=== PATIENT | female | born 1955 | race Caucasian/White ===

== ENCOUNTER 2018-07-22 14:28 | Outpatient (CLI) | payer MEDICARE ==
--- NOTE | 2018-07-22 16:09 | MRI ---
BRAIN MRI WITHOUT CONTRAST 07/22/18 COMPARISON: None. HISTORY: CVA, multiple strokes, mental and speech impairment. TECHNIQUE: Multiplanar and multisequence MR imaging of the brain is obtained with and without contrast. FINDINGS: There is a punctate focus of probable restricted diffusion within the periventricular white matter on the right adjacent to the atrium of the right lateral ventricle. Three additional foci of restricte d diffusion noted on the right consistent with acute infarction, the largest measuring 1 cm, involvi ng periventricular white matter adjacent to anterior aspect of right lateral ventricle, deep white m atter and posterior right frontal region, and subcortical white matter and right parietal region, all consistent with areas of acute infarction. There is no acute infarction identified within the brains tem or the posterior fossa/cerebellum. No acute infarction of the left cerebral hemisphere. The axial gradient echo imaging demonstrates no evidence for intracranial hemorrhage. There are numerous foci of increased T2 and FLAIR signal within the periventricular deep and subcorti tiffanie white matter evidence of small vessel disease. There is no midline shift or mass effect. Diffuse cerebral volume loss. Imaged paranasal sinuses/mastoid air cells demonstrate no acute findings. IMPRESSION: Multiple foci of acute infarction noted within the right cerebral hemisphere. There is extensive sma ll vessel disease with associated cerebral volume loss. No intracranial hemorrhage, midline shift or mass effect. Code Iris Schmitt made aware at 4pm on 07/22/2017. CTA head and neck recommended. POS: [facility]
--- NOTE | 2018-07-22 17:19 | ULT ---
CAROTID ARTERIAL DOPPLER ULTRASOUND: 07/22/18 COMPARISON: None. HISTORY: Vascular dementia. Multiple acute infarctions on the right seen on brain MRI also performed 07/22/18. TECHNIQUE: Multiplanar yañez scale sonographic imaging of arterial structures of the neck obtained with color joão w and spectral analysis . FINDINGS: Provided imaging demonstrates patency of right common carotid artery. However, there is an abnormal w aveform within the right common carotid artery which is of low amplitude and demonstrates a tardus pa rvus waveform. Similar abnormal waveforms are noted throughout the right CCA and right ICA with marke dly decreased velocities throughout the carotid system on the right. Right external carotid artery appears patent. Right vertebral artery is nonvisualized and may be occl uded. Left vertebral artery appears patent. Left CCA, ICA and ECA appear patent. Left vertebral artery is patent and demonstrates antegrade blood flow. There are elevated velocities noted within the left internal carotid artery measuring up to 203 cm/s correlating with a moderate de gree of stenosis (50-69%). ICA/CCA ratio on the left is 2.0. IMPRESSION: Abnormal high resistance tardus parvus waveforms with decreased amplitude involving the carotid syste m on the right. Further assessment via CT angiogram of the neck is advised. In addition, right verteb ral artery is not visualized and may be occluded. Elevated velocity within the interna carotid artery on the left suggests hemodynamically significant stenosis. POS: [facility]
== END 2018-07-22 14:29 | disposition home or self-care (01) ==
LOC: BICULT 14:28
PROVIDERS: ATTEND Family Medicine
DX: I63.9 Cerebral infarction, unspecified (principal); F01.50 Vascular dementia, unspecified severity, without behavioral disturbance, psychotic disturbance, mood disturbance, and anxiety; I67.9 Cerebrovascular disease, unspecified
CPT/HCPCS: 70551; 82570; 84156; 93880

== ENCOUNTER 2018-09-17 02:48 | Inpatient (IN) | payer MEDICARE ==
[2018-09-17] MEDS ORDERED: methylPREDNISolone Sod Succ/PF 125 MG/2 ML VIAL ONE (03:29)
[2018-09-17] MEDS ORDERED: Magnesium 2 GM/50 ML BAG (IN WATER) ONE (03:38)
--- NOTE | 2018-09-17 03:38 | PDOC.FPRHP ---
- History of Present Illness Chief Complaint: malaise History of Present Illness: 63yo F with extensive pmh including CHF, DM, CAD with stents presents as transfer from [facility] with complaint of 1 day hx of cough, sob, nausea and vomiting. Pt was hypotensive and febrile there with Chest CT showing evidence of RUL infiltrate. Pt was started on levophed and transfered to [place]. At time of exam pt was on bipap and unable to give much detail of hx. ED Course: Central Line placed, levophed, solumedrol, Mg, heparin - Allergies/Adverse Reactions Allergies Allergy/AdvReac Type Severity Reaction Status Date / Time iodine Allergy Unknown Verified 06/30/13 08:49 - Home Medications Medication Instructions Recorded Confirmed Type Clopidogrel Bisulfate [Plavix] 75 mg PO DAILY 06/30/13 06/30/13 History Isosorbide Dinitrate 20 mg PO BID 06/30/13 06/30/13 History Lovastatin [Altoprev] 20 mg PO HS 06/30/13 06/30/13 History Metoprolol Tartrate 100 mg PO DAILY 06/30/13 06/30/13 History Potassium Chloride [K-Dur] 20 meq PO BID 06/30/13 06/30/13 History Ranitidine HCl 150 mg PO BID 06/30/13 09/17/18 History Temazepam 30 mg PO HS 06/30/13 09/17/18 History Torsemide [Demadex] 50 mg PO DAILY 06/30/13 09/17/18 History glipiZIDE 10 mg PO BID 06/30/13 06/30/13 History metFORMIN HCl 1,000 mg PO BID- 06/30/13 06/30/13 History Ipratropium/Albuterol Sulfate 3 ml NEB PRN PRN #0 neb 07/07/13 09/17/18 Rx [DuoNeb] Levofloxacin [Levaquin] 750 mg PO 0600 #5 tab 07/07/13 Rx predniSONE 20 mg PO BID #10 tab 07/07/13 Rx Acetaminophen With Codeine 1 tablet PO Q6HR PRN 09/17/18 09/17/18 History [Tylenol with Codeine #3] Aspirin [Aspir-Low] 81 mg PO DAILY 09/17/18 09/17/18 History Atorvastatin Calcium 80 mg PO DAILY 09/17/18 09/17/18 History Fenofibrate Nanocrystallized 145 mg PO DAILY 09/17/18 09/17/18 History [Fenofibrate] Gabapentin 600 mg PO BID 09/17/18 09/17/18 History Insulin Degludec [Tresiba 80 unit SQ QAM 09/17/18 09/17/18 History Flextouch U-200] Levothyroxine Sodium [Synthroid] 50 mcg PO DAILY 09/17/18 09/17/18 History Metoprolol Succinate [Toprol Xl] 50 mg PO DAILY 09/17/18 09/17/18 History Nitroglycerin [Nitrostat] 0.4 mg SL Q5MIN PRN 09/17/18 09/17/18 History Prasugrel [Effient] 10 mg PO DAILY 09/17/18 09/17/18 History Tiotropium [Spiriva Handihaler] 18 mcg INH DAILY 09/17/18 09/17/18 History - History PMHx: HFrEF, COPD, DM, HTN, HLD, hypothyroid, NETTE, CVA, CKD 4, GERD PSHx: appendectomy, hysterectomy, cardiac stents, renal stent FHx: unable to obtain from pt Social: Hx of smoking use - Review of Systems ROS unobtainable: other (bipap- some ROS gained from ED chart review) Respiratory: reports: cough, shortness of breath Gastrointestinal: reports: nausea, vomiting Neurological: reports: other (denies pain anywhere) - Vital signs BP: [90/66] HR: [105] RR: [24] Tmax: [103.1] Pox: [94]% on [bipap] Wt: [107kg ] - Physical Exam Constitutional: other (moderate to severe respiratory distress) HEENT: normocephalic and atraumatic, EOMI, grossly normal vision, grossly normal hearing Neck: supple, trachea midline Chest: no-tender to palpation Heart: RRR, normal S1/S2, other (grade 4/6 holosystolic murmur, extremeties cool to touch) Lungs: good air movement, other (inspiratory and expiratory crackles in RUL) Abdomen: soft, bowel sounds present Musculoskeletal: normal structure, normal tone Neurological: no focal deficit, normal sensation Skin: no rash/lesions, good turgor Heme/Lymphatic: no purpura, no petechia FMR H&P: Results - Labs Result Diagrams: 09/17/18 05:04 FMR H&P: A/P - Problem List (1) Septic shock Current Visit: Yes Status: Acute Code(s): A41.9 - SEPSIS, UNSPECIFIED ORGANISM; R65.21 - SEVERE SEPSIS WITH SEPTIC SHOCK (2) Acute respiratory failure with hypoxia Current Visit: Yes Status: Acute Code(s): J96.01 - ACUTE RESPIRATORY FAILURE WITH HYPOXIA (3) NSTEMI (non-ST elevated myocardial infarction) Current Visit: Yes Status: Acute Code(s): I21.4 - NON-ST ELEVATION (NSTEMI) MYOCARDIAL INFARCTION (4) CHF (congestive heart failure) Current Visit: Yes Status: Acute Code(s): I50.9 - HEART FAILURE, UNSPECIFIED (5) COPD (chronic obstructive pulmonary disease) Current Visit: Yes Status: Acute (6) Diabetes mellitus Current Visit: Yes Status: Acute Code(s): E11.9 - TYPE 2 DIABETES MELLITUS WITHOUT COMPLICATIONS (7) CKD (chronic kidney disease) Current Visit: Yes Status: Acute Code(s): N18.9 - CHRONIC KIDNEY DISEASE, UNSPECIFIED (8) History of CVA (cerebrovascular accident) Current Visit: Yes Status: Acute Code(s): Z86.73 - PRSNL HX OF TIA (TIA), AND CEREB INFRC W/O RESID DEFICITS - Plan Shock A- Likely septic vs. cardiogenic. pt febrile and hypotensive on original presentation. Extremeties are cool now but pt is on levophed. CT showed "hint of infiltrate" in R upper lobe. Pt has central line in place with levophed and is now on bipap P- continue pressors - continue Vanc/Zosyn - Pt has received 30ml/kg bolus, LR at 125ml/hr NSTEMI A- trop 0.08--> 0.4, pt currently denies pain anywhere but NSTEMI seems highly possible given pts hypotension. P- trend trops - heparin gtt - cardiology consult in AM hypoxic respiratory distress A- etiology likely mixed, pneumonia and/or COPD exacerbation. Pt doing well on bipap at this time P- Continue bipap - continue solumedrol - continue duonebs COPD with possible exacerbation A- Pt has hx of copd. Exam does not support exacerbation but could be confounded by pneumonia and bipap sounds P- plan per above - continue home tiotroprium HFrEF A- on chart review pt has systolic dysfunction though pt has EF 50-55% in [facility] dating in 2012 P- will get echo Hx of CVA -continue home prasugrel CKD4 -stable, monitor kidney function DM -hold home meds as pt is NPO CODE: INTUBATION ONLY dispo: inpt, CCU FMR H&P: Upper Level - Pertinent history 63 yo WM PMH CAD s/p stenting, PVD s/p stents to left leg, NETTE, HTN, HFrEF, CKD4 , DM2, and COPD. Presents as transfer from [facility] with a CC of 1 day cough, SOB, and generalized malaise. Also reports nausea and vomiting. BP remained low in [place] in spite of NS 2L. Was started on levophed drip at 6 mcg/min and sent to [facility] for further care. She was requiring levophed 15 mcg/ min and a right IJ CVC was placed by the ER resident. I started the patient on BiPAP as her respiratory rate was in the 40s and she was showing signs of impending respiratory failure. [facility]: Labs, CXR, EKG, CT brain, Vanc, zosyn, duoneb, levophed, APAP, NS 30 mL/kg, [facility]: right IJ CVC, BiPAP, Th lovenox. - Pertinent findings Vitals: BP 82/59 on 15 mcg levophed, pulse 111, Respiration 42 GEN: Moderate respiratory distress, A&Ox4. speaks in short sentences. CV: Tachy, regular Pulm: poor air movement throughout. Neuro: Move all limbs equally. CN 2-12 grossly intact. Labs: Trop 0.08-> 0.477, BNP 694, lactic acid 2.5-> 1.0, Cr 2.8 (baseline) UA unremarkable, Procal pending. CXR: NO acute processes CT brain: Chronic microvascular changes CT Chest: RUL and lingular infiltrate. EKG: Sinus tach, mild ST depressions anterior and lateral leads (<2 mm) - Plan Date/Time: 09/17/18 [id number] I, Сергей Arboleda MD, have evaluated this patient and agree with findings/plan as outlined by internal controls manager resident. Pertinent changes/additions are listed here. 1. Shock: Septic vs cardiogenic Continue pressors, vanc, and zosyn. Start heparin gtt. 2. NSTEMI: This could be the cause of her shock or caused by demand ischemia. Trop went form 0.08 to 0.4. Will start heparin gtt per protocol. trend trop. Cardiology consultation in the morning. 3. Hypoxic Repiratory distress: continue BiPAP and wean as tolerated. Patient states she would like to be intubated if indicated. Breathing better with BiPAP. 4. HFrEF: only echo on files shows normal EF but clinic records report systolic dysfunction. will order TTE. 5. Hx CVA: continue prasugrel. 6. CKD4: stable 7. Possible COPD exacerbation: ARNAUD oconnell, continue solumedrol, currently on broad specturm Abx 8. Chronic conditions per Multimedia Author note 9. Diet: NPO while on BiPAP 10. PPx: heparin gtt, fall 11. CODE: INTUBATION ONLY. I personally discussed this with the patient at length who stated in the event of cardiac arrest or fatal arrhythmia, she would not desire CPR, defibrillation, or IV medications. She states she would agree to endotracheal intubation in the event of respiratory failure or AMS requiring Airway protection. Dispo: inpatient, ICU, >[address] Maloney.
[2018-09-17 03:44] LABS: INR-International Normal Ratio 1.1; PTT 27.7 SEC (22.9-36.1); Prothrombin Time 13.9 SEC (12.0-14.7)
[2018-09-17] MEDS ORDERED: Heparin 25,000 units/D5W 500 ML IVPB SCH (04:15)
[2018-09-17] MEDS ORDERED: Heparin 10,000 UNITS/ 10 ML VIAL SLOW IVP SCH (04:15)
[2018-09-17 04:28] LABS: CKMB 6.9 ng/mL (0-6.6)
[2018-09-17 05:11] LABS: Hemoglobin 10.9 g/dL (12.0-16.0); Platelet Count 224 thou/uL (130-400)
[2018-09-17] MEDS ORDERED: Heparin 25,000 units/D5W 500 ML ONE (05:13)
[2018-09-17 05:31] LABS: Actual Bicarbonate (HCO3a) 13.7 mEq/L (22-28); Analyzer IN Cardio ER; Base Excess (BEa) -12.4 mEq/L (-2.0 to +3.0); Calcium, Ionized 1.14 mmol/L (1.12-1.30); Potassium - ABG Lab 3.34 mmol/L (3.70-5.30)
[2018-09-17 05:39] LABS: O2 Tension (PaO2) 53.1 mmHg (> 80.0); Puncture Site RRA; pH, Arterial 7.25 (7.35-7.45)
[2018-09-17] MEDS ORDERED: Norepinephrine 8 MG/0.9% NS 250 ML ONE (07:16)
[2018-09-17] MEDS ORDERED: Norepinephrine 8 MG/250 ML BAG IVPB PRN (07:19)
[2018-09-17] MEDS ORDERED: Acetaminophen 325 MG TAB PO PRN (07:30)
[2018-09-17] MEDS ORDERED: Dextrose 50% Abboject 50 ML SYRINGE SLOW IVP PRN (07:30)
[2018-09-17] MEDS ORDERED: Dextrose 5% in Water 1,000 ML IV PRN (07:30)
[2018-09-17] MEDS ORDERED: Calcium Carbonate 500 MG ChewTAB PO PRN (07:30)
[2018-09-17] MEDS ORDERED: Bacteriostatic Water 30 ML VIAL FS PRN (07:58)
[2018-09-17] MEDS ORDERED: Piperacillin/Tazobactam 4.5 GM in Sodium Chloride 0.9% 100 ML IVPB SCH (08:00)
[2018-09-17 08:14] LABS: Actual Bicarbonate (HCO3a) 13.3 mEq/L (22-28); Base Excess (BEa) -11.7 mEq/L (-2.0 to +3.0); CO2 Tension 27.5 mmHg (35.0-45.0); Calcium, Ionized 1.15 mmol/L (1.12-1.30); Carboxyhemoglobin (COHb) 0.3 gm% (0.0-3.0); Hemoglobin (Hb) 11.1 g/dL (12.0-16.0); O2 Tension (PaO2) 244.3 mmHg (> 80.0); Potassium - ABG Lab 3.45 mmol/L (3.70-5.30)
[2018-09-17 08:17] LABS: ALV-art Gradient 77.825 (0-20); Puncture Site LRA
--- NOTE | 2018-09-17 08:52 | RAD ---
SINGLE VIEW OF THE CHEST: COMPARISON: None. HISTORY: Chest pain and shortness of breath. FINDINGS: One view of the chest shows a normal-size cardiomediastinal silhouette with atherosclerotic calcifica tions in the aorta. Increased interstitial lung markings are present. There is no evidence of conso lidation, mass, or pleural effusion. IMPRESSION: No evidence of acute cardiopulmonary disease. POS: [facility]
[2018-09-17] MEDS ORDERED: Vancomycin HCl 1.5 GM in Sodium Chloride 0.9% 250 ML 300 ML IVPB SCH (09:00)
[2018-09-17] MEDS ORDERED: Spiriva 18 MCG CAP (Box of 5 Caps) INH SCH (09:00)
[2018-09-17] MEDS ORDERED: Prasugrel 10 MG TAB PO SCH (09:00)
[2018-09-17] MEDS: Lactated Ringer's 1,000 ML IV SCH ×2 (09:15→16:58)
[2018-09-17] MEDS ORDERED: methylPREDNISolone Sod Succ/PF 125 MG/2 ML VIAL IVP SCH (09:30)
[2018-09-17 10:57] LABS: Troponin I 0.886 ng/mL (< 0.028)
[2018-09-17] MEDS ORDERED: Rocuronium Bromide 10 MG/ML (10ML VIAL) ONE (11:11)
[2018-09-17] MEDS: HumaLOG 300 UNITS/3 ML VIAL SC PRN ×3 (13:43→21:34)
--- NOTE | 2018-09-17 14:02 | CON ---
DATE OF CONSULTATION: REASON FOR CONSULTATION: Elevated troponin. HISTORY OF PRESENT ILLNESS: Ms. Darnell is a 63-year-old woman, who is followed by Dr. Jamie Loving. She recently presented with cough, congestion, and shortness of breath. She was found to be hypotensive when she showed up at [place]. She states the reason she went to [place] was because her thought she was having another stroke. Given hypotension, she was placed on antibiotic therapy and Levophed. CT scan confirmed right upper lobe infiltrate. Her max troponin has been 0.88. She has no current complaints of chest pain or pressure. Her BNP is 694. PAST MEDICAL HISTORY: CAD, status post stent placement; carotid disease; COPD; diabetes mellitus; hypertension; hyperlipidemia; hypothyroidism; obstructive sleep apnea; chronic kidney disease; acid reflux; appendectomy; and hysterectomy. SOCIAL HISTORY: Previous tobacco abuse. REVIEW OF SYMPTOMS: Ten-point review of systems is reviewed as above, otherwise negative. PHYSICAL EXAMINATION: GENERAL: Patient is a pleasant female, who is in no acute distress. She does appear older than her stated age. VITAL SIGNS: Blood pressure 86/65, currently on Levophed; heart rate 97; and respiratory rate is 20. NEUROLOGIC: The patient is alert and oriented x3 with no focal neurologic deficits. HEENT: Sclerae without icterus. Mouth has moist mucous membranes with normal pallor. NECK: No JVD. Carotid upstroke brisk. No bruits bilaterally. LUNGS: Clear to auscultation with unlabored respirations. BACK: No scoliosis or kyphosis. CARDIAC: Regular rate and rhythm with normal S1 and S2. No S3 or S4 noted. No significant rubs, murmurs, thrills, or gallops noted throughout the precordium. PMI is not displaced. There is no parasternal heave. ABDOMEN: Soft, nontender, nondistended. No peritoneal signs present. No hepatosplenomegaly. No abnormal striae. EXTREMITIES: 2+ femoral and 2+ dorsalis pedis pulses. No cyanosis, clubbing, or edema. SKIN: No gross abnormalities. LABORATORY DATA: As above including a hemoglobin of 10.9, platelet count of 224. Creatinine 2.8 with GFR of 17, glucose 215, HbA1c is 6.9, CO2 of 17. EKG shows normal sinus rhythm with ST-T wave changes suggesting LVH. IMPRESSION: 1. Type 2 myocardial infarction. 2. Pneumonia with likely sepsis. 3. Septic shock. 4. Coronary artery disease. 5. Status post bypass surgery. RECOMMENDATIONS: Ms. Darnell does not appear to have an acute ruptured plaque event. Her elevated troponin is secondary to hypotension and likely sepsis from pneumonia. At this point, would recommend conservative therapy. Would not recommend a more aggressive approach. Would recommend heparin for 24 hours, then discontinue. Would add Plavix, aspirin. We will hold ERICA inhibitor therapy and ARB due to renal issues. Would add beta-nahum therapy when blood pressure is more stable. Otherwise, I have no further recommendations. Job ID: [id number]
[2018-09-17] MEDS ORDERED: Prevnar 13-Val Conj/PF 0.5 ML SYRINGE IM ONE (16:00)
[2018-09-17] MEDS: Piperacillin/Tazobactam 2.25 GM in Sodium Chloride 0.9% 100 ML IVPB SCH ×2 (16:56→23:11)
[2018-09-17] MEDS: Norepinephrine 8 MG/0.9% NS 250 ML IVPB SCH ×2 (16:59→23:11)
[2018-09-17] MEDS: methylPREDNISolone Sod Succ/PF 125 MG/2 ML VIAL IVP SCH (20:49)
[2018-09-17 23:59] LABS: CKMB 10.1 ng/mL (0-6.6)
[2018-09-18] MEDS: Lactated Ringer's 1,000 ML IV SCH ×4 (00:36→23:44)
[2018-09-18] MEDS: Norepinephrine 8 MG/0.9% NS 250 ML IVPB SCH ×6 (04:29→23:43)
[2018-09-18 04:49] LABS: #Eosinphils 0.1 thou/uL (0.0-0.7); #Lymphocytes 0.8 thou/uL (1.20-3.40); #Monocytes 0.4 thou/uL (0.11-0.59); #Neutrophils 9.7 thou/uL (1.40-6.50); %Basophils 0.1 % (0.0-1.0); %Eosinophils 0.7 % (0.0-10.0); %Lymphocytes 7.1 % (21.0-51.0); %Monocytes 3.4 % (0.0-10.0); %Neutrophils 88.7 % (42.0-75.0); Mean Corpuscular HGB CONC 33.3 g/dL (32.0-36.0); Mean Corpuscular Hemoglobin 33.5 pg (27.0-31.0); Mean Platelet Volume 6.9 fL (7.4-10.4); Platelet Count 237 thou/uL (130-400); RBC Distribution Width 13.3 % (11.5-14.5); Red Blood Cell (RBC) Count 2.98 mill/uL (4.20-5.40); White Blood Cell (WBC) Count 10.9 thou/uL (4.8-10.8)
[2018-09-18 05:07] LABS: Anion Gap 17 mmol/L (10-20); BUN (Urea Nitrogen) 40 mg/dL (9.8-20.1); Calc. Creatinine Clearance 40 mL/min (70-130); Calcium 8.8 mg/dL (7.8-10.44); Carbon Dioxide 15 mmol/L (23-31); Chloride 108 mmol/L (98-107); Estimated GFR-MDRD 20; Glucose 362 mg/dL (80-115); Potassium 3.3 mmol/L (3.5-5.1); Sodium 137 mmol/L (136-145)
[2018-09-18] MEDS: Ondansetron ODT 4 MG TAB PO PRN (05:13)
[2018-09-18] MEDS: HumaLOG 300 UNITS/3 ML VIAL SC PRN ×4 (06:23→20:57)
--- NOTE | 2018-09-18 07:05 | PDOC.FM ---
- Subjective Subjective: Patient has been on and off BiPAP all night, she will request it when she starts feeling SOB. She reports her SOB has improved some since admission. She is still having SOB, cough. Nebs help some. She denies any fevers, chills, chest pain. She does endorse some nausea overnight that was improved with zofran. - Objective MAR Reviewed: Yes Vital Signs & Weight: Vital Signs (12 hours) Temp Pulse Resp Pulse Ox 09/18/18 04:00 98.3 F 09/18/18 03:30 103 H 28 H 100 09/18/18 00:00 99.1 F 09/17/18 22:20 105 H 26 H 100 09/17/18 20:00 100.0 F H 100 09/17/18 19:15 97 29 H 100 Weight Weight 107 kg Most Recent Monitor Data Heart Rate from ECG 107 NIBP 94/73 NIBP BP-Mean 80 Respiration from ECG 22 SpO2 100 I&O: 09/17/18 09/18/18 09/19/18 05:59 06:59 06:59 Intake Total Output Total Balance Result Diagrams: 09/18/18 04:42 09/18/18 04:42 Phys Exam - Physical Examination tachypneic with use of accessory mm of respiration on NC HEENT: moist MMs, sclera anicteric Respiratory: wheezing present poor air movement, use of accessory mm of respiration, tachypneic tachycardic, 4/6 systolic murmur loudest on left Gastrointestinal: soft, non-tender, no distention, positive bowel sounds Musculoskeletal: no edema, pulses present Neurological: non-focal, moves all 4 limbs Psychiatric: normal affect, A&O x 3 Dx/Plan (1) Septic shock Code(s): A41.9 - SEPSIS, UNSPECIFIED ORGANISM; R65.21 - SEVERE SEPSIS WITH SEPTIC SHOCK Status: Acute (2) NSTEMI (non-ST elevated myocardial infarction) Code(s): I21.4 - NON-ST ELEVATION (NSTEMI) MYOCARDIAL INFARCTION Status: Acute (3) CAP (community acquired pneumonia) Code(s): J18.9 - PNEUMONIA, UNSPECIFIED ORGANISM Status: Acute Qualifiers: Laterality: right Lung location: upper lobe of lung Qualified Code(s): J18.1 - Lobar pneumonia, unspecified organism (4) Acute respiratory failure with hypoxia Code(s): J96.01 - ACUTE RESPIRATORY FAILURE WITH HYPOXIA Status: Acute (5) COPD (chronic obstructive pulmonary disease) Status: Acute Qualifiers: COPD type: COPD with acute exacerbation Qualified Code(s): J44.1 - Chronic obstructive pulmonary disease with (acute) exacerbation (6) CHF (congestive heart failure) Code(s): I50.9 - HEART FAILURE, UNSPECIFIED Status: Acute Qualifiers: Heart failure type: systolic Heart failure chronicity: chronic Qualified Code(s): I50.22 - Chronic systolic (congestive) heart failure (7) CKD (chronic kidney disease) Code(s): N18.9 - CHRONIC KIDNEY DISEASE, UNSPECIFIED Status: Acute Qualifiers: Chronic kidney disease stage: stage 4 (severe) Qualified Code(s): N18.4 - Chronic kidney disease, stage 4 (severe) (8) Diabetes mellitus Code(s): E11.9 - TYPE 2 DIABETES MELLITUS WITHOUT COMPLICATIONS Status: Acute Qualifiers: Diabetes mellitus type: type 2 Diabetes mellitus shelter insulin use: with buttermaker continuous churn use Diabetes mellitus complication status: with kidney complications Diabetes mellitus complication detail: with chronic kidney disease Chronic kidney disease stage: stage 4 (severe) Qualified Code(s): E11.22 - Type 2 diabetes mellitus with diabetic chronic kidney disease; N18.4 - Chronic kidney disease, stage 4 (severe); Z79.4 - prison (current) use of insulin (9) History of CVA (cerebrovascular accident) Code(s): Z86.73 - PRSNL HX OF TIA (TIA), AND CEREB INFRC W/O RESID DEFICITS Status: Acute (10) HTN (hypertension) Code(s): I10 - ESSENTIAL (PRIMARY) HYPERTENSION Status: Acute Qualifiers: Hypertension type: essential hypertension Qualified Code(s): I10 - Essential (primary) hypertension (11) HLD (hyperlipidemia) Code(s): E78.5 - HYPERLIPIDEMIA, UNSPECIFIED Status: Acute Qualifiers: Hyperlipidemia type: unspecified Qualified Code(s): E78.5 - Hyperlipidemia , unspecified (12) CAD (coronary artery disease) Code(s): I25.10 - ATHSCL HEART DISEASE OF [place] CORONARY ARTERY W/O ANG PCTRS Status: Acute Qualifiers: Coronary Disease-Associated Artery/Lesion type: [place] artery [place] vs. transplanted heart: [place] heart Associated angina: angina presence unspecified Qualified Code(s): I25.10 - Atherosclerotic heart disease of [place] coronary artery without angina pectoris - Plan Plan: Shock Likely septic 2/2 CAP, but considering cardiogenic cause as well. pt febrile and hypotensive on original presentation. CT showed interstitial opacities in R upper lobe and lingula. Pt has central line in place with levophed and is now on bipap. s/p 30mL/kg fluid bolus. Procalcitonin 3.39, lactate initially 2.5, has downtrended to 1. Blood Cx no growth at 12 hours. - continue pressors, attempt to wean levophed as tolerated, currently at 30. - continue Vanc/Zosyn - LR at 125ml/hr - Echo NSTEMI trop 0.08->1.[address] depression in lateral leads - Dr. Dumont with cards was consulted and he recommended heparin tx for 24 hours and to start plavix and aspirin. Restart home beta nahum once pt no longer hypotensive. - heparin gtt d/c'd this AM Acute hypoxic respiratory failure Etiology likely mixed, pneumonia and/or COPD exacerbation. Pt doing well on bipap at this time, she is switching on and off of it as tolerated. - Continue bipap prn - continue solumedrol - continue duonebs - Dr. Morin with pulm has been consulted, appreciate recs COPD Exacerbation Pt has hx of COPD, wheezing heard on exam. - plan per above - continue home tiotroprium HFrEF on chart review pt has systolic dysfunction though pt has EF 50-55% in [facility] dating in 2012 - Echo CAD s/p stents - Pt on prasugrel at home, will give plavix while here in hospital - Cont aspirin - Will restart beta nahum once pt no longer hypotensive Hx of CVA - Pt on prasugrel at home, will give plavix while here in hospital - Cont aspirin CKDIV - stable, monitor kidney function - Avoid nephrotoxic agents DM2 Pt on 80 units insulin daily. Have been giving aggressive sliding scale, and pt has required 40 units while remaining NPO. Her glucose has been uncontrolled in 200s-400s. - Will start 50 units lantus this AM - Continue aggressive sliding scale - Hypoglycemia protocol Hypothyroidism TSH WNL - Cont home synthroid Lines/Tubes: R femoral CVC 09/17, Humphreys catheter 3/9 VTE ppx: was on heparin gtt with SCD's, this was d/c'd this AM, will start ppx heparin CODE: INTUBATION ONLY dispo: inpt, CCU
[2018-09-18] MEDS ORDERED: Vancomycin HCl 1.5 GM in Sodium Chloride 0.9% 250 ML 300 ML IVPB SCH (08:00)
[2018-09-18] MEDS ORDERED: VANCOMYCIN IVPB PRN (08:00)
--- NOTE | 2018-09-18 08:33 | PDOC.CTH ---
Cardiology Progress Note - Subjective Pt appears worse today. Increase in respirations noted. Eho findings suggest severe - Objective Vital Signs Temp Pulse Resp Pulse Ox 09/18/18 07:39 100 09/18/18 07:35 100 24 H 100 09/18/18 04:00 98.3 F 09/18/18 03:30 103 H 28 H 100 09/18/18 00:00 99.1 F 09/17/18 22:20 105 H 26 H 100 09/17/18 20:00 100.0 F H 100 Weight 235 lb 14.314 oz 09/17/18 09/18/18 09/19/18 05:59 06:59 06:59 Intake Total Output Total Balance - Physical Examination General/Neuro: alert & oriented x3, NAD Neck: no JVD present Lungs: other: (labored breathing with rales, crackles bilaterally) Heart: RRR Abdomen: no HSM, NT/ND Extremities: + edema B - Telemetry Telemetry Rhythm: ST - Labs Result Diagrams: 09/18/18 04:42 09/18/18 04:42 Troponin/CKMB CK-MB (CK-2) 10.1 ng/mL (0-6.6) H* 09/17/18 23:03 Troponin I 1.370 ng/mL (< 0.028) H* 09/17/18 23:03 - Assessment/Plan Right upper lobe infiltrate Severe CAD s/p stent DM Obesity NETTE ELevated troponin Previous CVA Acute on chronci RI Recommend BIPAP Very difficult situation Pt with continued hypotension requiring levophed suspicious for pneumonia Pt with severe on recent echo Continue supportive care Will need assessment of AV once pt os more hemodynamically stable Discussed D NI with pt. they are unsure and would like to discuss (pts present) I did state her prognosis appears poor
[2018-09-18] MEDS: Piperacillin/Tazobactam 2.25 GM in Sodium Chloride 0.9% 100 ML IVPB SCH ×3 (08:55→23:45)
[2018-09-18] MEDS: methylPREDNISolone Sod Succ/PF 125 MG/2 ML VIAL IVP SCH (08:57)
[2018-09-18] MEDS ORDERED: Clopidogrel Bisulfate 75 MG TAB PO SCH (09:00)
[2018-09-18] MEDS ORDERED: methylPREDNISolone Sod Succ/PF 125 MG/2 ML VIAL IVP SCH ×2 (09:00)
[2018-09-18 09:03] LABS: Vancomycin, Random 19.7 ug/mL (See Comment)
[2018-09-18] MEDS: Aspirin 81 mg Enteric Coated Tablet PO SCH (09:27)
[2018-09-18] MEDS ORDERED: Insulin Glargine 50 UNITS in Pre-Filled Syringe 1 EACH SC SCH (10:30)
--- NOTE | 2018-09-18 10:34 | PRG ---
DATE OF SERVICE: 09/18/2018 SUBJECTIVE: This morning, she is awake, responsive. She was in noninvasive ventilation last night. OBJECTIVE: VITAL SIGNS: Sats are 100% on 3 L, pulse 100, and blood pressure 99/73. GENERAL: She denies any pain or discomfort. CHEST: Decreased breath sounds. No wheezing. CARDIAC: Normal S1 and S2. No gallops. ABDOMEN: Massive. NEUROLOGIC: Awake, alert, and responsive. LABORATORY DATA: White count 10,000, hemoglobin and hematocrit of 10 and 29, platelet count 237. BUN and creatinine are 40 and 2.38. Troponin is elevated. IMPRESSION: 1. Morbid obesity, obstructive sleep apnea. 2. Severe ASL, CVA. PLAN: Continue noninvasive ventilation mainly at nighttime. Continue neb treatments. Continue steroids. PT. We will follow. Await cultures. Job ID: [id number]
[2018-09-18] MEDS: Vancomycin HCl 750 MG in Sodium Chloride 0.9% 250 ML 250 ML IVPB SCH (11:15)
[2018-09-18] MEDS ORDERED: Heparin 5,000 UNITS/ML VIAL SC SCH (12:00)
[2018-09-18] MEDS ORDERED: Thiamine HCl 200 MG/2 ML VIAL SLOW IVP SCH (18:00)
[2018-09-18] MEDS: Hydrocortisone Sod Succ/PF 100 mg/2 ml Vial IVP SCH ×2 (18:11→23:45)
[2018-09-18] MEDS: Clopidogrel Bisulfate 75 MG TAB PO SCH (18:46)
[2018-09-18] MEDS: Heparin 5,000 UNITS/ML VIAL SC SCH (20:58)
[2018-09-19] MEDS: Norepinephrine 8 MG/0.9% NS 250 ML IVPB SCH ×5 (03:09→18:42)
[2018-09-19] MEDS: Ondansetron ODT 4 MG TAB PO PRN (03:09)
[2018-09-19 05:03] LABS: Hemoglobin 10.2 g/dL (12.0-16.0); Platelet Count 241 thou/uL (130-400)
[2018-09-19 05:24] LABS: Anion Gap 17 mmol/L (10-20); BUN (Urea Nitrogen) 42 mg/dL (9.8-20.1); Calc. Creatinine Clearance 40 mL/min (70-130); Calcium 8.6 mg/dL (7.8-10.44); Carbon Dioxide 16 mmol/L (23-31); Chloride 111 mmol/L (98-107); Estimated GFR-MDRD 21; Glucose 273 mg/dL (80-115); Sodium 141 mmol/L (136-145)
--- NOTE | 2018-09-19 05:28 | PDOC.CTH ---
Cardiology Progress Note - Subjective Off pressors. Stil require intermittent bipap - Objective Vital Signs Temp Pulse Resp Pulse Ox 09/19/18 04:00 97.6 F 09/19/18 02:56 105 H 33 H 94 L 09/19/18 00:00 97.5 F L 09/18/18 22:18 114 H 36 H 92 L 09/18/18 20:00 97.6 F 99 09/18/18 18:28 105 H 31 H 100 Weight 235 lb 14.314 oz 09/17/18 09/18/18 09/19/18 05:59 06:59 06:59 Intake Total 2789 Output Total 3105 Balance -316 - Physical Examination General/Neuro: alert & oriented x3, NAD Neck: carotid US brisk, no JVD present Lungs: other: (mildly labored (unchanged)) Heart: RRR Abdomen: no HSM, NT/ND, soft Extremities: + edema B - Labs Result Diagrams: 09/19/18 04:59 09/19/18 04:59 Troponin/CKMB CK-MB (CK-2) 10.1 ng/mL (0-6.6) H* 09/17/18 23:03 Troponin I 1.370 ng/mL (< 0.028) H* 09/17/18 23:03 - Assessment/Plan Right upper lobe infiltrate Severe CAD s/p stent DM Obesity NETTE ELevated troponin Previous CVA Acute on chronci RI poor prognosis Given severe , hypotension from likely sepsis and multi comorbidities, outcome appears poor. Discussed with pt and yesterday. They had questions about TAVR. Certainly an option if she doers not improve and she wishes to be transferred to another facility for balloon valvoloplasty and or TAVR. She would need to be afebrile and (-) BC No other immediate recommendations from CV standpoint
[2018-09-19] MEDS: Hydrocortisone Sod Succ/PF 100 mg/2 ml Vial IVP SCH ×2 (05:36→11:46)
[2018-09-19] MEDS: Levothyroxine Sodium 50 MCG TAB PO SCH (05:36)
[2018-09-19] MEDS ORDERED: CCU Electrolyte Replacement 1 EACH FS ONE (06:06)
[2018-09-19] MEDS ORDERED: Potassium Chloride 20 MEQ TAB PO PRN (06:21)
[2018-09-19] MEDS ORDERED: CCU ELECTROLYTE REPLACEMENT PROTOCOL FS PRN (06:21)
[2018-09-19] MEDS ORDERED: Magnesium 2 GM/50 ML 2 GM in Premix Bag 1 BAG IVPB PRN (06:21)
[2018-09-19] MEDS ORDERED: Potassium Phosphate 12 MMOL in Sodium Chloride 0.9% 250 ML 250 ML IV PRN (06:21)
[2018-09-19] MEDS ORDERED: Potassium Phosphate 9 MMOL in Sodium Chloride 0.9% 100 ML IVPB PRN (06:21)
[2018-09-19] MEDS ORDERED: Potassium Chloride 40 MEQ in Sodium Chloride 0.9% 250 ML 250 ML IVPB PRN (06:21)
[2018-09-19] MEDS ORDERED: Potassium Phosphate 15 MMOL in Sodium Chloride 0.9% 250 ML 250 ML IV PRN (06:21)
[2018-09-19] MEDS ORDERED: Magnesium Oxide 400 MG TAB PO PRN ×2 (06:21)
[2018-09-19] MEDS: HumaLOG 300 UNITS/3 ML VIAL SC PRN ×3 (06:23→21:11)
--- NOTE | 2018-09-19 06:32 | PDOC.FM ---
- Subjective Subjective: Patient reports an episode of emesis overnight. She did not feel like the zofran really helped. She reports that her SOB has improved some. Per the nurse , they attempted to place her on BiPAP overnight for her NETTE, but she couldn't tolerate it for more than 45 minutes at a time. The patient denies fever, chills , abd pain, chest pain. She does endorse a dry cough. - Objective MAR Reviewed: Yes Vital Signs & Weight: Vital Signs (12 hours) Temp Pulse Resp Pulse Ox 09/19/18 04:00 97.6 F 09/19/18 02:56 105 H 33 H 94 L 09/19/18 00:00 97.5 F L 09/18/18 22:18 114 H 36 H 92 L 09/18/18 20:00 97.6 F 99 Weight Weight 107 kg Most Recent Monitor Data Heart Rate from ECG 109 NIBP 84/71 NIBP BP-Mean 75 Respiration from ECG 30 SpO2 98 I&O: 09/17/18 09/18/18 09/19/18 05:59 06:59 06:59 Intake Total 4898 Output Total 3265 Balance 1633 Result Diagrams: 09/19/18 04:59 09/19/18 04:59 Phys Exam - Physical Examination Constitutional: NAD HEENT: moist MMs, sclera anicteric Respiratory: no wheezing Rhonchi in all lung [place], worse at left apex, tachypneic on NC tachycardic, regular rhythm, 4/6 systolic murmur Gastrointestinal: soft, non-tender, no distention, positive bowel sounds trace pedal edema, 2+ pedal pulses Neurological: non-focal, moves all 4 limbs Psychiatric: normal affect, A&O x 3 Skin: normal turgor, cap refill <2 seconds Dx/Plan (1) Septic shock Code(s): A41.9 - SEPSIS, UNSPECIFIED ORGANISM; R65.21 - SEVERE SEPSIS WITH SEPTIC SHOCK Status: Acute (2) NSTEMI (non-ST elevated myocardial infarction) Code(s): I21.4 - NON-ST ELEVATION (NSTEMI) MYOCARDIAL INFARCTION Status: Acute (3) CAP (community acquired pneumonia) Code(s): J18.9 - PNEUMONIA, UNSPECIFIED ORGANISM Status: Acute Qualifiers: Laterality: right Lung location: upper lobe of lung Qualified Code(s): J18.1 - Lobar pneumonia, unspecified organism (4) Acute respiratory failure with hypoxia Code(s): J96.01 - ACUTE RESPIRATORY FAILURE WITH HYPOXIA Status: Acute (5) COPD (chronic obstructive pulmonary disease) Status: Acute Qualifiers: COPD type: COPD with acute exacerbation Qualified Code(s): J44.1 - Chronic obstructive pulmonary disease with (acute) exacerbation (6) CKD (chronic kidney disease) Code(s): N18.9 - CHRONIC KIDNEY DISEASE, UNSPECIFIED Status: Acute Qualifiers: Chronic kidney disease stage: stage 4 (severe) Qualified Code(s): N18.4 - Chronic kidney disease, stage 4 (severe) (7) Diabetes mellitus Code(s): E11.9 - TYPE 2 DIABETES MELLITUS WITHOUT COMPLICATIONS Status: Acute Qualifiers: Diabetes mellitus type: type 2 Diabetes mellitus termite treater insulin use: with senior living use Diabetes mellitus complication status: with kidney complications Diabetes mellitus complication detail: with chronic kidney disease Chronic kidney disease stage: stage 4 (severe) Qualified Code(s): E11.22 - Type 2 diabetes mellitus with diabetic chronic kidney disease; N18.4 - Chronic kidney disease, stage 4 (severe); Z79.4 - extermination inspector (current) use of insulin (8) History of CVA (cerebrovascular accident) Code(s): Z86.73 - PRSNL HX OF TIA (TIA), AND CEREB INFRC W/O RESID DEFICITS Status: Acute (9) HTN (hypertension) Code(s): I10 - ESSENTIAL (PRIMARY) HYPERTENSION Status: Acute Qualifiers: Hypertension type: essential hypertension Qualified Code(s): I10 - Essential (primary) hypertension (10) HLD (hyperlipidemia) Code(s): E78.5 - HYPERLIPIDEMIA, UNSPECIFIED Status: Acute Qualifiers: Hyperlipidemia type: unspecified Qualified Code(s): E78.5 - Hyperlipidemia , unspecified (11) CAD (coronary artery disease) Code(s): I25.10 - ATHSCL HEART DISEASE OF [place] CORONARY ARTERY W/O ANG PCTRS Status: Acute Qualifiers: Coronary Disease-Associated Artery/Lesion type: [place] artery [place] vs. transplanted heart: [place] heart Associated angina: angina presence unspecified Qualified Code(s): I25.10 - Atherosclerotic heart disease of [place] coronary artery without angina pectoris (12) Aortic stenosis, severe Code(s): I35.0 - NONRHEUMATIC AORTIC (VALVE) STENOSIS Status: Acute - Plan Plan: Shock Likely septic 2/2 CAP, but considering cardiogenic cause as well. pt febrile and hypotensive on original presentation. CT showed interstitial opacities in R upper lobe and lingula. Pt has central line in place with levophed and was requiring BiPAP initially. s/p 30mL/kg fluid bolus. Procalcitonin 3.39, lactate initially 2.5, has downtrended to 1. Blood Cx no growth at 12 hours. - continue levophed, attempt to wean as tolerated, currently at 35. - Will keep pt NPO while on pressors - continue Vanc/Zosyn - LR at 125ml/hr - Solu-cortef, Thiamine, and Vit C NSTEMI trop 0.08->1.[address] depression in lateral leads. s/p 24 hours heparin gtt. - Dr. Dumont with cards was consulted and he recommended to stop heparin and start plavix and aspirin. Restart home beta nahum once pt no longer hypotensive. Acute hypoxic respiratory failure Etiology likely mixed, pneumonia and/or COPD exacerbation. Pt doing well on NC at this time, she is switching on and off of BiPAP as tolerated. - Continue bipap prn - continue duonebs - Dr. Morin with pulm has been consulted, appreciate recs COPD Exacerbation Pt has hx of COPD, initial presentation consisted with exacerbation - plan per above - continue home tiotroprium Severe Aortic Stenosis Echo showed severe - Cards on board, appreciate recs HFrEF on chart review pt has systolic dysfunction, however EF 55-60% and diastolic function unable to be evaluated on this echo. CAD s/p stents - Pt on prasugrel at home, will give plavix while here in hospital - Cont aspirin - Will restart beta nahum once pt no longer hypotensive Hx of CVA - Pt on prasugrel at home, will give plavix while here in hospital - Cont aspirin CKDIV - stable, monitor kidney function - Avoid nephrotoxic agents DM2 Pt on 80 units insulin daily. Her glucose has been uncontrolled in 200s-300s. She is currently NPO, but is getting steroids which is likely contributing to elevated blood sugars. - Will increase lantus to 50 units as blood sugars still uncontrolled - Continue aggressive sliding scale - Hypoglycemia protocol Hypothyroidism TSH WNL - Cont home synthroid Hypokalemia K 3.0 - Will replace and monitor NPO day 3 Prognosis: poor Lines/Tubes: R femoral CVC 09/17, Humphreys catheter 09/17 VTE ppx: heparin ppx CODE: INTUBATION ONLY dispo: inpt, CCU Addendum - Attending - Attending Attestation Date/Time: 09/19/18 1122 I personally evaluated the patient and discussed the management with Dr. Stanley I agree with the History, Examination, Assessment and Plan documented above with any addition or exceptions noted below. Morbidly obese female with reported severe remains on levophed/fluids to maintain MAP. Patient prognosis guarded termite treater agree with V/Q scan r/o PE.
[2018-09-19] MEDS: Potassium Chloride 40 MEQ in Premix Bag 1 BAG IVPB PRN (06:48)
--- NOTE | 2018-09-19 07:39 | CON ---
DATE OF CONSULTATION: HISTORY OF PRESENT ILLNESS: This is a 63-year-old morbidly obese female, from [place], who was admitted with mental status change and sepsis syndrome. She is presently on noninvasive ventilation. Unable to give any history, in the ICU on the BiPAP. She is a little bit more responsive. She is morbidly obese. Additional information is that she has a previous history of apparently CVA. PAST MEDICAL HISTORY: Well outlined, previous respiratory failure, previous COPD, congestive heart failure, diabetes, hyperlipidemia, high cholesterol, high triglyceride, and renal failure. PAST SURGICAL HISTORY: Previous surgeries including apparently appendectomy, hernia operation, hysterectomy, and aortic valve surgery. MEDICATIONS: Her list of medicine from home includes: 1. Prednisone 20 twice a day. 2. Metformin 1000 twice a day. 3. Glipizide 10 twice a day. 4. Demadex 50. 5. Spiriva. 6. Temazepam. 7. Effient 10 a day. 8. Metoprolol 100 a day. 9. Synthroid 50 a day. 10. Isosorbide 20 twice a day. 11. Insulin. 12. Plavix 75. REVIEW OF SYSTEMS: Otherwise difficult to obtain. SOCIAL HISTORY: Alcohol and tobacco abuse history is otherwise unknown. She has seen Dr. Mcdaniel in the office before. PHYSICAL EXAMINATION: VITAL SIGNS: Saturations 100% on BiPAP, temperature 96, pulse 98, and blood pressure 99/65. CHEST: Decreased breath sounds. Minimal rhonchi. CARDIAC: Normal S1 and S2. No gallops. ABDOMEN: Soft without masses. LABORATORY DATA: PO2 is 244, pCO2 of 12, pH 7.30 on a BiPAP. Glucose of 322. X-ray shows cardiomegaly with nonspecific bibasilar atelectatic changes. CT shows no pulmonary emboli. CT brain shows no acute CVA. IMPRESSION: 1. Morbid obesity and respiratory failure. 2. Presumed sepsis syndrome. 3. Chronic obstructive pulmonary disease. 4. Azotemia. 5. Hypothyroidism. 6. Congestive heart failure. 7. Urinary tract infection. PLAN: I agree with broad-spectrum antibiotics. Deescalate once we have cultures back. Continue neb treatments, steroids, and supportive care. Reinstitute home chronic medication. This is a 45-minute critical time. Job ID: [id number]
[2018-09-19] MEDS: Piperacillin/Tazobactam 2.25 GM in Sodium Chloride 0.9% 100 ML IVPB SCH ×2 (09:00→16:26)
[2018-09-19] MEDS ORDERED: Insulin Glargine 50 UNITS in Pre-Filled Syringe 1 EACH SC SCH (09:00)
[2018-09-19] MEDS ORDERED: Insulin Glargine 60 UNITS in Pre-Filled Syringe 1 EACH SC SCH (09:00)
--- NOTE | 2018-09-19 09:08 | HP ---
ADDENDUM: Please see note from Dr. Langston, for which I agree. The patient was seen, evaluated, and discussed with the residents. HISTORY OF PRESENT ILLNESS: This is a 63-year-old patient, who is currently on BiPAP, so is not the best historian, but comes in from an out-of-town hospital with respiratory issues and worsening. It sounds like a mixture of congestive heart issues, Pickwickian syndrome, obstructive sleep apnea, and COPD, and initial ABG showed pH of 7.25, pCO2 of 32, pO2 of 53, so was put on BiPAP and sounds like she has already improved. CT done showed possible infiltrates, and so he is being treated like sepsis likely from pneumonia. Blood pressure was down and is needing Levophed, got a central line, that has improved since she has been given fluid resuscitation and the BiPAP. Past medical history, past surgical history, medications, social history, review of systems are all per the resident's history and physical, which I agree. PHYSICAL EXAMINATION: VITAL SIGNS: Blood pressure 90s/60s, on Levophed. GENERAL: Seems fairly comfortable on the BiPAP. Seems to have a pretty good CO. Very obese with large neck and is lying flat to help with blood pressure, but it may be affecting her breathing somewhat. Will follow commands. HEENT: Conjunctivae are not pale. Sclerae are anicteric. CHEST: Decreased breath sounds throughout, but moving air. I do not appreciate any crackles. HEART: Regular rate and rhythm. She does have a 3 if not 4/6 systolic murmur fully heard throughout. ABDOMEN: Does seem a little bit distended, a little bit tender, possible umbilical hernia. EXTREMITIES: Showed no edema. DIAGNOSTIC DATA: Again, the CT showed a possible infiltrate. White count is normal at 8.5, hemoglobin is 10.9. PT/PTT is normal. ABG as above. Creatinine 2.8, that sounds like baseline based on the out-of-town ER notes. Sugar a little but high at 215. A1c of 6.9 in July. Lactic acid levels 1. Troponin slightly elevated at 0.2, CK-MB elevated at 6.9 and then it looks like troponin went up to 0.4. Hyperlipidemia on previous labs in the computer. ASSESSMENT AND PLAN: 1. Respiratory distress likely from Pickwickian syndrome and possible infection. Plan is to continue BiPAP. We will get Pulmonary involved. 2. Infection and sepsis. Continue blood culture, IV fluids, pressors. 3. Diabetes, sliding scale. 4. Hyperlipidemia. 5. Major murmur. We make sure we get an echocardiogram to evaluate that. I do not see any others signs of bacterial endocarditis, but it is a possibility and so make sure we get an echo and could also be major valvular issues, which I suspect aortic sclerosis or possible stenosis. Job ID: [id number]
[2018-09-19] MEDS: Aspirin 81 mg Enteric Coated Tablet PO SCH (09:40)
[2018-09-19] MEDS: Heparin 5,000 UNITS/ML VIAL SC SCH ×3 (09:40→21:11)
[2018-09-19] MEDS: Clopidogrel Bisulfate 75 MG TAB PO SCH (09:40)
[2018-09-19] MEDS: Lactated Ringer's 1,000 ML IV SCH ×3 (10:25→22:43)
[2018-09-19 10:38] LABS: Vancomycin, Random 20.2 ug/mL (See Comment)
--- NOTE | 2018-09-19 11:17 | PRG ---
DATE OF SERVICE: 09/18/2018 ADDENDUM: Please see note from Dr. Stanley for which I agree. The patient was seen, evaluated, and discussed with the residents by the bedside. The patient is still in the ICU and not doing well. The echo showed severe aortic stenosis. Respiratory martinez, she is on again, off again BiPAP. Currently off it, but respiratory rate was definitely elevated. Troponin level had increased fairly high. Creatinine still elevated at 2.38. On exam, just decreased breath sounds. Some crackles as well. Still on very high-dose Levophed probably because of the infection and sepsis. Cardiology did not think it was cardiac oriented. Appreciate both Cardiology and Pulmonology input. But for now, we continue the same antibiotics, intermittent BiPAP, and pressure support with Levophed. Also, continuing diabetes management, thyroid management etc. Job ID: [id number]
[2018-09-19] MEDS: Vancomycin HCl 750 MG in Sodium Chloride 0.9% 250 ML 250 ML IVPB SCH (11:45)
[2018-09-19] MEDS: Pantoprazole 40 MG VIAL IVP SCH (11:47)
[2018-09-19 13:29] LABS: Actual Bicarbonate (HCO3a) 12.7 mEq/L (22-28); Base Excess (BEa) -13.4 mEq/L (-2.0 to +3.0); CO2 Tension 30.4 mmHg (35.0-45.0); Calcium, Ionized 1.26 mmol/L (1.12-1.30); Carboxyhemoglobin (COHb) 0.1 gm% (0.0-3.0); Hemoglobin (Hb) 10.4 g/dL (12.0-16.0); O2 Tension (PaO2) 216.6 mmHg (> 80.0); Potassium - ABG Lab 3.47 mmol/L (3.70-5.30)
[2018-09-19] MEDS ORDERED: Magnesium Sulfate 3 GM in Sodium Chloride 0.9% 100 ML IVPB SCH (13:30)
[2018-09-19 13:31] LABS: Puncture Site RR; pH, Arterial 7.24 (7.35-7.45)
[2018-09-19] MEDS ORDERED: Propofol 1,000 MG/100 ML VIAL IV ONE (13:38)
[2018-09-19] MEDS ORDERED: PROPOFOL 0 ML ONE (13:38)
[2018-09-19] MEDS ORDERED: Midazolam HCl 2 mg/2 ml Vial ONE (13:38)
[2018-09-19] MEDS ORDERED: Fentanyl 100 MCG/2 ML VIAL ONE (14:13)
[2018-09-19] MEDS ORDERED: Propofol 1,000 MG/100 ML VIAL IV PRN (14:50)
[2018-09-19] MEDS ORDERED: Morphine 2 MG/ML SYRINGE SLOW IVP PRN (14:50)
[2018-09-19] MEDS ORDERED: Fentanyl BOLUS 250 ML IVPB PRN (14:50)
[2018-09-19] MEDS ORDERED: Propofol BOLUS 1,000 MG/100 ML VIAL IV PRN (14:50)
[2018-09-19] MEDS ORDERED: DISCONTINUE PREVIOUS NARCOTIC PAIN MEDICATIONS AND BENZODIAZEPINES FS SCH (14:50)
[2018-09-19] MEDS ORDERED: Rocuronium Bromide 10 MG/ML (10ML VIAL) IVPB SCH (15:00)
[2018-09-19] MEDS ORDERED: Fentanyl 100 MCG/2 ML VIAL SLOW IVP SCH (15:00)
[2018-09-19] MEDS ORDERED: Midazolam HCl 2 mg/2 ml Vial IVP SCH (15:00)
[2018-09-19 15:15] LABS: Base Excess (BEa) -14.1 mEq/L (-2.0 to +3.0); CO2 Tension 28.8 mmHg (35.0-45.0); Calcium, Ionized 1.25 mmol/L (1.12-1.30); Carboxyhemoglobin (COHb) 0.3 gm% (0.0-3.0); Hemoglobin (Hb) 10.4 g/dL (12.0-16.0); O2 Tension (PaO2) 248.1 mmHg (> 80.0); Potassium - ABG Lab 3.34 mmol/L (3.70-5.30)
[2018-09-19 15:18] LABS: Puncture Site RR; pH, Arterial 7.24 (7.35-7.45)
[2018-09-19] MEDS ORDERED: Dextrose 5% in Water 1,000 ML IV SCH (15:30)
--- NOTE | 2018-09-19 16:19 | PRG ---
DATE OF SERVICE: 09/19/2018 SUBJECTIVE: Jackie Darnell is not improved apparently overnight. She had significant respiratory distress when I saw her. She is still on pressors. OBJECTIVE: VITAL SIGNS: Heart rate is 118, blood pressure is in the 80s on Levophed, O2 saturation is 100% on 3 L cannula. GENERAL: She can only speak 3 or 4 words at a time. LUNGS: Remarkable for diffuse expiratory wheezes. HEART: Regular rhythm. ABDOMEN: Soft. EXTREMITIES: Without clubbing, cyanosis, or edema. LABORATORY DATA: Blood gas was ordered; pH was 7.24, CO2 30, PO2 216. White count is 10.9 yesterday, hemoglobin is 10.2 today, platelets 241 today. Sodium 141, potassium 3, chloride 111, bicarb 16, BUN 42, creatinine 2.35, glucose 273. Intake and output positive 1633. IMPRESSION: 1. Severe metabolic acidosis. 2. Chronic obstructive pulmonary disease with bronchospasm. 3. Acute on chronic kidney disease. 4. Impending respiratory failure. 5. Severe aortic stenosis. 6. Hypotension, requiring pressors. Cultures have been reviewed and from 09/16, are negative. She certainly continues to appear clinically septic, although I suppose this could be an acid-base disorder purely resulting from her renal failure. I have recommended intubation. CRITICAL CARE TIME: 35 minutes independent procedures. Job ID: [id number]
[2018-09-19] MEDS: Lorazepam 2 MG/ML VIAL SLOW IVP PRN (16:47)
[2018-09-19] MEDS: Sodium Bicarbonate 150 MEQ in Dextrose 5% in Water 1,000 ML IV SCH (18:35)
[2018-09-19] MEDS ORDERED: Hydrocortisone Sod Succ/PF 100 mg/2 ml Vial IVP SCH (20:00)
[2018-09-19] MEDS: methylPREDNISolone Sod Succ 40 MG VIAL IVP SCH (20:18)
[2018-09-19] MEDS: Norepinephrine 16 MG in Dextrose 5% in Water 234 ML IVPB PRN (20:18)
[2018-09-19] MEDS: Vasopressin 40 UNIT, Admixture Fee 1 EACH in Sodium Chloride 0.9% 100 ML IV SCH (22:42)
[2018-09-20] MEDS: Piperacillin/Tazobactam 2.25 GM in Sodium Chloride 0.9% 100 ML IVPB SCH ×4 (00:09→23:38)
[2018-09-20] MEDS: methylPREDNISolone Sod Succ/PF 125 MG/2 ML VIAL ONE ×2 (00:50→06:18)
[2018-09-20] MEDS: methylPREDNISolone Sod Succ 40 MG VIAL IVP SCH ×5 (00:51→23:38)
[2018-09-20] MEDS: Lorazepam 2 MG/ML VIAL SLOW IVP PRN ×3 (00:51→07:52)
[2018-09-20 04:35] LABS: Band 11 % (5-11); Lymphocytes 14 % (21-51); MDiff Complete? YES; Mean Corpuscular HGB CONC 34.7 g/dL (32.0-36.0); Mean Corpuscular Hemoglobin 33.5 pg (27.0-31.0); Mean Corpuscular Volume 96.5 fL (78.0-98.0); Mean Platelet Volume 7.3 fL (7.4-10.4); Monocytes 3 % (0-10); Neutrophil 72 % (42-75); Nucleated RBC 1 % (0); Platelet Count 162 thou/uL (130-400); Platelet Morphology Comment Appears Adequate; RBC Distribution Width 13.2 % (11.5-14.5); Red Blood Cell (RBC) Count 2.39 mill/uL (4.20-5.40); White Blood Cell (WBC) Count 6.8 thou/uL (4.8-10.8)
[2018-09-20 04:43] LABS: Anion Gap 13 mmol/L (10-20); BUN (Urea Nitrogen) 37 mg/dL (9.8-20.1); Calc. Creatinine Clearance 42 mL/min (70-130); Calcium 8.2 mg/dL (7.8-10.44); Carbon Dioxide 19 mmol/L (23-31); Chloride 117 mmol/L (98-107); Estimated GFR-MDRD 22; Glucose 234 mg/dL (80-115); Magnesium 2.2 mg/dL (1.6-2.6); Sodium 146 mmol/L (136-145)
[2018-09-20] MEDS: Sodium Bicarbonate 150 MEQ in Dextrose 5% in Water 1,000 ML IV SCH ×2 (04:44→17:27)
[2018-09-20 04:53] LABS: Potassium 2.6 mmol/L (3.5-5.1)
[2018-09-20] MEDS: Levothyroxine Sodium 50 MCG TAB PO SCH (06:19)
[2018-09-20] MEDS: Potassium Chloride 40 MEQ in Premix Bag 1 BAG IVPB PRN ×2 (06:19→14:45)
[2018-09-20] MEDS: Norepinephrine 16 MG in Dextrose 5% in Water 234 ML IVPB PRN (06:34)
[2018-09-20 06:44] VITALS: BMI 40.6
--- NOTE | 2018-09-20 06:47 | PDOC.FM ---
- Subjective Subjective: Patient intubated and sedated. She is responsive to painful stimuli. Currently on propofol for sedation. Afebrile. - Objective MAR Reviewed: Yes Vital Signs & Weight: Vital Signs (12 hours) Temp Pulse Resp BP Pulse Ox 09/20/18 06:00 30 H 09/20/18 04:00 99.0 F 30 H 09/20/18 03:52 76 105/76 09/20/18 02:00 30 H 09/20/18 00:23 97 93/69 09/20/18 00:00 99.1 F 30 H 09/19/18 22:14 104 H 75/57 L 09/19/18 22:00 30 H 09/19/18 20:00 99.4 F 30 H 100 09/19/18 19:05 108 H 77/49 L Weight Weight 110.6 kg Most Recent Monitor Data Heart Rate from ECG 79 NIBP 108/63 NIBP BP-Mean 78 Respiration from ECG 30 SpO2 100 I&O: 09/18/18 09/19/18 09/20/18 06:59 06:59 06:59 Intake Total 4898 6958.6 Output Total 3265 4365 Balance 1633 2593.6 Result Diagrams: 09/20/18 03:45 09/20/18 03:45 Phys Exam - Physical Examination resting comfortably, sedated on ventilator HEENT: moist MMs, sclera anicteric rhonchi in all lung koroma, on ventilator Cardiovascular: RRR 4/6 systolic murmur Gastrointestinal: soft, non-tender, no distention, positive bowel sounds Musculoskeletal: no edema, pulses present on sedation Skin: normal turgor, cap refill <2 seconds Dx/Plan (1) Septic shock Code(s): A41.9 - SEPSIS, UNSPECIFIED ORGANISM; R65.21 - SEVERE SEPSIS WITH SEPTIC SHOCK Status: Acute (2) NSTEMI (non-ST elevated myocardial infarction) Code(s): I21.4 - NON-ST ELEVATION (NSTEMI) MYOCARDIAL INFARCTION Status: Acute (3) CAP (community acquired pneumonia) Code(s): J18.9 - PNEUMONIA, UNSPECIFIED ORGANISM Status: Acute Qualifiers: Laterality: right Lung location: upper lobe of lung Qualified Code(s): J18.1 - Lobar pneumonia, unspecified organism (4) Acute respiratory failure with hypoxia Code(s): J96.01 - ACUTE RESPIRATORY FAILURE WITH HYPOXIA Status: Acute (5) COPD (chronic obstructive pulmonary disease) Status: Acute Qualifiers: COPD type: COPD with acute exacerbation Qualified Code(s): J44.1 - Chronic obstructive pulmonary disease with (acute) exacerbation (6) CKD (chronic kidney disease) Code(s): N18.9 - CHRONIC KIDNEY DISEASE, UNSPECIFIED Status: Acute Qualifiers: Chronic kidney disease stage: stage 4 (severe) Qualified Code(s): N18.4 - Chronic kidney disease, stage 4 (severe) (7) Diabetes mellitus Code(s): E11.9 - TYPE 2 DIABETES MELLITUS WITHOUT COMPLICATIONS Status: Acute Qualifiers: Diabetes mellitus type: type 2 Diabetes mellitus shelter insulin use: with senior systems programmer use Diabetes mellitus complication status: with kidney complications Diabetes mellitus complication detail: with chronic kidney disease Chronic kidney disease stage: stage 4 (severe) Qualified Code(s): E11.22 - Type 2 diabetes mellitus with diabetic chronic kidney disease; N18.4 - Chronic kidney disease, stage 4 (severe); Z79.4 - retirement (current) use of insulin (8) History of CVA (cerebrovascular accident) Code(s): Z86.73 - PRSNL HX OF TIA (TIA), AND CEREB INFRC W/O RESID DEFICITS Status: Acute (9) HTN (hypertension) Code(s): I10 - ESSENTIAL (PRIMARY) HYPERTENSION Status: Acute Qualifiers: Hypertension type: essential hypertension Qualified Code(s): I10 - Essential (primary) hypertension (10) HLD (hyperlipidemia) Code(s): E78.5 - HYPERLIPIDEMIA, UNSPECIFIED Status: Acute Qualifiers: Hyperlipidemia type: unspecified Qualified Code(s): E78.5 - Hyperlipidemia , unspecified (11) CAD (coronary artery disease) Code(s): I25.10 - ATHSCL HEART DISEASE OF [place] CORONARY ARTERY W/O ANG PCTRS Status: Acute Qualifiers: Coronary Disease-Associated Artery/Lesion type: [place] artery [place] vs. transplanted heart: [place] heart Associated angina: angina presence unspecified Qualified Code(s): I25.10 - Atherosclerotic heart disease of [place] coronary artery without angina pectoris (12) Aortic stenosis, severe Code(s): I35.0 - NONRHEUMATIC AORTIC (VALVE) STENOSIS Status: Acute - Plan Plan: Shock Likely septic 2/2 CAP. pt febrile and hypotensive on original presentation. CT showed interstitial opacities in R upper lobe and lingula. s/p 30mL/kg fluid bolus on admission and 2L NS boluses on 09/19. Procalcitonin 3.39->4.23, lactate 2.5->1. Blood Cx no growth at 12 hours. - continue levophed, currently on 10. Continue vasopressin, currently on 0.04 - continue Vanc/Zosyn - Will recheck procal and if continues to trend up, will consider broadening abx coverage. - Solumedrol, Thiamine, and Vit C Acute hypoxic respiratory failure Etiology likely mixed, pneumonia and/or COPD exacerbation. Pt was initially on BiPAP, but then was able to maintain sats on NC, however, she continued having to work hard to breath and remained tachypneic. On 09/19, Dr. Mcdaniel made the decision to intubate her due to her impending respiratory failure. V/Q scan was considered yesterday, however pulm did not think this was necessary at this time. ABG pre-intubation: pH 7.24, pCO2 30.4, pO2 216.6 ABG post-intubation: pH 7.24, pCO2 28.8, pO2 248.1 Vent settings: SIMV rate 30, pressure support 10, FiO2 40%, PEEP 5 - Continue mechanical ventilation - On propofol 5 for sedation - Recheck ABG this AM - Repeat CXR - Pulm has been consulted, appreciate recs NSTEMI trop 0.08->1.[address] depression in lateral leads. s/p 24 hours heparin gtt. - Dr. Dumont with cards was consulted and he recommended to stop heparin and start plavix and aspirin. Restart home beta nahum once pt no longer hypotensive. COPD Exacerbation Pt has hx of COPD, initial presentation consistent with exacerbation - plan per above - continue home tiotroprium Severe Aortic Stenosis Echo showed severe - Cards on board, appreciate recs HFrEF on chart review pt has systolic dysfunction, however EF 55-60% and diastolic function unable to be evaluated on this echo. CAD s/p stents - Pt on prasugrel at home, will give plavix while here in hospital - Cont aspirin - Will restart beta nahum once pt no longer hypotensive Hx of CVA - Pt on prasugrel at home, will give plavix while here in hospital - Cont aspirin CKDIV - stable, monitor kidney function - Avoid nephrotoxic agents DM2 Pt on 80 units insulin daily. Her glucose has been uncontrolled in 200s-300s. She is currently NPO, but is getting steroids which is likely contributing to elevated blood sugars. - Will increase lantus to 70 units as blood sugars still uncontrolled - Continue aggressive sliding scale - Hypoglycemia protocol Hypothyroidism TSH WNL - Cont home synthroid Hypokalemia K 2.6 with normal mag. Likely 2/2 GI losses with pt being NPO - Will replace and monitor NPO day 4 Prognosis: poor Lines/Tubes: R femoral CVC 09/17, Humphreys catheter 09/17, ET tube 09/19 VTE ppx: heparin ppx CODE: INTUBATION ONLY dispo: inpt, CCU Addendum - Attending - Attending Attestation Date/Time: 09/20/18 1113 I personally evaluated the patient and discussed the management with Dr. Stanley I agree with the History, Examination, Assessment and Plan documented above with any addition or exceptions noted below.
[2018-09-20 07:55] LABS: Actual Bicarbonate (HCO3a) 17.6 mEq/L (22-28); Base Excess (BEa) -6.2 mEq/L (-2.0 to +3.0); CO2 Tension 28.5 mmHg (35.0-45.0); Calcium, Ionized 1.16 mmol/L (1.12-1.30); Carboxyhemoglobin (COHb) 0.3 gm% (0.0-3.0); Hemoglobin (Hb) 8.4 g/dL (12.0-16.0); O2 Tension (PaO2) 111.5 mmHg (> 80.0); Potassium - ABG Lab 2.63 mmol/L (3.70-5.30); pH, Arterial 7.41 (7.35-7.45)
[2018-09-20 07:57] LABS: ALV-art Gradient 138.075 (0-20); Puncture Site LB
[2018-09-20] MEDS ORDERED: Insulin Glargine 70 UNITS in Pre-Filled Syringe 1 EACH SC SCH (09:00)
--- NOTE | 2018-09-20 09:04 | OP ---
DATE OF PROCEDURE: 09/19/2018 PROCEDURE PERFORMED: Fiberoptic intubation. DESCRIPTION OF PROCEDURE: The patient was in the sitting position. A bite block was placed in her mouth after throat had been sprayed with Cetacaine spray. Vocal cords were quickly visualized using fiberoptic scope and she was quickly intubated. Abundant retained clear thick mucus was noted in her trachea. The scope was withdrawn and she was connected to mechanical ventilation, and then scope was reintroduced. 10 mL of saline was used to irrigate out all of the secretions encountered in her trachea and right mainstem bronchus. These were not purulent. She was then sedated with Versed and chemically paralyzed, and we will start the sedation protocol. Job ID: [id number]
--- NOTE | 2018-09-20 09:16 | RAD ---
PORTABLE CHEST 1 VIEW: Date: 09/20/18 Time: 0440 hours HISTORY: Respiratory failure. FINDINGS/IMPRESSION: Comparison made with exam of 09/17/18. Interval placement of endotracheal tube and nasogastric tube has occurred. The tip of an ET tube is a t the level of the aortic knob. Nasogastric tube can be traced into the stomach with tip excluded fro m the film. The heart is enlarged. There is mild pulmonary vascular congestion. No pneumothoraces or large effusions are seen. There may be an infiltrate in the right infrahilar lung. POS: OFF
[2018-09-20 10:21] LABS: Vancomycin, Trough 19.7 ug/mL
[2018-09-20] MEDS: Heparin 5,000 UNITS/ML VIAL SC SCH ×3 (10:54→20:47)
[2018-09-20] MEDS: Pantoprazole 40 MG VIAL IVP SCH (10:54)
[2018-09-20] MEDS: Clopidogrel Bisulfate 75 MG TAB PO SCH (10:54)
[2018-09-20] MEDS: Aspirin 81 mg Enteric Coated Tablet PO SCH (10:55)
[2018-09-20] MEDS: Vancomycin HCl 750 MG in Sodium Chloride 0.9% 250 ML 250 ML IVPB SCH (11:11)
[2018-09-20] MEDS: HumaLOG 300 UNITS/3 ML VIAL SC PRN ×3 (12:37→20:46)
[2018-09-20] MEDS: Vasopressin 40 UNIT, Admixture Fee 1 EACH in Sodium Chloride 0.9% 100 ML IV SCH (15:30)
--- NOTE | 2018-09-20 16:27 | PRG ---
DATE OF SERVICE: 09/20/2018 SUBJECTIVE: Jackie Darnell will awaken. She moves all extremities. She denies pain anywhere. She has no abdominal tenderness. OBJECTIVE: VITAL SIGNS: Heart rates in the 80s. Blood pressure is 89/66, respiratory rate 30. LUNGS: Clear. HEART: Regular rhythm. ABDOMEN: Nontender even to deep palpation. EXTREMITIES: Without edema. LABORATORY DATA: White count 6.8, hemoglobin 8.0, platelets 162,000. Intake and output positive 2563 coming in today. Sodium 146, potassium , chloride 117, bicarb 19, BUN 37, creatinine 2.23, pH 7.41, CO2 of 28, PO2 111. IMPRESSION: 1. Respiratory failure. 2. Chronic obstructive pulmonary disease with bronchospasm yesterday. 3. Severe metabolic acidosis. It is a mixture of a hyperchloremic acidosis and renal failure acidosis. No clear source of sepsis has been identified and cultures from the 8th remain negative. PLAN: We will continue with supportive care. I do not see where Nephrology is following Ms. Darnell. She would probably benefit from a Nephrology input. She will continue with steroids, nebulized treatments, mechanical ventilation. CRITICAL CARE TIME: 30 minutes. Job ID: [id number]
--- NOTE | 2018-09-20 17:56 | PDOC.CTH ---
Cardiology Progress Note - Subjective The pt seen and examined. No overnight events. At this moment, the pt is on Vent with sedation. - Objective Vital Signs Temp Pulse Resp BP Pulse Ox 09/20/18 16:00 98.6 F 30 H 09/20/18 15:28 83 89/66 L 09/20/18 14:00 34 H 09/20/18 13:16 89 111/86 09/20/18 12:00 99.6 F 30 H 09/20/18 10:29 77 117/82 09/20/18 10:00 30 H 09/20/18 08:00 30 H 99 09/20/18 07:40 86 09/20/18 07:00 99.4 F 09/20/18 06:00 30 H Admit Weight 235 lb 14.314 oz Weight 243 lb 13.3 oz 09/19/18 09/20/18 09/21/18 06:59 06:59 06:59 Intake Total 4898 6958.6 922.3 Output Total 3265 4365 2505 Balance 1633 2593.6 -1582.7 - Physical Examination Lungs: other: (very diminished at bases) Heart: RRR Abdomen: soft Extremities: other: (generalized edema) - Telemetry Telemetry Rhythm: SR - Labs Result Diagrams: 09/21/18 04:40 09/21/18 12:22 Troponin/CKMB CK-MB (CK-2) 10.1 ng/mL (0-6.6) H* 09/17/18 23:03 Troponin I 1.370 ng/mL (< 0.028) H* 09/17/18 23:03 - Assessment/Plan 1. Severe - possible Valvoplasty and/or TAVR? 2. Acute Resp. Failure 2/2 severe COPD ex and sepsis 2/2 CAP - 3. NSTEMI - on ASA and Plavix; will resume bblocker once the pt's VS is more stable 4. CAD with hx of stent 5. HTN - Hypotensive; On Levophed drip 6. DM 7. CKD - 8. Hypothyroidism 9. Hx of CVA - on ASA and Plavix 10 NETTE 11. Obese MAR reviewed Pt. seen and eval. by me. I agree with the A/P by the [employer] CLERK. Scattered rales .gjm Review of Systems - Review of Systems Constitutional: reports: see HPI
[2018-09-21 04:57] LABS: Hemoglobin 8.1 g/dL (12.0-16.0); Hypochromia SLIGHT = 6-15 cells (100X) (0-5/hpf); Lymphocytes 10 % (21-51); MDiff Complete? YES; Mean Corpuscular HGB CONC 34.3 g/dL (32.0-36.0); Mean Corpuscular Volume 96.1 fL (78.0-98.0); Neutrophil 90 % (42-75); Nucleated RBC 1 % (0); Platelet Count 183 thou/uL (130-400); Platelet Morphology Comment Appears Adequate; RBC Distribution Width 13.3 % (11.5-14.5); Red Blood Cell (RBC) Count 2.46 mill/uL (4.20-5.40); White Blood Cell (WBC) Count 10.1 thou/uL (4.8-10.8)
[2018-09-21 05:02] LABS: Anion Gap 14 mmol/L (10-20); BUN (Urea Nitrogen) 32 mg/dL (9.8-20.1); Calc. Creatinine Clearance 46 mL/min (70-130); Calcium 8.3 mg/dL (7.8-10.44); Carbon Dioxide 24 mmol/L (23-31); Chloride 111 mmol/L (98-107); Estimated GFR-MDRD 23; Glucose 268 mg/dL (80-115); Sodium 146 mmol/L (136-145)
[2018-09-21 05:12] LABS: Potassium 2.8 mmol/L (3.5-5.1)
[2018-09-21] MEDS: Potassium Chloride 40 MEQ in Premix Bag 1 BAG IVPB PRN ×2 (05:40→15:12)
[2018-09-21] MEDS: methylPREDNISolone Sod Succ 40 MG VIAL IVP SCH ×3 (05:40→17:42)
[2018-09-21] MEDS: Levothyroxine Sodium 50 MCG TAB PO SCH (05:41)
[2018-09-21] MEDS: HumaLOG 300 UNITS/3 ML VIAL SC PRN ×2 (05:41→12:22)
[2018-09-21] MEDS: Vasopressin 40 UNIT, Admixture Fee 1 EACH in Sodium Chloride 0.9% 100 ML IV SCH ×2 (05:41→22:45)
[2018-09-21] MEDS: Norepinephrine 16 MG in Dextrose 5% in Water 234 ML IVPB PRN (05:42)
[2018-09-21] MEDS: Sodium Bicarbonate 150 MEQ in Dextrose 5% in Water 1,000 ML IV SCH (06:41)
[2018-09-21 07:25] LABS: Actual Bicarbonate (HCO3a) 22.2 mEq/L (22-28); Analyzer IN Cardio OR; Base Excess (BEa) -0.1 mEq/L (-2.0 to +3.0); Calcium, Ionized 1.12 mmol/L (1.12-1.30); Carboxyhemoglobin (COHb) 1.1 gm% (0.0-3.0); Hemoglobin (Hb) 7.9 g/dL (12.0-16.0); O2 Tension (PaO2) 84.5 mmHg (> 80.0); Potassium - ABG Lab 2.95 mmol/L (3.70-5.30); Puncture Site LRA; pH, Arterial 7.53 (7.35-7.45)
--- NOTE | 2018-09-21 07:39 | PDOC.FM ---
- Subjective Subjective: Patient remains intubated and sedated on the ventilator. She will awaken to sound and touch. She is currently on versed for sedation and levophed and vasopressin for pressure support. - Objective MAR Reviewed: Yes Vital Signs & Weight: Vital Signs (12 hours) Temp Pulse Resp BP Pulse Ox 09/21/18 06:42 89 110/82 09/21/18 06:41 82 30 H 99 09/21/18 06:00 30 H 09/21/18 04:00 99.1 F 30 H 09/21/18 03:50 85 107/79 09/21/18 02:00 30 H 09/21/18 00:50 88 100/73 09/21/18 00:00 99.4 F 30 H 09/20/18 22:24 84 99/74 09/20/18 22:00 30 H 09/20/18 20:00 99.2 F 30 H 99 Weight Admit Weight 107 kg Weight 110.6 kg Most Recent Monitor Data Heart Rate from ECG 93 NIBP 119/91 NIBP BP-Mean 100 Respiration from ECG 30 SpO2 99 I&O: 09/20/18 09/21/18 09/22/18 06:59 06:59 06:59 Intake Total 6958.6 3837.3 Output Total 4365 4990 Balance 2593.6 -1152.7 Result Diagrams: 09/21/18 04:40 09/21/18 04:40 Phys Exam - Physical Examination Constitutional: NAD HEENT: moist MMs, sclera anicteric Respiratory: no wheezing rhonchi in all lung [place]. Cardiovascular: RRR 4/6 holosystolic murmur Gastrointestinal: soft, non-tender, no distention, positive bowel sounds Musculoskeletal: no edema, pulses present sedated Deviation from normal: sedated Skin: normal turgor, cap refill <2 seconds Dx/Plan (1) Septic shock Code(s): A41.9 - SEPSIS, UNSPECIFIED ORGANISM; R65.21 - SEVERE SEPSIS WITH SEPTIC SHOCK Status: Acute (2) NSTEMI (non-ST elevated myocardial infarction) Code(s): I21.4 - NON-ST ELEVATION (NSTEMI) MYOCARDIAL INFARCTION Status: Acute (3) CAP (community acquired pneumonia) Code(s): J18.9 - PNEUMONIA, UNSPECIFIED ORGANISM Status: Acute Qualifiers: Laterality: right Lung location: upper lobe of lung Qualified Code(s): J18.1 - Lobar pneumonia, unspecified organism (4) Acute respiratory failure with hypoxia Code(s): J96.01 - ACUTE RESPIRATORY FAILURE WITH HYPOXIA Status: Acute (5) COPD (chronic obstructive pulmonary disease) Status: Acute Qualifiers: COPD type: COPD with acute exacerbation Qualified Code(s): J44.1 - Chronic obstructive pulmonary disease with (acute) exacerbation (6) CKD (chronic kidney disease) Code(s): N18.9 - CHRONIC KIDNEY DISEASE, UNSPECIFIED Status: Acute Qualifiers: Chronic kidney disease stage: stage 4 (severe) Qualified Code(s): N18.4 - Chronic kidney disease, stage 4 (severe) (7) Diabetes mellitus Code(s): E11.9 - TYPE 2 DIABETES MELLITUS WITHOUT COMPLICATIONS Status: Acute Qualifiers: Diabetes mellitus type: type 2 Diabetes mellitus nursing home insulin use: with intermodal dispatcher use Diabetes mellitus complication status: with kidney complications Diabetes mellitus complication detail: with chronic kidney disease Chronic kidney disease stage: stage 4 (severe) Qualified Code(s): E11.22 - Type 2 diabetes mellitus with diabetic chronic kidney disease; N18.4 - Chronic kidney disease, stage 4 (severe); Z79.4 - jail (current) use of insulin (8) History of CVA (cerebrovascular accident) Code(s): Z86.73 - PRSNL HX OF TIA (TIA), AND CEREB INFRC W/O RESID DEFICITS Status: Acute (9) HTN (hypertension) Code(s): I10 - ESSENTIAL (PRIMARY) HYPERTENSION Status: Acute Qualifiers: Hypertension type: essential hypertension Qualified Code(s): I10 - Essential (primary) hypertension (10) HLD (hyperlipidemia) Code(s): E78.5 - HYPERLIPIDEMIA, UNSPECIFIED Status: Acute Qualifiers: Hyperlipidemia type: unspecified Qualified Code(s): E78.5 - Hyperlipidemia , unspecified (11) CAD (coronary artery disease) Code(s): I25.10 - ATHSCL HEART DISEASE OF [place] CORONARY ARTERY W/O ANG PCTRS Status: Acute Qualifiers: Coronary Disease-Associated Artery/Lesion type: [place] artery [place] vs. transplanted heart: [place] heart Associated angina: angina presence unspecified Qualified Code(s): I25.10 - Atherosclerotic heart disease of [place] coronary artery without angina pectoris (12) Aortic stenosis, severe Code(s): I35.0 - NONRHEUMATIC AORTIC (VALVE) STENOSIS Status: Acute - Plan Plan: Shock Likely septic 2/2 CAP. pt febrile and hypotensive on original presentation. CT showed interstitial opacities in R upper lobe and lingula. s/p 30mL/kg fluid bolus on admission and 2L NS boluses on 09/19. Procalcitonin 3.39->4.23->2.43, lactate 2.5->1. Blood Cx no growth at 48 hours. - continue levophed, currently on 10. Continue vasopressin, currently on 0.04 - continue Vanc/Zosyn - Solumedrol, Thiamine, and Vit C Acute hypoxic respiratory failure Etiology likely mixed, pneumonia and/or COPD exacerbation. Pt was initially on BiPAP, but then was able to maintain sats on NC, however, she continued having to work hard to breath and remained tachypneic. On 09/19, Dr. Mcdaniel made the decision to intubate her due to her impending respiratory failure. V/Q scan was considered yesterday, however pulm did not think this was necessary at this time. ABG pre-intubation: pH 7.24, pCO2 30.4, pO2 216.6 ABG post-intubation: pH 7.24, pCO2 28.8, pO2 248.1 ABG 09/21: pH 7.53, pCO2 27, pO2 84.5 Vent settings: SIMV rate 30, pressure support 10, FiO2 40%, PEEP 5 - Continue mechanical ventilation - On versed for sedation - Repeat CXR - Pulm has been consulted, appreciate recs NSTEMI trop 0.08->1.[address] depression in lateral leads. s/p 24 hours heparin gtt. - Dr. Dumont with cards was consulted and he recommended to stop heparin and start plavix and aspirin. Restart home beta nahum once pt no longer hypotensive. COPD Exacerbation Pt has hx of COPD, initial presentation consistent with exacerbation - plan per above - continue home tiotroprium Severe Aortic Stenosis Echo showed severe - Cards on board, appreciate recs. Consider possible procedure once pt more stable. HFrEF on chart review pt has systolic dysfunction, however EF 55-60% and diastolic function unable to be evaluated on this echo. CAD s/p stents - Pt on prasugrel at home, will give plavix while here in hospital - Cont aspirin - Will restart beta nahum once pt no longer hypotensive Hx of CVA - Pt on prasugrel at home, will give plavix while here in hospital - Cont aspirin CKDIV - stable, monitor kidney function - Avoid nephrotoxic agents - Will consult Nephrology DM2 Pt on 80 units insulin daily. Her glucose has been uncontrolled in 200s-300s. She is currently NPO, but is getting steroids which is likely contributing to elevated blood sugars. - Will increase lantus to 80 units as blood sugars still uncontrolled - Continue aggressive sliding scale - Hypoglycemia protocol Hypothyroidism TSH WNL - Cont home synthroid Hypokalemia K 2.8 with normal mag. Likely 2/2 GI losses with pt being NPO - Will replace and monitor - Recheck at 1400 today NPO day 5 Prognosis: poor Lines/Tubes: R femoral CVC 09/17, Humphreys catheter 09/17, ET tube 09/19 VTE ppx: heparin ppx CODE: INTUBATION ONLY dispo: inpt, CCU Addendum - Attending - Attending Attestation Date/Time: 09/21/18 1127 I personally evaluated the patient and discussed the management with Dr. Stanley I agree with the History, Examination, Assessment and Plan documented above with any addition or exceptions noted below. Patient intubated resting well alkalosis noted this am. Dr Mcdaniel for Vent management rec.Potassium loss presumed due do GI wastage. Metabolic acidosis with nl gap opinion Nephrology r /o RTA other potential etiologies. Appreciate care rec Dr Mcdaniel. Culture remain negative she remains broad coverage with zosyn and vancomycin. Still dependant on pressors to maintain MAP. Will contact Spouse for status update today.
--- NOTE | 2018-09-21 07:41 | RAD ---
PORTABLE CHEST: HISTORY: Respiratory distress. COMPARISON: 09/20/2018 FINDINGS: An endotracheal tube is present. The tip is at the level of the molly and should be retracted sligh tly for better placement. The NG tube is below the hemidiaphragm. Heart size is enlarged. Parenchy mal lung changes are stable. IMPRESSION: Endotracheal tube slightly low in position; otherwise, stable chest. POS: [facility]
[2018-09-21] MEDS: Piperacillin/Tazobactam 2.25 GM in Sodium Chloride 0.9% 100 ML IVPB SCH ×2 (08:10→15:09)
[2018-09-21] MEDS: Pantoprazole 40 MG VIAL IVP SCH (08:37)
[2018-09-21] MEDS: Heparin 5,000 UNITS/ML VIAL SC SCH ×3 (08:37→21:45)
[2018-09-21] MEDS: Aspirin 81 mg Enteric Coated Tablet PO SCH (08:37)
[2018-09-21] MEDS: Clopidogrel Bisulfate 75 MG TAB PO SCH (08:37)
[2018-09-21] MEDS: Insulin Glargine 80 UNITS in Pre-Filled Syringe 1 EACH SC SCH (09:12)
[2018-09-21] MEDS ORDERED: Sodium Chloride 0.45% 500 ML IV SCH (11:15)
[2018-09-21] MEDS: Sodium Chloride 0.45% 1,000 ML IV SCH ×2 (11:21→13:59)
[2018-09-21] MEDS: Vancomycin HCl 750 MG in Sodium Chloride 0.9% 250 ML 250 ML IVPB SCH (11:26)
[2018-09-21 12:53] LABS: Phosphorus 2.1 mg/dL (2.3-4.7)
--- NOTE | 2018-09-21 12:56 | CON ---
DATE OF CONSULTATION: REASON FOR CONSULTATION: Elevated creatinine and hypernatremia. HISTORY OF PRESENT ILLNESS: This is a very pleasant 63-year-old female, who was admitted to the hospital on September 17 after respiratory failure and sleep apnea. The patient has been on pressors. She continues to make urine. Her creatinine prior to admission peaked to 3.5 and has gradually improved. Her baseline prior to that was 2.8. The patient's sodium has also increased to 146, and the patient can give no further history. Her echo is normal and continues to make urine. PAST MEDICAL HISTORY: CKD, hypertension, anemia, hypothyroidism, obstructive sleep apnea, CVA, chronic kidney disease, GERD, appendectomy, hysterectomy, cardiac stent, renal stent. FAMILY HISTORY: Unobtainable. SOCIAL HISTORY: Smoking history. REVIEW OF SYSTEM: Unobtainable. PHYSICAL EXAMINATION: GENERAL: The patient is resting. VITAL SIGNS: Afebrile, pulse 70, breathing 16, blood pressure was 90/50. GENERAL APPEARANCE AND MENTAL STATUS: Fair. HEAD/NECK: Normocephalic. Atraumatic. EYES: EOMI. No deformity. EARS: Clear. No ulcers. NOSE: Intact. No lesions. MOUTH: Clear. No discharge. THROAT: Clear. No exudate. LUNGS: Clear. No crackles. CARDIAC: S1, S2. No rub. ABDOMEN: Benign. Bowel sounds positive. GENITALIA/RECTUM: Humphreys absent. BACK/EXTREMITIES: Edema 0+. NEUROLOGIC: The patient is resting. LABORATORY DATA: Labs reviewed. ASSESSMENT: 1. Acute kidney injury, most likely due to decreased effective arterial blood volume. I would change IV fluids to half NS. 2. Hypernatremia, would change IV fluids to half NS. 3. Hypokalemia, on potassium replacement. 4. Metabolic acidosis, resolved. I would recommend getting a TSH as well as a cortisol level to evaluate the etiology of hypotension. Job ID: [id number]
[2018-09-21 13:14] LABS: Anion Gap 14 mmol/L (10-20); BUN (Urea Nitrogen) 30 mg/dL (9.8-20.1); Calc. Creatinine Clearance 46 mL/min (70-130); Carbon Dioxide 23 mmol/L (23-31); Chloride 111 mmol/L (98-107); Estimated GFR-MDRD 23; Glucose 234 mg/dL (80-115); Sodium 145 mmol/L (136-145)
[2018-09-21 13:30] LABS: Potassium 2.9 mmol/L (3.5-5.1)
--- NOTE | 2018-09-21 14:26 | ULT ---
RENAL ULTRASOUND: HISTORY: Acute renal insufficiency. FINDINGS: Real-time imaging of the kidneys was performed. Exam is limited by patient body habitus. The right kidney measures 12 and the left kidney 10.1 cm in size. There is a subtle hypoechoic area in the upper pole of the right kidney measuring 1.6 cm which was felt most likely to represent a cyst , somewhat difficult to characterize due to body habitus and the patient's difficulty in cooperating with this examination, the patient was intubated. There is no obstruction of either kidney. A Humphreys catheter is present in the bladder. IMPRESSION: 1. Possible small right renal cyst difficult to characterize due to technique factors. 2. No obstruction of either kidney. POS: [facility]
--- NOTE | 2018-09-21 14:30 | ULT ---
RIGHT UPPER QUADRANT ULTRASOUND: HISTORY: Sepsis and abdominal pain. FINDINGS: Real-time imaging of the right upper quadrant was performed. The exam is technically difficult. Thi s patient was intubated and was somewhat combative during the exam and body habitus. The gallbladder is distended. The gallbladder wall does appear slightly thick. It measures in the 5-6 mm range. A suggestion of some minimal pericholecystic fluid. There is also some trace free fluid adjacent to t he right lobe of the liver. The liver is of increased echogenicity. It measures 19.6 cm in length. The pancreas is completely obscured. The right kidney is within normal limits of size and not obstru cted. IMPRESSION: 1. Distended gallbladder with a suggestion of some mild gallbladder wall thickening and possibly larissa e gallbladder wall edema. There is some minimal pericholecystic fluid and trace ascites noted. I ca nnot exclude that this is an acalculus cholecystitis. No sludge or stones are seen within the gallbl adder. The common duct is 5 mm. 2. Fatty change of the liver which is borderline size. POS: [facility]
--- NOTE | 2018-09-21 17:51 | PRG ---
DATE OF SERVICE: 09/21/2018 OBJECTIVE: GENERAL: Ms. Lara remains mechanically ventilated. Her pressor requirements are slowly coming down. VITAL SIGNS: Heart rate in the 80s, blood pressure in the 90s, respiratory rates in the 20s to low 30s. LUNGS: Clear. HEART: Regular rhythm. ABDOMEN: Soft and still no guarding or masses. Abdominal ultrasound was done today to look at her kidneys and look at her gallbladder. There is some very mild gallbladder thickening, but nothing to explain this degree of sepsis. Fatty liver was noted. Renal ultrasound was also done which did not show any hydronephrosis. There is nothing on exam to suggest that she has bowel. LABORATORY DATA: White count 10, hemoglobin 8.1, platelets 183. Sodium 145, potassium 2.9, chloride 111, bicarb 22, BUN 30, creatinine 2.15, which is stable compared to earlier today and improved compared to yesterday slightly. IMPRESSION: Clinical sepsis/systemic inflammatory response with respiratory failure. There is no clear source of all of this. She is on steroids, so for all practical purposes, rule out adrenal crisis or adrenal insufficiency contributing. Echocardiogram shows normal ejection fraction, ruling out cardiogenic shock. Chest radiograph showed no clear-cut infiltrates. We will continue supportive care, weaning pressors as tolerated. Her acid-base disorder is improving. There is still a mixed acid-base disorder related to renal insufficiency and her hyperchloremia. Overall, she is stable. CRITICAL CARE TIME: 30 minutes. Job ID: [id number]
[2018-09-21] MEDS ORDERED: Digoxin 0.5 MG/2 ML AMP SLOW IVP SCH ×2 (18:45→21:00)
[2018-09-21] MEDS: Lorazepam 2 MG/ML VIAL SLOW IVP PRN (21:39)
[2018-09-21 23:36] LABS: Potassium 3.3 mmol/L (3.5-5.1)
[2018-09-22] MEDS: Piperacillin/Tazobactam 2.25 GM in Sodium Chloride 0.9% 100 ML IVPB SCH ×4 (00:15→23:20)
[2018-09-22] MEDS: Potassium Chloride 40 MEQ in Premix Bag 1 BAG IVPB PRN (00:16)
[2018-09-22] MEDS: methylPREDNISolone Sod Succ 40 MG VIAL IVP SCH ×5 (00:16→23:20)
[2018-09-22] MEDS: Sodium Chloride 0.45% 1,000 ML IV SCH ×3 (05:41→16:38)
[2018-09-22] MEDS: Levothyroxine Sodium 50 MCG TAB PO SCH (05:42)
[2018-09-22 06:04] LABS: Anion Gap 14 mmol/L (10-20); BUN (Urea Nitrogen) 29 mg/dL (9.8-20.1); Calc. Creatinine Clearance 51 mL/min (70-130); Calcium 8.3 mg/dL (7.8-10.44); Carbon Dioxide 22 mmol/L (23-31); Chloride 114 mmol/L (98-107); Estimated GFR-MDRD 26; Glucose 94 mg/dL (80-115); Potassium 3.7 mmol/L (3.5-5.1); Sodium 146 mmol/L (136-145)
[2018-09-22 06:05] LABS: Band 5 % (5-11); Hemoglobin 8.2 g/dL (12.0-16.0); Lymphocytes 13 % (21-51); MDiff Complete? YES; Mean Corpuscular HGB CONC 33.3 g/dL (32.0-36.0); Mean Corpuscular Hemoglobin 32.7 pg (27.0-31.0); Mean Corpuscular Volume 98.3 fL (78.0-98.0); Metamyelocyte 1 % (0-0); Monocytes 3 % (0-10); Neutrophil 78 % (42-75); Platelet Count 164 thou/uL (130-400); Platelet Morphology Comment Appears Adequate; RBC Distribution Width 13.6 % (11.5-14.5); White Blood Cell (WBC) Count 13.6 thou/uL (4.8-10.8)
[2018-09-22 06:48] LABS: CO2 Tension 33.9 mmHg (35.0-45.0); Calcium, Ionized 1.11 mmol/L (1.12-1.30); Carboxyhemoglobin (COHb) 0.8 gm% (0.0-3.0); Hemoglobin (Hb) 8.2 g/dL (12.0-16.0); O2 Tension (PaO2) 80.2 mmHg (> 80.0); Potassium - ABG Lab 3.64 mmol/L (3.70-5.30); pH, Arterial 7.43 (7.35-7.45)
[2018-09-22 06:49] LABS: ALV-art Gradient 162.625 (0-20); Puncture Site LRA
--- NOTE | 2018-09-22 07:26 | PDOC.FM ---
- Subjective Subjective: Pt remains intubated and sedated. She is responsive to verbal and physical stimuli. She is overbreathing the ventilator. - Objective MAR Reviewed: Yes Vital Signs & Weight: Vital Signs (12 hours) Temp Pulse Resp BP Pulse Ox 09/22/18 06:08 92 102/75 09/22/18 06:06 92 30 H 97 09/22/18 06:00 26 H 09/22/18 04:54 81 98/73 09/22/18 04:00 98.4 F 29 H 09/22/18 02:04 83 96/66 09/22/18 02:00 35 H 09/22/18 00:00 98.8 F 33 H 09/21/18 22:26 87 96/70 09/21/18 22:00 35 H 09/21/18 21:45 84 09/21/18 20:00 98.6 F 38 H 97 09/21/18 19:37 86 Weight Admit Weight 107 kg Weight 110.6 kg Most Recent Monitor Data Heart Rate from ECG 76 NIBP 102/75 NIBP BP-Mean 84 Respiration from ECG 26 SpO2 99 I&O: 09/21/18 09/22/18 09/23/18 06:59 06:59 06:59 Intake Total 3837.3 4800.9 Output Total 4990 2825 Balance -1152.7 1975.9 Result Diagrams: 09/22/18 05:40 09/22/18 05:40 Phys Exam - Physical Examination Constitutional: NAD (resting comfortably on the ventilator) HEENT: moist MMs, sclera anicteric Respiratory: no wheezing, no rales, no rhonchi, clear to auscultation bilateral Cardiovascular: RRR 4/6 systolic murmur Gastrointestinal: soft, non-tender, no distention, positive bowel sounds Musculoskeletal: no edema, pulses present Skin: normal turgor, cap refill <2 seconds Dx/Plan (1) Septic shock Code(s): A41.9 - SEPSIS, UNSPECIFIED ORGANISM; R65.21 - SEVERE SEPSIS WITH SEPTIC SHOCK Status: Acute (2) NSTEMI (non-ST elevated myocardial infarction) Code(s): I21.4 - NON-ST ELEVATION (NSTEMI) MYOCARDIAL INFARCTION Status: Acute (3) CAP (community acquired pneumonia) Code(s): J18.9 - PNEUMONIA, UNSPECIFIED ORGANISM Status: Acute Qualifiers: Laterality: right Lung location: upper lobe of lung Qualified Code(s): J18.1 - Lobar pneumonia, unspecified organism (4) Acute respiratory failure with hypoxia Code(s): J96.01 - ACUTE RESPIRATORY FAILURE WITH HYPOXIA Status: Acute (5) COPD (chronic obstructive pulmonary disease) Status: Acute Qualifiers: COPD type: COPD with acute exacerbation Qualified Code(s): J44.1 - Chronic obstructive pulmonary disease with (acute) exacerbation (6) CKD (chronic kidney disease) Code(s): N18.9 - CHRONIC KIDNEY DISEASE, UNSPECIFIED Status: Acute Qualifiers: Chronic kidney disease stage: stage 4 (severe) Qualified Code(s): N18.4 - Chronic kidney disease, stage 4 (severe) (7) Diabetes mellitus Code(s): E11.9 - TYPE 2 DIABETES MELLITUS WITHOUT COMPLICATIONS Status: Acute Qualifiers: Diabetes mellitus type: type 2 Diabetes mellitus terminal gauger supervisor insulin use: with shelter use Diabetes mellitus complication status: with kidney complications Diabetes mellitus complication detail: with chronic kidney disease Chronic kidney disease stage: stage 4 (severe) Qualified Code(s): E11.22 - Type 2 diabetes mellitus with diabetic chronic kidney disease; N18.4 - Chronic kidney disease, stage 4 (severe); Z79.4 - watermelon harvesting supervisor (current) use of insulin (8) History of CVA (cerebrovascular accident) Code(s): Z86.73 - PRSNL HX OF TIA (TIA), AND CEREB INFRC W/O RESID DEFICITS Status: Acute (9) HTN (hypertension) Code(s): I10 - ESSENTIAL (PRIMARY) HYPERTENSION Status: Acute Qualifiers: Hypertension type: essential hypertension Qualified Code(s): I10 - Essential (primary) hypertension (10) HLD (hyperlipidemia) Code(s): E78.5 - HYPERLIPIDEMIA, UNSPECIFIED Status: Acute Qualifiers: Hyperlipidemia type: unspecified Qualified Code(s): E78.5 - Hyperlipidemia , unspecified (11) CAD (coronary artery disease) Code(s): I25.10 - ATHSCL HEART DISEASE OF [place] CORONARY ARTERY W/O ANG PCTRS Status: Acute Qualifiers: Coronary Disease-Associated Artery/Lesion type: [place] artery [place] vs. transplanted heart: [place] heart Associated angina: angina presence unspecified Qualified Code(s): I25.10 - Atherosclerotic heart disease of [place] coronary artery without angina pectoris (12) Aortic stenosis, severe Code(s): I35.0 - NONRHEUMATIC AORTIC (VALVE) STENOSIS Status: Acute - Plan Plan: Shock Likely septic 2/2 CAP. pt febrile and hypotensive on original presentation. CT showed interstitial opacities in R upper lobe and lingula. s/p 30mL/kg fluid bolus on admission and 2L NS boluses on 09/19. Procalcitonin 3.39->4.23->2.43, lactate 2.5->1. Blood Cx no growth at 48 hours. Pneumonia is not a clear source at this time, but there is not an alternative that has been found. Abd US showed distended gallbladder with wall thickening and mild pericholecystic fluid , but no stones or sludge. Per Dr. Mcdaniel, this would be unlikely to cause this degree of illness. - continue levophed, currently on 8. Continue vasopressin, currently on 0.04 - continue Vanc/Zosyn - Will check AM cortisol to r/o adrenal insufficiency. - TSH mildly low, will check free T4 - Solumedrol, Thiamine, and Vit C Acute hypoxic respiratory failure Etiology likely mixed, pneumonia and/or COPD exacerbation. Pt was initially on BiPAP, but then was able to maintain sats on NC, however, she continued having to work hard to breath and remained tachypneic. On 09/19, Dr. Mcdaniel made the decision to intubate her due to her impending respiratory failure. V/Q scan was considered, however pulm did not think this was necessary at this time. ABG pre-intubation: pH 7.24, pCO2 30.4, pO2 216.6 ABG post-intubation: pH 7.24, pCO2 28.8, pO2 248.1 ABG 09/21: pH 7.53, pCO2 27, pO2 84.5 ABG 09/22: pH 7.43, pCO2 33.9 pO2 80.2 Vent settings: SIMV rate 26, pressure support 14, FiO2 40%, PEEP 5 - Continue mechanical ventilation - On versed for sedation - Repeat CXR - Pulm has been consulted, appreciate recs NSTEMI trop 0.08->1.[address] depression in lateral leads. s/p 24 hours heparin gtt. - Dr. Dumont with cards was consulted and he recommended to stop heparin and start plavix and aspirin. Restart home beta nahum once pt no longer hypotensive. COPD Exacerbation Pt has hx of COPD, initial presentation consistent with exacerbation - plan per above - continue home tiotroprium Severe Aortic Stenosis Echo showed severe - Cards on board, appreciate recs. Consider possible procedure once pt more stable. HFrEF on chart review pt has systolic dysfunction, however EF 55-60% and diastolic function unable to be evaluated on this echo. CAD s/p stents - Pt on prasugrel at home, will give plavix while here in hospital - Cont aspirin - Will restart beta nahum once pt no longer hypotensive Hx of CVA - Pt on prasugrel at home, will give plavix while here in hospital - Cont aspirin CKDIV - stable, monitor kidney function - Avoid nephrotoxic agents - Consulted Dr. Rivers with nephrology, appreciate recs - Renal US showed no hydronephrosis DM2 Pt on 80 units insulin daily at home. Initially her glucose checks were in 200s- 400s, but since titrating lantus to 80 U daily, they have improved to 100s. She is currently NPO, but is getting steroids which is likely contributing to elevated blood sugars. - Continue lantus 80 units - Continue aggressive sliding scale - Hypoglycemia protocol Hypothyroidism Initial TSH WNL, repeat slightly low, but likely due to pt being acutely ill. - Cont home synthroid Hypokalemia Improved this AM after repleting - Will monitor NPO day 5 Prognosis: poor Lines/Tubes: R femoral CVC 09/17, Humphreys catheter 09/17, ET tube 09/19 VTE ppx: heparin ppx CODE: INTUBATION ONLY dispo: inpt, CCU Addendum - Attending - Attending Attestation Date/Time: 09/22/18 1221 I personally evaluated the patient and discussed the management with Dr. Stanley I agree with the History, Examination, Assessment and Plan documented above with any addition or exceptions noted below. Patient remains pressor dependant and intubated labs appear improved remain guarded prognosis however remains critically stable. Appreciate Management per Pulmonary/Critical care and Recs from Nephrology.
[2018-09-22 07:47] LABS: ALT (SGPT) 22 U/L (8-55); AST (SGOT) 39 U/L (5-34); Albumin 3.1 g/dL (3.4-4.8); Alkaline Phosphatase 22 U/L (40-150); Bilirubin, Direct 0.3 mg/dL (0.1-0.3); Bilirubin, Total 0.4 mg/dL (0.2-1.2); Protein, Total 5.8 g/dL (6.0-8.3)
[2018-09-22] MEDS: Aspirin 81 mg Enteric Coated Tablet PO SCH (08:43)
[2018-09-22] MEDS: Pantoprazole 40 MG VIAL IVP SCH (08:44)
[2018-09-22] MEDS: Digoxin 0.5 MG/2 ML AMP SLOW IVP SCH (08:44)
[2018-09-22] MEDS: Clopidogrel Bisulfate 75 MG TAB PO SCH (08:44)
[2018-09-22] MEDS: Heparin 5,000 UNITS/ML VIAL SC SCH ×3 (08:44→21:19)
--- NOTE | 2018-09-22 08:51 | RAD ---
PORTABLE CHEST: Date: 09/22/18 HISTORY: Dyspnea. CCU follow-up. COMPARISON: 09/21/18. FINDINGS/IMPRESSION: ET tube and NG tube remain in place. Cardiomegaly with vascular congestion again noted. Bibasilar inf iltrate or atelectasis. Not significantly changed from yesterday. POS: [facility]
[2018-09-22] MEDS: Insulin Glargine 80 UNITS in Pre-Filled Syringe 1 EACH SC SCH (09:10)
[2018-09-22] MEDS: Vancomycin HCl 750 MG in Sodium Chloride 0.9% 250 ML 250 ML IVPB SCH (11:26)
--- NOTE | 2018-09-22 12:08 | PRG ---
DATE OF SERVICE: 09/22/2018 SUBJECTIVE: A 63-year-old female being seen for acute kidney injury. The patient is intubated. OBJECTIVE: GENERAL: The patient is resting. VITAL SIGNS: Afebrile, pulse 84, breathing 16, blood pressure 92/67. GENERAL APPEARANCE AND MENTAL STATUS: Fair. HEAD/NECK: Normocephalic. Atraumatic. EYES: EOMI. No deformity. EARS: Clear. No ulcers. NOSE: Intact. No lesions. MOUTH: Clear. No discharge. THROAT: Clear. No exudate. LUNGS: Clear. No crackles. CARDIAC: S1, S2. No rub. ABDOMEN: Benign. Bowel sounds positive. GENITALIA/RECTUM: Humphreys absent. BACK/EXTREMITIES: Edema 0+. NEUROLOGICAL: Alert and motor intact. SKIN: LYMPHATICS: LABORATORY DATA: Reviewed. ASSESSMENT AND PLAN: 1. Chronic kidney disease, stage 4, stable. 2. Hypertension, stable. 3. Acute kidney injury, stable. 4. Hyponatremia. Continue free water. I will sign off on this patient. Please reconsult as needed. Job ID: [id number]
--- NOTE | 2018-09-22 13:27 | PRG ---
DATE OF SERVICE: 09/22/2018 SUBJECTIVE: Ms. Darnell's pressor requirements continue to decrease. Her ventilatory requirements are decreasing as well. OBJECTIVE: VITAL SIGNS: Today, blood pressure 107/91, heart rate is 97, and respiratory rates in the 30s. LUNGS: Clear anteriorly. HEART: Regular rhythm. ABDOMEN: Soft. LABORATORY DATA: White count 13.6, hemoglobin 8.2, platelets 164. Sodium 146, potassium 3.7, chloride 114, bicarb 22, BUN 29, creatinine 1.93. A pH 7.43, CO2 of 33, and pO2 of 80. IMPRESSION: 1. Respiratory failure. 2. Multifactorial, metabolic acidosis is improving. 3. Chronic obstructive pulmonary disease, improved. We will decrease her nebulizer treatments. 4. Respiratory failure, decrease her ventilatory support. 5. Acute on chronic kidney disease. 6. Obesity with deconditioning. 7. Mild hyperchloremia. PLAN: We would continue to keep her sedated, mechanically ventilator, and reassess her tomorrow for continued weaning. CRITICAL CARE TIME: 30 minutes. Job ID: [id number]
[2018-09-22] MEDS: fentaNYL Citrate/PF 2,000 MCG in Sodium Chloride 0.9% 60 ML IV SCH (14:04)
[2018-09-22] MEDS: Norepinephrine 16 MG in Dextrose 5% in Water 234 ML IVPB PRN (16:35)
[2018-09-22] MEDS: Vasopressin 40 UNIT, Admixture Fee 1 EACH in Sodium Chloride 0.9% 100 ML IV SCH (16:47)
[2018-09-22] MEDS: HumaLOG 300 UNITS/3 ML VIAL SC PRN (18:31)
[2018-09-23] MEDS: Sodium Chloride 0.45% 1,000 ML IV SCH ×2 (03:42→12:41)
[2018-09-23] MEDS: Levothyroxine Sodium 50 MCG TAB PO SCH (05:17)
[2018-09-23] MEDS: methylPREDNISolone Sod Succ 40 MG VIAL IVP SCH ×3 (05:17→18:45)
[2018-09-23] MEDS: HumaLOG 300 UNITS/3 ML VIAL SC PRN ×3 (05:18→19:17)
[2018-09-23 05:39] LABS: Anion Gap 15 mmol/L (10-20); BUN (Urea Nitrogen) 32 mg/dL (9.8-20.1); Calc. Creatinine Clearance 49 mL/min (70-130); Calcium 7.8 mg/dL (7.8-10.44); Carbon Dioxide 19 mmol/L (23-31); Chloride 112 mmol/L (98-107); Estimated GFR-MDRD 25; Glucose 186 mg/dL (80-115); Potassium 4.2 mmol/L (3.5-5.1); Sodium 142 mmol/L (136-145)
[2018-09-23 06:00] LABS: Band 8 % (5-11); Hemoglobin 7.6 g/dL (12.0-16.0); Lymphocytes 9 % (21-51); MDiff Complete? YES; Mean Corpuscular HGB CONC 33.7 g/dL (32.0-36.0); Mean Corpuscular Hemoglobin 33.5 pg (27.0-31.0); Mean Corpuscular Volume 99.4 fL (78.0-98.0); Mean Platelet Volume 7.2 fL (7.4-10.4); Monocytes 3 % (0-10); Myelocyte 1 % (0-0); Neutrophil 79 % (42-75); Platelet Count 164 thou/uL (130-400); RBC Distribution Width 13.6 % (11.5-14.5); Red Blood Cell (RBC) Count 2.27 mill/uL (4.20-5.40); White Blood Cell (WBC) Count 13.6 thou/uL (4.8-10.8)
[2018-09-23 06:28] LABS: Base Excess (BEa) -6.3 mEq/L (-2.0 to +3.0); Calcium, Ionized 1.09 mmol/L (1.12-1.30); Carboxyhemoglobin (COHb) 0.3 gm% (0.0-3.0); Hemoglobin (Hb) 9.3 g/dL (12.0-16.0); O2 Tension (PaO2) 76.3 mmHg (> 80.0); pH, Arterial 7.33 (7.35-7.45)
[2018-09-23 06:29] LABS: Puncture Site RRA
--- NOTE | 2018-09-23 07:56 | PDOC.FM ---
- Subjective Subjective: Patient remains comfortable on vent. She just had sedation turned off for a sedation vacation. She is arousable, but does not follow commands yet. - Objective MAR Reviewed: Yes Vital Signs & Weight: Vital Signs (12 hours) Temp Pulse Resp BP Pulse Ox 09/23/18 07:25 98.6 F 09/23/18 07:24 71 101/70 09/23/18 06:00 25 H 09/23/18 04:00 97.9 F 27 H 09/23/18 02:21 79 115/72 09/23/18 02:00 27 H 09/23/18 00:00 97.7 F 21 H 09/22/18 22:14 78 106/76 09/22/18 22:00 21 H 09/22/18 20:00 98.7 F 23 H 95 Weight Admit Weight 107 kg Weight 110.6 kg Most Recent Monitor Data Heart Rate from ECG 68 NIBP 101/70 NIBP BP-Mean 80 Respiration from ECG 18 SpO2 96 I&O: 09/22/18 09/23/18 09/24/18 06:59 06:59 06:59 Intake Total 4800.9 2729.7 Output Total 2825 2780 100 Balance 1975.9 -50.3 -100 Result Diagrams: 09/23/18 04:50 09/23/18 04:50 Phys Exam - Physical Examination Constitutional: NAD (on ventilator) HEENT: moist MMs, sclera anicteric Respiratory: no wheezing, no rales, no rhonchi, clear to auscultation bilateral Cardiovascular: RRR 4/6 systolic murmur Gastrointestinal: soft, non-tender, no distention, positive bowel sounds Musculoskeletal: pulses present hands edematous bilaterally, no edema in LE Skin: normal turgor, cap refill <2 seconds Dx/Plan (1) Septic shock Code(s): A41.9 - SEPSIS, UNSPECIFIED ORGANISM; R65.21 - SEVERE SEPSIS WITH SEPTIC SHOCK Status: Acute (2) NSTEMI (non-ST elevated myocardial infarction) Code(s): I21.4 - NON-ST ELEVATION (NSTEMI) MYOCARDIAL INFARCTION Status: Acute (3) CAP (community acquired pneumonia) Code(s): J18.9 - PNEUMONIA, UNSPECIFIED ORGANISM Status: Acute Qualifiers: Laterality: right Lung location: upper lobe of lung Qualified Code(s): J18.1 - Lobar pneumonia, unspecified organism (4) Acute respiratory failure with hypoxia Code(s): J96.01 - ACUTE RESPIRATORY FAILURE WITH HYPOXIA Status: Acute (5) COPD (chronic obstructive pulmonary disease) Status: Acute Qualifiers: COPD type: COPD with acute exacerbation Qualified Code(s): J44.1 - Chronic obstructive pulmonary disease with (acute) exacerbation (6) CKD (chronic kidney disease) Code(s): N18.9 - CHRONIC KIDNEY DISEASE, UNSPECIFIED Status: Acute Qualifiers: Chronic kidney disease stage: stage 4 (severe) Qualified Code(s): N18.4 - Chronic kidney disease, stage 4 (severe) (7) Diabetes mellitus Code(s): E11.9 - TYPE 2 DIABETES MELLITUS WITHOUT COMPLICATIONS Status: Acute Qualifiers: Diabetes mellitus type: type 2 Diabetes mellitus intermediate insulin use: with intermediate use Diabetes mellitus complication status: with kidney complications Diabetes mellitus complication detail: with chronic kidney disease Chronic kidney disease stage: stage 4 (severe) Qualified Code(s): E11.22 - Type 2 diabetes mellitus with diabetic chronic kidney disease; N18.4 - Chronic kidney disease, stage 4 (severe); Z79.4 - intermediate accountant (current) use of insulin (8) History of CVA (cerebrovascular accident) Code(s): Z86.73 - PRSNL HX OF TIA (TIA), AND CEREB INFRC W/O RESID DEFICITS Status: Acute (9) HTN (hypertension) Code(s): I10 - ESSENTIAL (PRIMARY) HYPERTENSION Status: Acute Qualifiers: Hypertension type: essential hypertension Qualified Code(s): I10 - Essential (primary) hypertension (10) HLD (hyperlipidemia) Code(s): E78.5 - HYPERLIPIDEMIA, UNSPECIFIED Status: Acute Qualifiers: Hyperlipidemia type: unspecified Qualified Code(s): E78.5 - Hyperlipidemia , unspecified (11) CAD (coronary artery disease) Code(s): I25.10 - ATHSCL HEART DISEASE OF [place] CORONARY ARTERY W/O ANG PCTRS Status: Acute Qualifiers: Coronary Disease-Associated Artery/Lesion type: [place] artery [place] vs. transplanted heart: [place] heart Associated angina: angina presence unspecified Qualified Code(s): I25.10 - Atherosclerotic heart disease of [place] coronary artery without angina pectoris (12) Aortic stenosis, severe Code(s): I35.0 - NONRHEUMATIC AORTIC (VALVE) STENOSIS Status: Acute - Plan Plan: Shock Likely septic 2/2 CAP. pt febrile and hypotensive on original presentation. CT showed interstitial opacities in R upper lobe and lingula. s/p 30mL/kg fluid bolus on admission and 2L NS boluses on 09/19. Procalcitonin 3.39->4.23->2.43, lactate 2.5->1. Blood Cx no growth at 48 hours. Pneumonia is not a clear source at this time, but there is not an alternative that has been found. Abd US showed distended gallbladder with wall thickening and mild pericholecystic fluid , but no stones or sludge. Per Dr. Mcdaniel, this would be unlikely to cause this degree of illness. - continue levophed, currently on 6. Continue vasopressin, currently on 0.04 - continue Vanc/Zosyn - Solumedrol, Thiamine. s/p 5 days of ascorbic acid Acute hypoxic respiratory failure Etiology likely mixed, pneumonia and/or COPD exacerbation. Pt was initially on BiPAP, but then was able to maintain sats on NC, however, she continued having to work hard to breath and remained tachypneic. On 09/19, Dr. Mcdaniel made the decision to intubate her due to her impending respiratory failure. V/Q scan was considered, however pulm did not think this was necessary at this time. ABG pre-intubation: pH 7.24, pCO2 30.4, pO2 216.6 ABG post-intubation: pH 7.24, pCO2 28.8, pO2 248.1 ABG 09/21: pH 7.53, pCO2 27, pO2 84.5 ABG 09/22: pH 7.43, pCO2 33.9 pO2 80.2 ABG 09/23: pH 7.33, pCO2 37, pO2 76 Vent settings: SIMV rate 20, pressure support 14, FiO2 40%, PEEP 5 - Continue mechanical ventilation - On versed and fentanyl for sedation, currently on sedation vacation - Repeat CXR - Pulm has been consulted, appreciate recs NSTEMI trop 0.08->1.[address] depression in lateral leads. s/p 24 hours heparin gtt. - Dr. Dumont with cards was consulted and he recommended to stop heparin and start plavix and aspirin. Restart home beta nahum once pt no longer hypotensive. COPD Exacerbation Pt has hx of COPD, initial presentation consistent with exacerbation - plan per above - continue home tiotroprium Severe Aortic Stenosis Echo showed severe - Cards on board, appreciate recs. Consider possible procedure once pt more stable. Macrocytic Anemia Pt with chronic anemia, baseline Hb 8-9. She has h/o CKD. Hb decreased to 7.6 this AM, was 10 on admission. -Will check iron studies, retic count, B12, RBC folate, peripheral smear -Continue to monitor HFrEF on chart review pt has systolic dysfunction, however EF 55-60% and diastolic function unable to be evaluated on this echo. CAD s/p stents - Pt on prasugrel at home, will give plavix while here in hospital - Cont aspirin - Will restart beta nahum once pt no longer hypotensive Hx of CVA - Pt on prasugrel at home, will give plavix while here in hospital - Cont aspirin CKDIV - stable, monitor kidney function - Avoid nephrotoxic agents - Consulted Dr. Rivers with nephrology, appreciate recs - Renal US showed no hydronephrosis DM2 Pt on 80 units insulin daily at home. Initially her glucose checks were in 200s- 400s, but since titrating lantus to 80 U daily, they have improved to 100s. She is currently NPO, but was getting D5W and is getting steroids which is likely contributing to elevated blood sugars. She is no longer on the D5W. Lantus was held yesterday and she only received 6U SSI and her glucose checks were in 170s- [id number]. - Will continue to hold lantus - Continue aggressive sliding scale - Hypoglycemia protocol Hypothyroidism Initial TSH WNL, repeat slightly low, but likely due to pt being acutely ill. - Cont home synthroid Hypokalemia, resolved - Will monitor NPO day 6 Prognosis: poor Lines/Tubes: R femoral CVC 09/17, Humphreys catheter 09/17, ET tube 09/19, OG tube 09/19 VTE ppx: heparin ppx GI ppx: Protonix CODE: INTUBATION ONLY dispo: inpt, CCU Addendum - Attending - Attending Attestation Date/Time: 09/23/18 1041 I personally evaluated the patient and discussed the management with Dr. Stanley I agree with the History, Examination, Assessment and Plan documented above with any addition or exceptions noted below. consider starting caloric supplementation appreciate pulmonary critical care recommendations. intermediate accountant prognosis remains guarded Spouse aware of patients status.
[2018-09-23 08:16] LABS: Reticulocyte Count 4.6 % (0.5-1.5)
--- NOTE | 2018-09-23 08:43 | RAD ---
SEMI UPRIGHT PORTABLE FRONTAL CHEST RADIOGRAPH: Date: 09-23-18 Comparison: 09-22-18 History: Ventilated patient. FINDINGS: Stable endotracheal tube and nasogastric tube. No pneumothorax seen. Right lung clear. There is persi stent nonspecific linear increased density in the medial left base with blunting of the left costophr enic angle. IMPRESSION: Stable appearance of the chest. POS: [facility]
[2018-09-23 08:44] LABS: Iron 81 ug/dL (50-170); Iron Binding Capacity, Total 224 mcg/dL (265-497)
[2018-09-23] MEDS: Piperacillin/Tazobactam 2.25 GM in Sodium Chloride 0.9% 100 ML IVPB SCH ×2 (08:50→16:53)
[2018-09-23] MEDS: Heparin 5,000 UNITS/ML VIAL SC SCH ×3 (08:57→21:53)
[2018-09-23] MEDS: Clopidogrel Bisulfate 75 MG TAB PO SCH (08:58)
[2018-09-23] MEDS: Digoxin 0.5 MG/2 ML AMP SLOW IVP SCH (08:58)
[2018-09-23] MEDS: Pantoprazole 40 MG VIAL IVP SCH (08:59)
[2018-09-23] MEDS: Aspirin Chewable 81 MG TAB PER TUBE SCH (08:59)
[2018-09-23] MEDS: Vasopressin 40 UNIT, Admixture Fee 1 EACH in Sodium Chloride 0.9% 100 ML IV SCH (10:25)
--- NOTE | 2018-09-23 10:45 | PDOC.EVN ---
Event Note - Event Note Event Note: Started pt on trickle tube feeds at rate of 15mL/hr. Pt still requires femoral central line due to pressor requirements on levophed and vasopressin. Pt was a difficult stick with multiple central line attempts while in the ED, so concern greater for complications with new central line attempt than continuing pt on femoral cvc.
[2018-09-23 10:59] LABS: Vancomycin, Trough 17.4 ug/mL
[2018-09-23 11:22] LABS: Ferritin 507.37 ng/mL (10-291)
[2018-09-23] MEDS: Vancomycin HCl 750 MG in Sodium Chloride 0.9% 250 ML 250 ML IVPB SCH (11:22)
[2018-09-23] MEDS ORDERED: Insulin Glargine 25 UNITS in Pre-Filled Syringe 1 EACH SC SCH (12:00)
[2018-09-23] MEDS: fentaNYL Citrate/PF 2,000 MCG in Sodium Chloride 0.9% 60 ML IV SCH (14:01)
--- NOTE | 2018-09-23 18:47 | PRG ---
DATE OF SERVICE: 09/23/2018 SUBJECTIVE: Jackie Darnell, still on low dose of Levophed. Heart rate is in the 90s. OBJECTIVE: VITAL SIGNS: Blood pressure is fluctuating between the 70s to low 100s, heart rate is in the 90s as mentioned, respiratory rate is in the 20s. LUNGS: Clear anteriorly. HEART: Regular rhythm. ABDOMEN: Soft. She still has no guarding. EXTREMITIES: Moves all when her sedation is decreased. DIAGNOSTIC DATA: Chest radiograph is unchanged. IMPRESSION: 1. Clinical sepsis/systemic inflammatory response syndrome with no clear source. 2. Anemia that is relatively stable. She has fluctuated between 7.6 and 8.0 in the last three days. 3. Mild hyperchloremic acidosis. 4. Chronic kidney disease that is relatively stable with a creatinine that has been between 2.15 and 1.93 in last three days. 5. Obesity. 6. Probable sleep apnea. 7. Respiratory failure, currently not weanable, but we are decreasing ventilatory support each day. 8. Chronic obstructive pulmonary disease with significant bronchospasm at the time of intubation. We will continue with current care plans and slow weaning from mechanical ventilation. Renal function appears stable. She is not heading toward dialysis at least at this point. Critical care time is 35 minutes. Job ID: [id number] MTDD
[2018-09-24] MEDS: Piperacillin/Tazobactam 2.25 GM in Sodium Chloride 0.9% 100 ML IVPB SCH ×3 (00:15→18:06)
[2018-09-24] MEDS: methylPREDNISolone Sod Succ 40 MG VIAL IVP SCH ×4 (00:16→18:06)
[2018-09-24] MEDS: Sodium Chloride 0.45% 1,000 ML IV SCH ×3 (00:17→21:30)
[2018-09-24] MEDS: HumaLOG 300 UNITS/3 ML VIAL SC PRN ×3 (00:31→18:44)
[2018-09-24] MEDS ORDERED: Norepinephrine 8 MG/0.9% NS 250 ML ONE (03:27)
[2018-09-24] MEDS: Vasopressin 40 UNIT, Admixture Fee 1 EACH in Sodium Chloride 0.9% 100 ML IV SCH (03:33)
[2018-09-24] MEDS: Levothyroxine Sodium 50 MCG TAB PO SCH (05:59)
[2018-09-24 06:19] LABS: Anion Gap 12 mmol/L (10-20); BUN (Urea Nitrogen) 36 mg/dL (9.8-20.1); Calc. Creatinine Clearance 48 mL/min (70-130); Calcium 7.5 mg/dL (7.8-10.44); Carbon Dioxide 20 mmol/L (23-31); Chloride 109 mmol/L (98-107); Estimated GFR-MDRD 24; Glucose 218 mg/dL (80-115); Potassium 4.1 mmol/L (3.5-5.1); Sodium 137 mmol/L (136-145)
[2018-09-24 06:27] LABS: Band 11 % (5-11); Hemoglobin 8.1 g/dL (12.0-16.0); Lymphocytes 7 % (21-51); MDiff Complete? YES; Mean Corpuscular Hemoglobin 33.6 pg (27.0-31.0); Mean Corpuscular Volume 98.8 fL (78.0-98.0); Mean Platelet Volume 6.9 fL (7.4-10.4); Monocytes 4 % (0-10); Myelocyte 1 % (0-0); Neutrophil 77 % (42-75); Nucleated RBC 2 % (0); Platelet Count 196 thou/uL (130-400); Platelet Morphology Comment Appears Adequate; Polychromasia SLIGHT = 2-3 cells (100X) (0-2/hpf); RBC Distribution Width 13.8 % (11.5-14.5); Red Blood Cell (RBC) Count 2.42 mill/uL (4.20-5.40); White Blood Cell (WBC) Count 18.5 thou/uL (4.8-10.8)
--- NOTE | 2018-09-24 06:59 | PDOC.FM ---
- Subjective Subjective: Patient resting comfortably this morning. Per nursing report, patient has been hypotensive overnight with increased need for vasopressor support. Levophed gtt has been titrated up to maintain appropriate MAPs. She continues to be afebrile. - Objective MAR Reviewed: Yes Vital Signs & Weight: Vital Signs (12 hours) Temp Pulse Resp Pulse Ox 09/24/18 04:00 98.8 F 20 09/24/18 02:32 85 09/24/18 02:31 85 19 100 09/24/18 02:00 20 09/24/18 00:00 98.7 F 19 09/23/18 22:46 88 18 99 09/23/18 22:00 19 09/23/18 20:00 98.7 F 22 H 100 Weight Admit Weight 107 kg Weight 110.6 kg Most Recent Monitor Data Heart Rate from ECG 86 NIBP 79/57 NIBP BP-Mean 64 Respiration from ECG 18 SpO2 100 I&O: 09/22/18 09/23/18 09/24/18 06:59 06:59 06:59 Intake Total 4800.9 2729.7 2373.6 Output Total 2825 2780 1905 Balance 1975.9 -50.3 468.6 Result Diagrams: 09/24/18 05:40 09/24/18 05:40 Phys Exam - Physical Examination Constitutional: NAD (on mechanical ventilation) HEENT: moist MMs Respiratory: no wheezing, no rales, no rhonchi Cardiovascular: RRR (systolic murmur) Gastrointestinal: soft, non-tender, positive bowel sounds Skin: normal turgor, cap refill <2 seconds Dx/Plan (1) Septic shock Code(s): A41.9 - SEPSIS, UNSPECIFIED ORGANISM; R65.21 - SEVERE SEPSIS WITH SEPTIC SHOCK Status: Acute Plan: Patient with unknown source, but likely respiratory given her comorbidities. She continues to need pressor support with levophed and vasopressin. Increased need for levophed overnight, titrated up to 10 to maintain MAPs. Trickle tube feeds have been initiated. No residuals per nursing staff. Vancomycin trough from 09/23 is within therapeutic range. Outside of hypotension, her vitals signs and lab values have remained stable overnight. ABG pending. (2) Acute respiratory failure with hypoxia Code(s): J96.01 - ACUTE RESPIRATORY FAILURE WITH HYPOXIA Status: Acute Plan: Sedation holiday was attempted yesterday. Pulmonology has recommeded a slow wean from mechanical ventilation. ABG on 09/23 showed improvement from prior days, awaiting todays ABG. Sedation managed by Pulm, Versed and Fentanyl (3) NSTEMI (non-ST elevated myocardial infarction) Code(s): I21.4 - NON-ST ELEVATION (NSTEMI) MYOCARDIAL INFARCTION Status: Acute Plan: Patient has been evaluated by Cardiology and recommend anti-platelet therapy once stable (4) CAP (community acquired pneumonia) Code(s): J18.9 - PNEUMONIA, UNSPECIFIED ORGANISM Status: Acute Qualifiers: Laterality: right Lung location: upper lobe of lung Qualified Code(s): J18.1 - Lobar pneumonia, unspecified organism Plan: Continue Vanc and Zosyn. Day 8 of abx. Vanc trough therapeutic (5) CKD (chronic kidney disease) Code(s): N18.9 - CHRONIC KIDNEY DISEASE, UNSPECIFIED Status: Acute Qualifiers: Chronic kidney disease stage: stage 4 (severe) Qualified Code(s): N18.4 - Chronic kidney disease, stage 4 (severe) Plan: Patient has been evaluated by Nephrology who recommend no intervention at this time. Creatinine of 2 this morning. Appropriate urine output overnight (6) COPD (chronic obstructive pulmonary disease) Status: Acute Qualifiers: COPD type: COPD with acute exacerbation Qualified Code(s): J44.1 - Chronic obstructive pulmonary disease with (acute) exacerbation Plan: Likely contributing to respiratory failure. Continue home medications and wean vent per Pulm (7) Diabetes mellitus Code(s): E11.9 - TYPE 2 DIABETES MELLITUS WITHOUT COMPLICATIONS Status: Acute Qualifiers: Diabetes mellitus type: type 2 Diabetes mellitus fci insulin use: with long chain beamer use Diabetes mellitus complication status: with kidney complications Diabetes mellitus complication detail: with chronic kidney disease Chronic kidney disease stage: stage 4 (severe) Qualified Code(s): E11.22 - Type 2 diabetes mellitus with diabetic chronic kidney disease; N18.4 - Chronic kidney disease, stage 4 (severe); Z79.4 - [facility] (current) use of insulin Plan: With tube feeds and steroids, blood glucose elevated yesterday. Patient given Lantus 25u yesterday morning and needed 12u of SSI throughout the day yesterday. Plan to titrate up basal dose given initiation of feeds. (8) HLD (hyperlipidemia) Code(s): E78.5 - HYPERLIPIDEMIA, UNSPECIFIED Status: Acute Qualifiers: Hyperlipidemia type: unspecified Qualified Code(s): E78.5 - Hyperlipidemia , unspecified (9) HTN (hypertension) Code(s): I10 - ESSENTIAL (PRIMARY) HYPERTENSION Status: Acute Qualifiers: Hypertension type: essential hypertension Qualified Code(s): I10 - Essential (primary) hypertension (10) History of CVA (cerebrovascular accident) Code(s): Z86.73 - PRSNL HX OF TIA (TIA), AND CEREB INFRC W/O RESID DEFICITS Status: Acute (11) Aortic stenosis, severe Code(s): I35.0 - NONRHEUMATIC AORTIC (VALVE) STENOSIS Status: Acute (12) CAD (coronary artery disease) Code(s): I25.10 - ATHSCL HEART DISEASE OF [place] CORONARY ARTERY W/O ANG PCTRS Status: Acute Qualifiers: Coronary Disease-Associated Artery/Lesion type: [place] artery [place] vs. transplanted heart: [place] heart Associated angina: angina presence unspecified Qualified Code(s): I25.10 - Atherosclerotic heart disease of [place] coronary artery without angina pectoris (13) CHF (congestive heart failure) Code(s): I50.9 - HEART FAILURE, UNSPECIFIED Status: Acute Qualifiers: Heart failure type: systolic Heart failure chronicity: chronic Qualified Code(s): I50.22 - Chronic systolic (congestive) heart failure - Plan Plan: -wean mechanical ventilation per Pulmonology -titrate insulin requirements with initiation of tube feeds -continue pressor support to maintain appropriate MAPs -continue antibiotics and steroids Addendum - Attending - Attending Attestation Date/Time: 09/24/18 8790 I personally evaluated the patient and discussed the management with Dr. Arreola. I agree with the History, Examination, Assessment and Plan documented above with any addition or exceptions noted below. Patient is overall stable, but continues to be critically ill. Pressers increased mildly overnight to maintain MAP, but she continues to make adequate UOP. Other vitals stable and has been afebrile. Labs pending this morning. Her PCT has been downtrending signifying that her bacterial infection that we have been unable to capture is being treated. Continue broad spectrum abx and wean pressers as tolerated. Further changes to mgmt will depend on daily lab results and Pulm recs. Lung exam course, likely some COPD still contributing to her health status.
[2018-09-24 07:06] LABS: Actual Bicarbonate (HCO3a) 16.8 mEq/L (22-28); Analyzer IN Cardio ER; Base Excess (BEa) -7.9 mEq/L (-2.0 to +3.0); CO2 Tension 32.3 mmHg (35.0-45.0); Calcium, Ionized 1.06 mmol/L (1.12-1.30); Carboxyhemoglobin (COHb) 0.5 gm% (0.0-3.0); Hemoglobin (Hb) 14.4 g/dL (12.0-16.0); O2 Tension (PaO2) 126.5 mmHg (> 80.0); Potassium - ABG Lab 4.13 mmol/L (3.70-5.30); pH, Arterial 7.33 (7.35-7.45)
[2018-09-24 07:21] LABS: Puncture Site RRA
[2018-09-24 07:22] LABS: ALV-art Gradient 118.325 (0-20)
[2018-09-24] MEDS: Heparin 5,000 UNITS/ML VIAL SC SCH ×3 (08:51→21:26)
[2018-09-24] MEDS: Digoxin 0.5 MG/2 ML AMP SLOW IVP SCH (08:51)
[2018-09-24] MEDS: Clopidogrel Bisulfate 75 MG TAB PO SCH (08:51)
[2018-09-24] MEDS: Aspirin Chewable 81 MG TAB PER TUBE SCH (08:52)
[2018-09-24] MEDS: Thiamine 100 MG TAB PER TUBE SCH (08:52)
[2018-09-24] MEDS: Pantoprazole 40 MG VIAL IVP SCH (08:53)
[2018-09-24] MEDS ORDERED: Insulin Glargine 25 UNITS in Pre-Filled Syringe 1 EACH SC SCH (09:00)
--- NOTE | 2018-09-24 09:36 | RAD ---
PORTABLE CHEST: Date: 09/24/18 HISTORY: CCU follow-up. Dyspnea. COMPARISON: 09/23/18. FINDINGS/IMPRESSION: Cardiomegaly. ET tube and NG tube remain in place. Mild vascular engorgement. Small effusions and bib asilar atelectasis. No acute change from yesterday. POS: [facility]
[2018-09-24] MEDS: Insulin Glargine 30 UNITS in Pre-Filled Syringe 1 EACH SC SCH (09:58)
[2018-09-24] MEDS: Vancomycin HCl 750 MG in Sodium Chloride 0.9% 250 ML 250 ML IVPB SCH (10:02)
[2018-09-24] MEDS: Norepinephrine 16 MG in Dextrose 5% in Water 234 ML IVPB PRN (18:21)
--- NOTE | 2018-09-24 22:30 | PRG ---
DATE OF SERVICE: 09/24/2018 SUBJECTIVE: Ms. Darnell was still on Levophed this morning. It really did not make sense that she should still be on Levophed. I wonder about subclavian stenosis in both sides, but that is fairly uncommon. We did take a blood pressure in her leg and blood pressure in leg was over 135 in her calf is systolic. I thought that the best thing would be to place an arterial line in her groin and see what her pressure was. I prepped her left groin with chlorhexidine and Betadine. A 5-[place] catheter was used to localize the femoral artery. I was able to get into the femoral artery, and there was excellent blood flow out of the arterial needle down to her knee, but when I entered artery, I can tell it was heavily calcified. The wire would not go up the femoral artery. I could feel it rubbing on plaque. I tried multiple times to advance the wire in all ways with good blood return, removing the wire, but I was unable to pass wire. I felt it was best to discontinue the procedure to avoid some type of embolic phenomenon potential for occlusion of the femoral artery with thrombus, so I removed the needle and pressure was held for 10 to 15 minutes. I suspect that we are not getting accurate readings from her arms. We will titrate her leg pressure and see if we can get her off Levophed as long as her renal function continues as long as on the sedation holiday, she continues to mentate. Lungs remain clear, although today she had a longer expiratory phase than she had yesterday. Heart, regular rhythm. Abdomen is soft and nontender. LABORATORY DATA: White count 18.5, hemoglobin 8.1, and platelets 196. Sodium 137, potassium 4.1, chloride 109, bicarb 20, BUN 36, and creatinine 2.05. Creatinine is 2.01 yesterday. IMPRESSION: 1. Respiratory failure. 2. ? Spurious blood pressure readings in her arms. I talked to the press technician about doing arterial ultrasounds of her subclavians, but because of her size that the chances of this being accurate may be limited severely. Magnetic resonance imaging is not a good option at this point in time. 3. For chronic obstructive pulmonary disease, clinically appears to be preventing weaning from mechanical ventilation at this time. We are not having gas exchange issues. Her pH is 7.33, pCO2 32, and PO2 of 126. She still has metabolic acidosis that I think is in part driven by her renal function and in part driven by her relative hyperchloremia. We will continue to follow. CRITICAL CARE TIME: 30 minutes. Job ID: [id number]
[2018-09-24] MEDS: fentaNYL Citrate/PF 2,000 MCG in Sodium Chloride 0.9% 60 ML IV SCH (23:04)
[2018-09-25] MEDS: methylPREDNISolone Sod Succ 40 MG VIAL IVP SCH ×4 (00:15→21:45)
[2018-09-25] MEDS: HumaLOG 300 UNITS/3 ML VIAL SC PRN ×3 (00:15→14:14)
[2018-09-25] MEDS: Piperacillin/Tazobactam 2.25 GM in Sodium Chloride 0.9% 100 ML IVPB SCH ×4 (00:15→23:51)
[2018-09-25 05:10] LABS: Anion Gap 13 mmol/L (10-20); BUN (Urea Nitrogen) 40 mg/dL (9.8-20.1); Calc. Creatinine Clearance 47 mL/min (70-130); Calcium 6.9 mg/dL (7.8-10.44); Carbon Dioxide 19 mmol/L (23-31); Chloride 111 mmol/L (98-107); Estimated GFR-MDRD 24; Glucose 174 mg/dL (80-115); Potassium 4.2 mmol/L (3.5-5.1); Sodium 139 mmol/L (136-145)
[2018-09-25] MEDS: Levothyroxine Sodium 50 MCG TAB PO SCH (06:41)
[2018-09-25] MEDS: Sodium Chloride 0.45% 1,000 ML IV SCH ×2 (06:41→16:37)
[2018-09-25 06:54] LABS: Band 11 % (5-11); Hemoglobin 6.2 g/dL (12.0-16.0); Lymphocytes 8 % (21-51); MDiff Complete? YES; Mean Corpuscular HGB CONC 33.7 g/dL (32.0-36.0); Mean Corpuscular Hemoglobin 33.6 pg (27.0-31.0); Mean Corpuscular Volume 99.7 fL (78.0-98.0); Mean Platelet Volume 7.4 fL (7.4-10.4); Metamyelocyte 1 % (0-0); Neutrophil 80 % (42-75); Nucleated RBC 1 % (0); Platelet Count 102 thou/uL (130-400); Platelet Morphology Comment Appears Decreased; RBC Distribution Width 13.7 % (11.5-14.5); Red Blood Cell (RBC) Count 1.84 mill/uL (4.20-5.40); White Blood Cell (WBC) Count 5.8 thou/uL (4.8-10.8)
[2018-09-25 06:57] LABS: Actual Bicarbonate (HCO3a) 17.2 mEq/L (22-28); Analyzer IN Cardio ER; Base Excess (BEa) -8.3 mEq/L (-2.0 to +3.0); CO2 Tension 35.1 mmHg (35.0-45.0); Calcium, Ionized 1.01 mmol/L (1.12-1.30); Carboxyhemoglobin (COHb) 0.3 gm% (0.0-3.0); Hemoglobin (Hb) 8.5 g/dL (12.0-16.0); O2 Tension (PaO2) 159.7 mmHg (> 80.0); Potassium - ABG Lab 4.22 mmol/L (3.70-5.30); pH, Arterial 7.31 (7.35-7.45)
[2018-09-25 06:59] LABS: ALV-art Gradient 81.625 (0-20); Puncture Site RRA
--- NOTE | 2018-09-25 07:42 | PDOC.FM ---
- Subjective Subjective: Patient intubated and sedated this morning. A sedation holiday was attempted overnight that resulted in tachycardia and tachypnea. She was placed back on fentanyl sedation per protocol. No other issues overnight according to nursing staff. She has remained afebrile. - Objective MAR Reviewed: Yes Vital Signs & Weight: Vital Signs (12 hours) Temp Pulse Resp BP Pulse Ox 09/25/18 07:26 83 100/49 L 09/25/18 06:00 19 09/25/18 04:55 113 H 09/25/18 04:00 98.0 F 17 09/25/18 02:06 85 19 100 09/25/18 02:00 23 H 09/25/18 00:57 87 09/25/18 00:00 97.8 F 22 H 09/24/18 22:29 87 15 100 09/24/18 20:00 16 100 Weight Admit Weight 107 kg Weight 110.6 kg Most Recent Monitor Data Heart Rate from ECG 88 NIBP 98/57 NIBP BP-Mean 70 Respiration from ECG 22 SpO2 100 I&O: 09/24/18 09/25/18 09/26/18 06:59 06:59 06:59 Intake Total 4178.9 3796.4 Output Total 2105 2063 Balance 2073.9 1733.4 Result Diagrams: 09/25/18 04:31 09/25/18 04:31 Phys Exam - Physical Examination Constitutional: NAD (intubated and sedated) HEENT: moist MMs scattered rhonchi Cardiovascular: RRR Gastrointestinal: no distention, positive bowel sounds Skin: normal turgor, cap refill <2 seconds Dx/Plan (1) Septic shock Code(s): A41.9 - SEPSIS, UNSPECIFIED ORGANISM; R65.21 - SEVERE SEPSIS WITH SEPTIC SHOCK Status: Acute Plan: Patient with unknown source, but likely respiratory given her comorbidities. It is suspected that we are not getting accurate reads on her blood pressure. Arterial line placement was attempted yesterday, but was unsuccessful due to suspected plaques/calcifications. It has since come to light that she had a AAA repair and has extensive vascular disease. We will be moving her BP monitoring site to her lower extremities. She has been weaned off of levophed overnight and continues to do well. Trickle tube feeds have been initiated. No residuals per nursing staff. Vancomycin trough from 09/23 is within therapeutic range. (2) Acute respiratory failure with hypoxia Code(s): J96.01 - ACUTE RESPIRATORY FAILURE WITH HYPOXIA Status: Acute Plan: Sedation holiday was attempted yesterday. Pulmonology has recommeded a slow wean from mechanical ventilation. ABG on 09/23 showed improvement from prior days, awaiting todays ABG. Sedation managed by Pulm, Versed and Fentanyl (3) NSTEMI (non-ST elevated myocardial infarction) Code(s): I21.4 - NON-ST ELEVATION (NSTEMI) MYOCARDIAL INFARCTION Status: Acute Plan: Patient has been evaluated by Cardiology and recommend anti-platelet therapy once stable (4) CAP (community acquired pneumonia) Code(s): J18.9 - PNEUMONIA, UNSPECIFIED ORGANISM Status: Acute Qualifiers: Laterality: right Lung location: upper lobe of lung Qualified Code(s): J18.1 - Lobar pneumonia, unspecified organism Plan: Continue Vanc and Zosyn. Day 9 of abx. Vanc trough therapeutic (5) CKD (chronic kidney disease) Code(s): N18.9 - CHRONIC KIDNEY DISEASE, UNSPECIFIED Status: Acute Qualifiers: Chronic kidney disease stage: stage 4 (severe) Qualified Code(s): N18.4 - Chronic kidney disease, stage 4 (severe) Plan: Patient has been evaluated by Nephrology who recommend no intervention at this time. Appropriate urine output overnight (6) COPD (chronic obstructive pulmonary disease) Status: Acute Qualifiers: COPD type: COPD with acute exacerbation Qualified Code(s): J44.1 - Chronic obstructive pulmonary disease with (acute) exacerbation Plan: Likely contributing to respiratory failure. Continue home medications and wean vent per Pulm (7) Diabetes mellitus Code(s): E11.9 - TYPE 2 DIABETES MELLITUS WITHOUT COMPLICATIONS Status: Acute Qualifiers: Diabetes mellitus type: type 2 Diabetes mellitus correction insulin use: with correction use Diabetes mellitus complication status: with kidney complications Diabetes mellitus complication detail: with chronic kidney disease Chronic kidney disease stage: stage 4 (severe) Qualified Code(s): E11.22 - Type 2 diabetes mellitus with diabetic chronic kidney disease; N18.4 - Chronic kidney disease, stage 4 (severe); Z79.4 - long term care administrator (current) use of insulin Plan: With tube feeds and steroids, blood glucose elevated yesterday. Patients Lantus titrated to 30u yesterday morning and needed 12u of SSI throughout the day yesterday. Plan to titrate up basal dose again (8) HLD (hyperlipidemia) Code(s): E78.5 - HYPERLIPIDEMIA, UNSPECIFIED Status: Acute Qualifiers: Hyperlipidemia type: unspecified Qualified Code(s): E78.5 - Hyperlipidemia , unspecified (9) HTN (hypertension) Code(s): I10 - ESSENTIAL (PRIMARY) HYPERTENSION Status: Acute Qualifiers: Hypertension type: essential hypertension Qualified Code(s): I10 - Essential (primary) hypertension (10) History of CVA (cerebrovascular accident) Code(s): Z86.73 - PRSNL HX OF TIA (TIA), AND CEREB INFRC W/O RESID DEFICITS Status: Acute (11) Aortic stenosis, severe Code(s): I35.0 - NONRHEUMATIC AORTIC (VALVE) STENOSIS Status: Acute (12) CAD (coronary artery disease) Code(s): I25.10 - ATHSCL HEART DISEASE OF [place] CORONARY ARTERY W/O ANG PCTRS Status: Acute Qualifiers: Coronary Disease-Associated Artery/Lesion type: [place] artery [place] vs. transplanted heart: [place] heart Associated angina: angina presence unspecified Qualified Code(s): I25.10 - Atherosclerotic heart disease of [place] coronary artery without angina pectoris (13) CHF (congestive heart failure) Code(s): I50.9 - HEART FAILURE, UNSPECIFIED Status: Acute Qualifiers: Heart failure type: systolic Heart failure chronicity: chronic Qualified Code(s): I50.22 - Chronic systolic (congestive) heart failure - Plan Plan: -wean mechanical ventilation per Pulmonology -titrate insulin requirements -anticipate possible weaning of vasopressin given new BP readings -continue antibiotics and steroids Addendum - Attending - Attending Attestation Date/Time: 09/25/18 [id number] I personally evaluated the patient and discussed the management with Dr. Arreola. I agree with the History, Examination, Assessment and Plan documented above with any addition or exceptions noted below. Patient continues to be critically ill but overall stable. Continues to wean down off Levophed and Vasopression as we suspect her UE BP measurements may not be correct. Adequate UOP. Labs overall stable. She continues on broad spectrum abx and PCT reassuring. Vent mgmt per Pulm, she continues to have diffuse wheezing and rhonchi on exam. Continue TF.
[2018-09-25] MEDS: Insulin Glargine 30 UNITS in Pre-Filled Syringe 1 EACH SC SCH (09:20)
[2018-09-25] MEDS: Pantoprazole 40 MG VIAL IVP SCH (09:21)
[2018-09-25] MEDS: Digoxin 0.5 MG/2 ML AMP SLOW IVP SCH (09:21)
[2018-09-25] MEDS: Aspirin Chewable 81 MG TAB PER TUBE SCH (09:22)
[2018-09-25] MEDS: Clopidogrel Bisulfate 75 MG TAB PO SCH (09:22)
[2018-09-25] MEDS: Heparin 5,000 UNITS/ML VIAL SC SCH ×4 (09:22→20:47)
[2018-09-25] MEDS: Thiamine 100 MG TAB PER TUBE SCH (09:22)
--- NOTE | 2018-09-25 09:23 | RAD ---
CHEST 1 VIEW: Date: 09/25/18 HISTORY: Respiratory insufficiency. COMPARISON: 09/24/18. FINDINGS: NG tube is in place. Endotracheal tube remains with the tip at the level of the molly. Cardiomegaly with bilateral vascular congestion, overall stable. IMPRESSION: Overall stable chest. Endotracheal tube with tip at level of the molly. POS: [facility]
[2018-09-25 10:40] LABS: Hemoglobin 6.2 g/dL (12.0-16.0)
[2018-09-25 10:53] LABS: Vancomycin, Trough 21.6 ug/mL
--- NOTE | 2018-09-25 15:25 | PRG ---
DATE OF SERVICE: 09/25/2018 SUBJECTIVE: Jackie Darnell remains sedated from mechanical ventilation. OBJECTIVE: VITAL SIGNS: Heart rate is 93, blood pressure is 91/55, and respiratory rate is 21. We are measuring her blood pressures in her legs. She is off pressors. LUNGS: Clear. HEART: Regular rhythm. S1 and S2 are normal. ABDOMEN: Soft and nontender. LABORATORY DATA: Hemoglobin was 6.2 this morning and on repeat it was 6.2, on the blood gases it was 8. Electrolytes are unremarkable. Creatinine is 2.1. She needs to be transfused. She is currently not weanable from mechanical ventilation. IMPRESSION AND PLAN: Status post . I believe her upper extremity blood pressure readings are not indicative of a true core blood pressure. She has horrible calcific vascular disease based on my attempt to put in a femoral arterial line in. Her showed up today and says that everybody in her family has with horrible peripheral vascular disease. At this point in time, chronic obstructive pulmonary disease prevents weaning from mechanical ventilation. We will continue supportive care. We will try to get arterial Dopplers of her upper extremities and see if we can determine what her subclavian flow is and whether or not there is an obstruction. Her obesity may interfere with this test. CRITICAL CARE TIME: 30 minutes. Job ID: [id number]
[2018-09-25 19:32] LABS: Hemoglobin 7.7 g/dL (12.0-16.0); Mean Corpuscular Hemoglobin 31.7 pg (27.0-31.0); Mean Platelet Volume 7.3 fL (7.4-10.4); Platelet Count 98 thou/uL (130-400); RBC Distribution Width 15.9 % (11.5-14.5); Red Blood Cell (RBC) Count 2.43 mill/uL (4.20-5.40); White Blood Cell (WBC) Count 8.1 thou/uL (4.8-10.8)
[2018-09-26 05:51] LABS: Anion Gap 13 mmol/L (10-20); BUN (Urea Nitrogen) 44 mg/dL (9.8-20.1); Calc. Creatinine Clearance 43 mL/min (70-130); Calcium 6.8 mg/dL (7.8-10.44); Carbon Dioxide 18 mmol/L (23-31); Chloride 110 mmol/L (98-107); Estimated GFR-MDRD 22; Glucose 163 mg/dL (80-115); Potassium 4.1 mmol/L (3.5-5.1); Sodium 137 mmol/L (136-145)
[2018-09-26 05:57] LABS: Band 12 % (5-11); Hemoglobin 7.6 g/dL (12.0-16.0); Lymphocytes 5 % (21-51); MDiff Complete? YES; Mean Corpuscular HGB CONC 33.5 g/dL (32.0-36.0); Mean Corpuscular Hemoglobin 32.3 pg (27.0-31.0); Mean Corpuscular Volume 96.3 fL (78.0-98.0); Mean Platelet Volume 8.1 fL (7.4-10.4); Monocytes 2 % (0-10); Neutrophil 81 % (42-75); Platelet Count 87 thou/uL (130-400); Platelet Morphology Comment Appears Decreased; RBC Distribution Width 16.6 % (11.5-14.5); Red Blood Cell (RBC) Count 2.36 mill/uL (4.20-5.40); White Blood Cell (WBC) Count 9.1 thou/uL (4.8-10.8)
[2018-09-26] MEDS: Levothyroxine Sodium 50 MCG TAB PO SCH (06:36)
[2018-09-26] MEDS: methylPREDNISolone Sod Succ 40 MG VIAL IVP SCH ×3 (06:37→21:42)
--- NOTE | 2018-09-26 06:50 | PDOC.FM ---
- Subjective Subjective: Patient resting comfortably, sedated on the ventilator. Responsive to loud sound and touch. - Objective MAR Reviewed: Yes Vital Signs & Weight: Vital Signs (12 hours) Temp Pulse Resp Pulse Ox 09/26/18 04:00 98.2 F 20 09/26/18 02:17 92 21 H 99 09/26/18 02:00 20 09/26/18 00:00 98.4 F 20 09/25/18 22:12 92 22 H 100 09/25/18 22:09 90 09/25/18 22:00 21 H 09/25/18 20:00 23 H 09/25/18 19:00 98.1 F 09/25/18 18:50 100 Weight Admit Weight 107 kg Weight 110.6 kg Most Recent Monitor Data Heart Rate from ECG 96 NIBP 102/68 NIBP BP-Mean 79 Respiration from ECG 22 SpO2 100 I&O: 09/24/18 09/25/18 09/26/18 06:59 06:59 06:59 Intake Total 4178.9 3796.4 2197.6 Output Total 2105 2063 1720 Balance 2073.9 1733.4 477.6 Result Diagrams: 09/26/18 05:10 09/26/18 05:10 Phys Exam - Physical Examination Constitutional: NAD (resting comfortably, sedated on the ventilator) HEENT: moist MMs, sclera anicteric rales in all lung [place], mechanically ventilated Cardiovascular: RRR, no rub 4/6 systolic murmur Gastrointestinal: soft, non-tender, no distention hypoactive bowel sounds trace pedal edema and edema in bilateral arms sedated, responsive to loud sound and touch Deviation from normal: bruising where lab draws have been Dx/Plan (1) Septic shock Code(s): A41.9 - SEPSIS, UNSPECIFIED ORGANISM; R65.21 - SEVERE SEPSIS WITH SEPTIC SHOCK Status: Acute (2) NSTEMI (non-ST elevated myocardial infarction) Code(s): I21.4 - NON-ST ELEVATION (NSTEMI) MYOCARDIAL INFARCTION Status: Acute (3) CAP (community acquired pneumonia) Code(s): J18.9 - PNEUMONIA, UNSPECIFIED ORGANISM Status: Acute Qualifiers: Laterality: right Lung location: upper lobe of lung Qualified Code(s): J18.1 - Lobar pneumonia, unspecified organism (4) Acute respiratory failure with hypoxia Code(s): J96.01 - ACUTE RESPIRATORY FAILURE WITH HYPOXIA Status: Acute (5) COPD (chronic obstructive pulmonary disease) Status: Acute Qualifiers: COPD type: COPD with acute exacerbation Qualified Code(s): J44.1 - Chronic obstructive pulmonary disease with (acute) exacerbation (6) CKD (chronic kidney disease) Code(s): N18.9 - CHRONIC KIDNEY DISEASE, UNSPECIFIED Status: Acute Qualifiers: Chronic kidney disease stage: stage 4 (severe) Qualified Code(s): N18.4 - Chronic kidney disease, stage 4 (severe) (7) Diabetes mellitus Code(s): E11.9 - TYPE 2 DIABETES MELLITUS WITHOUT COMPLICATIONS Status: Acute Qualifiers: Diabetes mellitus type: type 2 Diabetes mellitus filter tip inspector insulin use: with intermediate use Diabetes mellitus complication status: with kidney complications Diabetes mellitus complication detail: with chronic kidney disease Chronic kidney disease stage: stage 4 (severe) Qualified Code(s): E11.22 - Type 2 diabetes mellitus with diabetic chronic kidney disease; N18.4 - Chronic kidney disease, stage 4 (severe); Z79.4 - long term acute care registered nurse (current) use of insulin (8) History of CVA (cerebrovascular accident) Code(s): Z86.73 - PRSNL HX OF TIA (TIA), AND CEREB INFRC W/O RESID DEFICITS Status: Acute (9) HTN (hypertension) Code(s): I10 - ESSENTIAL (PRIMARY) HYPERTENSION Status: Acute Qualifiers: Hypertension type: essential hypertension Qualified Code(s): I10 - Essential (primary) hypertension (10) HLD (hyperlipidemia) Code(s): E78.5 - HYPERLIPIDEMIA, UNSPECIFIED Status: Acute Qualifiers: Hyperlipidemia type: unspecified Qualified Code(s): E78.5 - Hyperlipidemia , unspecified (11) CAD (coronary artery disease) Code(s): I25.10 - ATHSCL HEART DISEASE OF [place] CORONARY ARTERY W/O ANG PCTRS Status: Acute Qualifiers: Coronary Disease-Associated Artery/Lesion type: [place] artery [place] vs. transplanted heart: [place] heart Associated angina: angina presence unspecified Qualified Code(s): I25.10 - Atherosclerotic heart disease of [place] coronary artery without angina pectoris (12) Aortic stenosis, severe Code(s): I35.0 - NONRHEUMATIC AORTIC (VALVE) STENOSIS Status: Acute (13) Heparin induced thrombocytopenia Code(s): D75.82 - HEPARIN INDUCED THROMBOCYTOPENIA (HIT) Status: Suspected - Plan Plan: Shock Likely septic 2/2 CAP. pt febrile and hypotensive on original presentation. CT showed interstitial opacities in R upper lobe and lingula. s/p 30mL/kg fluid bolus on admission and 2L NS boluses on 09/19. Procalcitonin 3.39->4.23->2.43, lactate 2.5->1. Blood Cx no growth at 48 hours. Pneumonia is not a clear source at this time, but there is not an alternative that has been found. Abd US showed distended gallbladder with wall thickening and mild pericholecystic fluid , but no stones or sludge. Per Dr. Mcdaniel, this would be unlikely to cause this degree of illness. - Pt off pressors over the weekend. Discrepancy between UE and LE BP's, so have switched to leg BP's. - Upper extremity arterial doppler - continue Zosyn, s/p vanc. Will consider de-escalation today - Solumedrol, Thiamine. s/p 5 days of ascorbic acid Acute hypoxic respiratory failure Etiology likely mixed, pneumonia and/or COPD exacerbation. Pt was initially on BiPAP, but then was able to maintain sats on NC, however, she continued having to work hard to breath and remained tachypneic. On 09/19, Dr. Mcdaniel made the decision to intubate her due to her impending respiratory failure. V/Q scan was considered, however pulm did not think this was necessary at this time. ABG 09/26: pending Vent settings: SIMV rate 14, pressure support 14, FiO2 40%, PEEP 5 - Continue mechanical ventilation - On versed and fentanyl for sedation - Repeat CXR - Pulm has been consulted, appreciate recs NSTEMI trop 0.08->1.[address] depression in lateral leads. s/p 24 hours heparin gtt. - Dr. Dumont with cards was consulted and he recommended to stop heparin and start plavix and aspirin. Restart home beta nahum once pt no longer hypotensive. COPD Exacerbation Pt has hx of COPD, initial presentation consistent with exacerbation - plan per above - continue home tiotroprium - Continue solumedrol Severe Aortic Stenosis Echo showed severe - Cards on board, appreciate recs. Consider possible procedure once pt more stable. Macrocytic Anemia Pt with chronic anemia, baseline Hb 8-9. She has h/o CKD. Hb decreased to 6.2 over the weekend, was 10 on admission. s/p 1 U PRBC's. She has had some bleeding with deep suctioning. Suspected HIT. -Continue to monitor -Stop heparin Heparin Induced Thrombocytopenia, suspected Pt platelets have dropped from 224->87. She has gotten 8 days of heparin, one for therapeutic tx of NSTEMI and others for VTE ppx. She has had some bleeding with deep suction in her airway. Required 1U PRBC's due to Hb dropping to 6.2 over the weekend. -Stop Heparin -Monitor closely HFrEF on chart review pt has systolic dysfunction, however EF 55-60% and diastolic function unable to be evaluated on this echo. CAD s/p stents - Pt on prasugrel at home, will give plavix while here in hospital - Cont aspirin - Will restart beta nahum once pt no longer hypotensive Hx of CVA - Pt on prasugrel at home, will give plavix while here in hospital - Cont aspirin CKDIV - stable, monitor kidney function - Avoid nephrotoxic agents - Consulted Dr. Rivers with nephrology, appreciate recs - Renal US showed no hydronephrosis DM2 Pt on 80 units insulin daily at home. Currently on tube feeds with lantus 30U daily. Glucose controlled. - Continue 30 U lantus - Continue aggressive sliding scale - Hypoglycemia protocol Hypothyroidism Initial TSH WNL, repeat slightly low, but likely due to pt being acutely ill. - Cont home synthroid Hypokalemia, resolved - Will monitor Diet: Tube feeds Prognosis: poor Lines/Tubes: R femoral CVC 09/17, Humphreys catheter 09/17, ET tube 09/19, OG tube 09/19 VTE ppx: SCD's, stopping heparin ppx today GI ppx: Protonix CODE: INTUBATION ONLY dispo: inpt, CCU Addendum - Attending - Attending Attestation Date/Time: 09/26/18 1035 I personally evaluated the patient and discussed the management with Dr. Stanley I agree with the History, Examination, Assessment and Plan documented above with any addition or exceptions noted below. Sepsis with unknown source- s/p 7 days of abx- stopped today. Respiratory failure secondary to COPD- currently not weanable. Appreciate pulm recs. Severe aortic stenosis with fluid overload- lasix and d/c IVF. Not a surgical candidate at this time. Appreciate cards recs. Thrombocytopenia- stop heparin and repeat level daily. Hemoptysis- s/p 1 u PRBC this weekend. Hgb stable. stop heparin as above PVD- upper extremity arterial doppler today. CKD stage stage IV Guarded to poor prognosis
[2018-09-26 07:22] LABS: ALV-art Gradient 98.875 (0-20); Actual Bicarbonate (HCO3a) 15.5 mEq/L (22-28); Analyzer IN Cardio OR; Base Excess (BEa) -8.6 mEq/L (-2.0 to +3.0); CO2 Tension 26.9 mmHg (35.0-45.0); Calcium, Ionized 0.98 mmol/L (1.12-1.30); Carboxyhemoglobin (COHb) 0.8 gm% (0.0-3.0); Hemoglobin (Hb) 7.8 g/dL (12.0-16.0); O2 Tension (PaO2) 152.7 mmHg (> 80.0); Potassium - ABG Lab 4.12 mmol/L (3.70-5.30); Puncture Site LRA; pH, Arterial 7.38 (7.35-7.45)
[2018-09-26] MEDS ORDERED: Furosemide 40 MG/4 ML VIAL SLOW IVP SCH (08:00)
--- NOTE | 2018-09-26 08:02 | RAD ---
PORTABLE CHEST: Date: 09/26/18 HISTORY: CCU follow-up. On ventilator. COMPARISON: 09/25/18. FINDINGS: ET tube and NG tube remain in place. There is cardiomegaly with vascular congestion. There are confluent infiltrates seen in both mid and lower lungs, more pronounced on the right. IMPRESSION: The right lower lung infiltrates have increased in density when compared to yesterday. POS: [facility]
[2018-09-26] MEDS: Digoxin 0.5 MG/2 ML AMP SLOW IVP SCH (08:35)
[2018-09-26] MEDS: Thiamine 100 MG TAB PER TUBE SCH (08:35)
[2018-09-26] MEDS: Aspirin Chewable 81 MG TAB PER TUBE SCH (08:35)
[2018-09-26] MEDS: Clopidogrel Bisulfate 75 MG TAB PO SCH (08:35)
[2018-09-26] MEDS: Insulin Glargine 30 UNITS in Pre-Filled Syringe 1 EACH SC SCH (08:36)
[2018-09-26] MEDS: Pantoprazole 40 MG VIAL IVP SCH (08:37)
--- NOTE | 2018-09-26 09:19 | PRG ---
DATE OF SERVICE: 09/26/2018 A 35 minutes of critical care time. SUBJECTIVE: I apparently saw this patient back in 2012, but I have not followed her regularly since. She is currently in the hospital for treatment of respiratory failure and sepsis. She remains intubated on mechanical ventilation, but has been weaned off vasopressors. OBJECTIVE: VITAL SIGNS: Her temperature is 98.5, pulse 96, blood pressure 104/56, O2 saturation 100%, and respiratory rate 23. Total intake for the last 24 hours was 3827 and output 1820. She has been in positive fluid balance for the last 3 days. NEUROLOGIC: She is sedated on Versed and fentanyl. HEENT: Unremarkable except for endotracheal tube in place. NECK: No JVD. LUNGS: She has coarse rhonchi bilaterally with crackles on inspiration. CARDIOVASCULAR: S1 and S2 obscured by a 3/6 holosystolic murmur. ABDOMEN: Soft, obese, and nontender. EXTREMITIES: Edematous throughout. She has bruised over her arms. LABORATORY DATA: Sodium 137, potassium 4.1, chloride 110, CO2 of 18, BUN 44, creatinine 2.3, glucose 163, and calcium 6.8. A pH of 7.38, pCO2 of 26, pO2 of 152 on SIMV rate 14, tidal volume 400, PEEP 5, pressure support 10, and FiO2 of 40%. White count 9.1, hematocrit 22.7, and platelet count 87. Chest x-ray shows bilateral infiltrates right greater than left. These are worse than before. ASSESSMENT: 1. Sepsis syndrome - source unknown. 2. Valvular heart disease with congestive heart failure. 3. Hemoptysis. 4. Diabetes mellitus. 5. Metabolic acidosis - nonanion gap. 6. Underlying chronic obstructive pulmonary disease. 7. Peripheral vascular disease. 8. Chronic renal insufficiency. PLAN: 1. Antibiotics will be stopped since she has had more than 7 days. 2. Hold IV fluids in an attempt to diurese some. 3. Adjust mechanical ventilation settings. 4. Continue tube feeds. 5. I agree with stopping the heparin. Prognosis is very poor. Job ID: [id number]
[2018-09-26] MEDS: Lorazepam 2 MG/ML VIAL SLOW IVP PRN (11:02)
[2018-09-26] MEDS: fentaNYL Citrate/PF 2,000 MCG in Sodium Chloride 0.9% 60 ML IV SCH (11:31)
--- NOTE | 2018-09-26 13:41 | ULT ---
BILATERAL UPPER EXTREMITY ARTERIAL DOPPLER ULTRASOUND EVALUATION: TECHNIQUE: Multiple longitudinal and transverse images of the right and left upper extremity arterial system are obtained using a Multi-Hertz linear array transducer. FINDINGS: Real-time, color-flow, and spectral wave-form Doppler analysis demonstrates flow seen in the right an d left subclavian arteries, axillary arteries, brachial arteries, and radial and ulnar arteries. No significant evidence of occlusion is seen. Predominantly biphasic waveforms are seen in all these ve ssels. Flow velocity is not significantly decreased. Flow velocity between the right and left upper extremity arterial systems is similar. If there is, however, concern for subclavian stenosis and subclavian steal, it may be worth while to consider CTA of the subclavian arteries. Unfortunately, vertebral arteries were not assessed to dete rmine whether there is reversal of flow and subclavian steal. IMPRESSION: No significant evidence of obvious subclavian stenosis seen. Right and left upper extremities have s imilar flow velocities. POS: [facility]
[2018-09-26 17:11] LABS: Folate,Hemolysate 356.2 ng/mL (Not Estab.); Hematocrit 22.8 % (34.0-46.6); RBC Folate Test Component 1562 ng/mL (>498)
--- NOTE | 2018-09-26 17:17 | PRG ---
DATE OF SERVICE: 09/26/2018 SUBJECTIVE: Unfortunately, Ms. Darnell did require intubation during my week absence New events include a decrease in her platelet counts. She has been on IV heparin flushes over the last 10 days. OBJECTIVE: VITAL SIGNS: Blood pressure 105/62, pulse 97, and respirations 20. LUNGS: Rhonchi and rales noted, right versus left. HEART: Regular rate and rhythm. ABDOMEN: Soft, mildly distended. EXTREMITIES: 1+ pitting edema. NEUROLOGIC: Currently intubated and sedated. PERTINENT LABS: Hemoglobin 7.6. Creatinine 2.27 and GFR 23. IMPRESSION: 1. Sepsis syndrome. 2. Respiratory failure. 3. Severe aortic stenosis. 4. Severe peripheral vascular disease. 5. Chronic kidney disease. 6. ? heparin-induced thrombocytopenia. 7. Acute on chronic renal insufficiency. RECOMMENDATIONS: Unfortunately, Ms. Darnell's status has worsened over the last week. At this point, her current condition may not be reversible. She does have underlying severe aortic stenosis with increase in mean MV gradient. She continues to be anemic with continued chronic renal insufficiency and respiratory failure. At this point, close observation recommended. Agree with stopping heparin. Prognosis appears poor. Job ID: [id number] [facility]
[2018-09-27 05:41] LABS: Anion Gap 17 mmol/L (10-20); BUN (Urea Nitrogen) 47 mg/dL (9.8-20.1); Calc. Creatinine Clearance 41 mL/min (70-130); Calcium 7.3 mg/dL (7.8-10.44); Carbon Dioxide 16 mmol/L (23-31); Chloride 111 mmol/L (98-107); Estimated GFR-MDRD 20; Glucose 149 mg/dL (80-115); Potassium 4.5 mmol/L (3.5-5.1); Sodium 139 mmol/L (136-145)
[2018-09-27] MEDS: methylPREDNISolone Sod Succ 40 MG VIAL IVP SCH ×3 (05:51→21:58)
[2018-09-27] MEDS: Levothyroxine Sodium 50 MCG TAB PO SCH (05:52)
--- NOTE | 2018-09-27 06:00 | PDOC.CTH ---
Cardiology Progress Note - Subjective o significant changes overnight - Objective Vital Signs Temp Pulse Resp BP Pulse Ox 09/27/18 04:00 98.4 F 16 09/27/18 02:54 98 100/61 09/27/18 02:00 17 09/27/18 00:00 98.1 F 17 09/26/18 22:00 18 09/26/18 21:58 94 91/56 L 09/26/18 20:00 18 09/26/18 19:00 98.3 F 09/26/18 18:50 89 90/51 L 100 09/26/18 18:00 16 Admit Weight 235 lb 14.314 oz Weight 243 lb 13.3 oz 09/25/18 09/26/18 09/27/18 06:59 06:59 06:59 Intake Total 3796.4 3827.7 767 Output Total 2063 1820 1835 Balance 1733.4 2007.7 -1503 - Physical Examination General/Neuro: NAD Neck: carotid US brisk, no JVD present Lungs: unlabored respirations Heart: PMI normal, RRR, other: (2/6 DU) Abdomen: NT/ND, soft Extremities: + edema B - Telemetry Telemetry Rhythm: SR - Labs Result Diagrams: 09/27/18 04:10 09/27/18 04:10 Troponin/CKMB CK-MB (CK-2) 10.1 ng/mL (0-6.6) H* 09/17/18 23:03 Troponin I 1.370 ng/mL (< 0.028) H* 09/17/18 23:03 - Assessment/Plan Severe Respirator failure Anemia Acute on chronic renal insufficiency DM COPD PVD Pt remains on vent Severe may be a pressing issue for continued supportive and not being weanable from vent. Discussed with Dr. Singleton and he concurs Creatinine has worsened ?HIT; platelet count has decreased but over last 24 hours has rebounded (87K to 98K) Also discussed with Pts primary compliance clerk Dr. Loving Initially recommended transfer to [facility]. with bad experieince there. Will transfer to [facility] for possible valvuloplasty
--- NOTE | 2018-09-27 06:58 | PDOC.FM ---
- Subjective Subjective: Patient resting comfortably, sedated on ventilator. Responsive to touch and loud sounds. Per the nurses, she has not had a BM in 2 days. - Objective MAR Reviewed: Yes Vital Signs & Weight: Vital Signs (12 hours) Temp Pulse Resp BP Pulse Ox 09/27/18 06:49 98 87/52 L 09/27/18 06:44 97 21 H 99 09/27/18 06:00 17 09/27/18 04:00 98.4 F 16 09/27/18 02:54 98 100/61 09/27/18 02:00 17 09/27/18 00:00 98.1 F 17 09/26/18 22:00 18 09/26/18 21:58 94 91/56 L 09/26/18 20:00 18 09/26/18 19:00 98.3 F Weight Admit Weight 107 kg Weight 110.6 kg Most Recent Monitor Data Heart Rate from ECG 97 NIBP 95/60 NIBP BP-Mean 71 Respiration from ECG 17 SpO2 100 I&O: 09/25/18 09/26/18 09/27/18 06:59 06:59 06:59 Intake Total 3796.4 3827.7 1392 Output Total 2063 1820 1935 Balance 1733.4 2007.7 -543 Result Diagrams: 09/27/18 04:10 09/27/18 04:10 Phys Exam - Physical Examination Constitutional: NAD HEENT: moist MMs diffuse rhonchi, on ventilator Cardiovascular: RRR, no rub 4/6 systolic murmur Gastrointestinal: soft, non-tender, no distention hypoactive bowel sounds trace edema, pulses present Neurological: non-focal, moves all 4 limbs sedated on ventilator Deviation from normal: sedated on ventilator Dx/Plan (1) Septic shock Code(s): A41.9 - SEPSIS, UNSPECIFIED ORGANISM; R65.21 - SEVERE SEPSIS WITH SEPTIC SHOCK Status: Acute (2) NSTEMI (non-ST elevated myocardial infarction) Code(s): I21.4 - NON-ST ELEVATION (NSTEMI) MYOCARDIAL INFARCTION Status: Acute (3) CAP (community acquired pneumonia) Code(s): J18.9 - PNEUMONIA, UNSPECIFIED ORGANISM Status: Acute Qualifiers: Laterality: right Lung location: upper lobe of lung Qualified Code(s): J18.1 - Lobar pneumonia, unspecified organism (4) Acute respiratory failure with hypoxia Code(s): J96.01 - ACUTE RESPIRATORY FAILURE WITH HYPOXIA Status: Acute (5) COPD (chronic obstructive pulmonary disease) Status: Acute Qualifiers: COPD type: COPD with acute exacerbation Qualified Code(s): J44.1 - Chronic obstructive pulmonary disease with (acute) exacerbation (6) CKD (chronic kidney disease) Code(s): N18.9 - CHRONIC KIDNEY DISEASE, UNSPECIFIED Status: Acute Qualifiers: Chronic kidney disease stage: stage 4 (severe) Qualified Code(s): N18.4 - Chronic kidney disease, stage 4 (severe) (7) Diabetes mellitus Code(s): E11.9 - TYPE 2 DIABETES MELLITUS WITHOUT COMPLICATIONS Status: Acute Qualifiers: Diabetes mellitus type: type 2 Diabetes mellitus parts counterman insulin use: with parts counterman use Diabetes mellitus complication status: with kidney complications Diabetes mellitus complication detail: with chronic kidney disease Chronic kidney disease stage: stage 4 (severe) Qualified Code(s): E11.22 - Type 2 diabetes mellitus with diabetic chronic kidney disease; N18.4 - Chronic kidney disease, stage 4 (severe); Z79.4 - parts counterman (current) use of insulin (8) History of CVA (cerebrovascular accident) Code(s): Z86.73 - PRSNL HX OF TIA (TIA), AND CEREB INFRC W/O RESID DEFICITS Status: Acute (9) HTN (hypertension) Code(s): I10 - ESSENTIAL (PRIMARY) HYPERTENSION Status: Acute Qualifiers: Hypertension type: essential hypertension Qualified Code(s): I10 - Essential (primary) hypertension (10) HLD (hyperlipidemia) Code(s): E78.5 - HYPERLIPIDEMIA, UNSPECIFIED Status: Acute Qualifiers: Hyperlipidemia type: unspecified Qualified Code(s): E78.5 - Hyperlipidemia , unspecified (11) CAD (coronary artery disease) Code(s): I25.10 - ATHSCL HEART DISEASE OF [place] CORONARY ARTERY W/O ANG PCTRS Status: Acute Qualifiers: Coronary Disease-Associated Artery/Lesion type: [place] artery [place] vs. transplanted heart: [place] heart Associated angina: angina presence unspecified Qualified Code(s): I25.10 - Atherosclerotic heart disease of [place] coronary artery without angina pectoris (12) Aortic stenosis, severe Code(s): I35.0 - NONRHEUMATIC AORTIC (VALVE) STENOSIS Status: Acute (13) Heparin induced thrombocytopenia Code(s): D75.82 - HEPARIN INDUCED THROMBOCYTOPENIA (HIT) Status: Suspected - Plan Plan: Shock Likely septic 2/2 CAP. pt febrile and hypotensive on original presentation. CT showed interstitial opacities in R upper lobe and lingula. s/p 30mL/kg fluid bolus on admission and 2L NS boluses on 09/19. Procalcitonin 3.39->4.23->2.43, lactate 2.5->1. Blood Cx no growth at 48 hours. Pneumonia is not a clear source at this time, but there is not an alternative that has been found. Abd US showed distended gallbladder with wall thickening and mild pericholecystic fluid , but no stones or sludge. Per Dr. Mcdaniel, this would be unlikely to cause this degree of illness. Upper extremity arterial doppler normal. - Pt off pressors over the weekend. Discrepancy between UE and LE BP's, so have switched to leg BP's. - s/p vanc and zosyn, no longer on antibiotics - Solumedrol, Thiamine. s/p 5 days of ascorbic acid - Severe aortic stenosis likely contributing Acute hypoxic respiratory failure Etiology likely mixed, pneumonia and/or COPD exacerbation. Pt was initially on BiPAP, but then was able to maintain sats on NC, however, she continued having to work hard to breath and remained tachypneic. On 09/19, Dr. Mcdaniel made the decision to intubate her due to her impending respiratory failure. V/Q scan was considered, however pulm did not think this was necessary at this time. Vent settings: SIMV rate 10, pressure support 10, FiO2 50%, PEEP 5 - Continue mechanical ventilation - On versed and fentanyl for sedation - Repeat CXR - Pulm has been consulted, appreciate recs NSTEMI trop 0.08->1.[address] depression in lateral leads. s/p 24 hours heparin gtt. - Dr. Dumont with cards was consulted and he recommended to stop heparin and start plavix and aspirin. Restart home beta nahum once pt no longer hypotensive. COPD Exacerbation Pt has hx of COPD, initial presentation consistent with exacerbation - plan per above - continue home tiotroprium - Continue solumedrol Severe Aortic Stenosis Echo showed severe - Cards on board, appreciate recs. Consider possible procedure once pt more stable. Macrocytic Anemia Pt with chronic anemia, baseline Hb 8-9. She has h/o CKD. Hb decreased to 6.2 over the weekend, was 10 on admission. s/p 1 U PRBC's. She has had some bleeding with deep suctioning. Suspected HIT. -Continue to monitor -Heparin d/c'd Heparin Induced Thrombocytopenia, suspected Pt platelets have dropped from 224->87. She has gotten 8 days of heparin, one for therapeutic tx of NSTEMI and others for VTE ppx. She has had some bleeding with deep suction in her airway. Required 1U PRBC's due to Hb dropping to 6.2 over the weekend. -Heparin d/c'd -Heparin antibodies -Monitor closely HFrEF on chart review pt has systolic dysfunction, however EF 55-60% and diastolic function unable to be evaluated on this echo. CAD s/p stents - Pt on prasugrel at home, will give plavix while here in hospital - Cont aspirin - Will restart beta nahum once pt no longer hypotensive Hx of CVA - Pt on prasugrel at home, will give plavix while here in hospital - Cont aspirin CKDIV - stable, monitor kidney function - Avoid nephrotoxic agents - Consulted Dr. Rivers with nephrology, appreciate recs - Renal US showed no hydronephrosis DM2 Pt on 80 units insulin daily at home. Currently on tube feeds with lantus 30U daily. Glucose controlled. - Continue 30 U lantus - Continue aggressive sliding scale - Hypoglycemia protocol Hypothyroidism Initial TSH WNL, repeat slightly low, but likely due to pt being acutely ill. - Cont home synthroid Hypokalemia, resolved - Will monitor Diet: Tube feeds Prognosis: very poor Lines/Tubes: R femoral CVC 09/17, Humphreys catheter 09/17, ET tube 09/19, OG tube 09/19 VTE ppx: SCD's GI ppx: Protonix CODE: INTUBATION ONLY dispo: inpt, CCU Addendum - Attending - Attending Attestation Date/Time: 09/27/18 5701 I personally evaluated the patient and discussed the management with Dr. Stanley. I agree with the History, Examination, Assessment and Plan documented above with any addition or exceptions noted below. Acute respiratory failure- intubated and sedated. Severe Aortic Stenosis- contributing to her inability to wean off the vent. Cardiology is attempting transfer to higher level of care for attempted aortic valvuloplasty or valve replacement.
[2018-09-27 07:08] LABS: Hemoglobin 7.3 g/dL (12.0-16.0); Mean Corpuscular HGB CONC 33.1 g/dL (32.0-36.0); Mean Corpuscular Hemoglobin 32.2 pg (27.0-31.0); Mean Corpuscular Volume 97.3 fL (78.0-98.0); Mean Platelet Volume 8.2 fL (7.4-10.4); Platelet Count 98 thou/uL (130-400); RBC Distribution Width 16.8 % (11.5-14.5); Red Blood Cell (RBC) Count 2.26 mill/uL (4.20-5.40); White Blood Cell (WBC) Count 7.6 thou/uL (4.8-10.8)
[2018-09-27 07:23] LABS: Actual Bicarbonate (HCO3a) 15.9 mEq/L (22-28); Analyzer IN Cardio OR; Base Excess (BEa) -9.5 mEq/L (-2.0 to +3.0); CO2 Tension 32.5 mmHg (35.0-45.0); Calcium, Ionized 1.01 mmol/L (1.12-1.30); Carboxyhemoglobin (COHb) 1.6 gm% (0.0-3.0); Hemoglobin (Hb) 6.9 g/dL (12.0-16.0); O2 Tension (PaO2) 107.1 mmHg (> 80.0); Puncture Site LRA; pH, Arterial 7.31 (7.35-7.45)
[2018-09-27 07:24] LABS: ALV-art Gradient 66.175 (0-20)
[2018-09-27 09:28] LABS: Band 15 % (5-11); Lymphocytes 5 % (21-51); MDiff Complete? YES; Neutrophil 79 % (42-75); Platelet Morphology Comment Appears Decreased; Polychromasia SLIGHT = 2-3 cells (100X) (0-2/hpf); Promyelocytes 1 % (0-0)
[2018-09-27] MEDS: Thiamine 100 MG TAB PER TUBE SCH (09:36)
[2018-09-27] MEDS: Clopidogrel Bisulfate 75 MG TAB PO SCH (09:36)
[2018-09-27] MEDS: Aspirin Chewable 81 MG TAB PER TUBE SCH (09:36)
[2018-09-27] MEDS: Digoxin 0.5 MG/2 ML AMP SLOW IVP SCH (09:36)
[2018-09-27] MEDS: Pantoprazole 40 MG VIAL IVP SCH (09:37)
[2018-09-27] MEDS: Insulin Glargine 30 UNITS in Pre-Filled Syringe 1 EACH SC SCH (09:38)
--- NOTE | 2018-09-27 09:42 | PRG ---
DATE OF SERVICE: 09/27/2018 SUBJECTIVE: Ms. Darnell remains on mechanical ventilation, has not changed overnight. OBJECTIVE: VITAL SIGNS: Temperature 98.4, pulse 100, blood pressure 104/68. A 24-hour intake 1392, output 1935. Weight 243 pounds. GENERAL: She is sedated on mechanical ventilation. HEENT: Unchanged. NECK: No JVD. LUNGS: Coarse breath sounds. CARDIAC: S1 and S2, regular. ABDOMEN: Obese, soft, and nontender. EXTREMITIES: Edematous. LABORATORY DATA: Sodium 139, potassium 4.5, chloride 111, CO2 of 16, BUN 47, creatinine 2.4, glucose 149. A pH 7.31, pCO2 of 32, pO2 of 107 on SIMV rate 10, tidal volume 400, PEEP 5, pressure support 10, FiO2 of 30%. White blood cell count 7.6, hematocrit 22, and platelet count 98. ASSESSMENT: 1. Acute respiratory failure, requiring mechanical ventilation. 2. Severe aortic stenosis. 3. Question of sepsis syndrome. 4. Hemoptysis, which is resolved. 5. Non-anion gap metabolic acidosis, which is probably secondary to renal insufficiency. 6. Underlying chronic obstructive pulmonary disease. 7. Peripheral vascular disease. PLAN: 1. The patient's antibiotics were stopped yesterday. 2. I spoke with Dr. Dumont. I think she probably needs to be transferred to a higher level of care to situation where the aortic valve can be addressed. I doubt she is weanable without performing valvuloplasty or valve replacement. 3. Continue tube feeds. 4. We will follow. TIME SPENT: 30 minutes critical time. Job ID: [id number]
[2018-09-27] MEDS: HumaLOG 300 UNITS/3 ML VIAL SC PRN ×3 (11:58→22:59)
[2018-09-27] MEDS ORDERED: Furosemide 40 MG/4 ML VIAL SLOW IVP SCH (12:30)
[2018-09-27] MEDS: fentaNYL Citrate/PF 2,000 MCG in Sodium Chloride 0.9% 60 ML IV SCH (18:46)
[2018-09-28 02:44] VITALS: BP 94/52
[2018-09-28 06:21] LABS: Band 14 % (5-11); Hemoglobin 7.6 g/dL (12.0-16.0); Lymphocytes 1 % (21-51); MDiff Complete? YES; Mean Corpuscular HGB CONC 33.4 g/dL (32.0-36.0); Mean Corpuscular Hemoglobin 33.2 pg (27.0-31.0); Mean Corpuscular Volume 99.3 fL (78.0-98.0); Mean Platelet Volume 8.9 fL (7.4-10.4); Monocytes 1 % (0-10); Neutrophil 84 % (42-75); Nucleated RBC 1 % (0); Platelet Count 82 thou/uL (130-400); Platelet Morphology Comment Appears Decreased; RBC Distribution Width 16.7 % (11.5-14.5); Red Blood Cell (RBC) Count 2.27 mill/uL (4.20-5.40); White Blood Cell (WBC) Count 9.7 thou/uL (4.8-10.8)
--- NOTE | 2018-09-28 07:08 | PDOC.FM ---
- Subjective Subjective: Patient resting comfortably sedated on ventilator. Spoke to this morning as pt was approved for transfer to [facility], but he says he thinks that would be going against her wishes since the risks associated with the procedure are high. He would like to discuss the procedure further with the rug receiving clerk, but thinks he would like to proceed with palliative measures at this time. His wishes are for us to be able to extubate her and then him take her home. - Objective MAR Reviewed: Yes Vital Signs & Weight: Vital Signs (12 hours) Temp Pulse Resp BP Pulse Ox 09/28/18 06:00 21 H 09/28/18 04:00 98.4 F 21 H 09/28/18 02:43 97 94/52 L 09/28/18 02:00 21 H 09/28/18 00:00 98.7 F 21 H 09/27/18 22:12 105 H 94/53 L 09/27/18 22:00 25 H 09/27/18 20:00 98.1 F 22 H 96 Weight Admit Weight 107 kg Weight 110.6 kg Most Recent Monitor Data Heart Rate from ECG 96 NIBP 103/55 NIBP BP-Mean 71 Respiration from ECG 22 SpO2 98 I&O: 09/27/18 09/28/18 09/29/18 06:59 06:59 06:59 Intake Total 1392 1010.5 Output Total 1935 1840 Balance -543 -829.5 Result Diagrams: 09/28/18 04:30 09/28/18 04:30 Phys Exam - Physical Examination Constitutional: NAD (resting comfortably on ventilator) HEENT: moist MMs, sclera anicteric diffuse rhonchi and wheezing on ventilator Cardiovascular: RRR 4/6 holosystolic murmur Gastrointestinal: soft, non-tender, no distention, positive bowel sounds 1+ edema in all extremities, thready pulses Deviation from normal: sedated Skin: normal turgor Dx/Plan (1) Septic shock Code(s): A41.9 - SEPSIS, UNSPECIFIED ORGANISM; R65.21 - SEVERE SEPSIS WITH SEPTIC SHOCK Status: Acute (2) NSTEMI (non-ST elevated myocardial infarction) Code(s): I21.4 - NON-ST ELEVATION (NSTEMI) MYOCARDIAL INFARCTION Status: Acute (3) CAP (community acquired pneumonia) Code(s): J18.9 - PNEUMONIA, UNSPECIFIED ORGANISM Status: Acute Qualifiers: Laterality: right Lung location: upper lobe of lung Qualified Code(s): J18.1 - Lobar pneumonia, unspecified organism (4) Acute respiratory failure with hypoxia Code(s): J96.01 - ACUTE RESPIRATORY FAILURE WITH HYPOXIA Status: Acute (5) COPD (chronic obstructive pulmonary disease) Status: Acute Qualifiers: COPD type: COPD with acute exacerbation Qualified Code(s): J44.1 - Chronic obstructive pulmonary disease with (acute) exacerbation (6) CKD (chronic kidney disease) Code(s): N18.9 - CHRONIC KIDNEY DISEASE, UNSPECIFIED Status: Acute Qualifiers: Chronic kidney disease stage: stage 4 (severe) Qualified Code(s): N18.4 - Chronic kidney disease, stage 4 (severe) (7) Diabetes mellitus Code(s): E11.9 - TYPE 2 DIABETES MELLITUS WITHOUT COMPLICATIONS Status: Acute Qualifiers: Diabetes mellitus type: type 2 Diabetes mellitus director of strategic sales insulin use: with director of strategic sales use Diabetes mellitus complication status: with kidney complications Diabetes mellitus complication detail: with chronic kidney disease Chronic kidney disease stage: stage 4 (severe) Qualified Code(s): E11.22 - Type 2 diabetes mellitus with diabetic chronic kidney disease; N18.4 - Chronic kidney disease, stage 4 (severe); Z79.4 - MCFP (current) use of insulin (8) History of CVA (cerebrovascular accident) Code(s): Z86.73 - PRSNL HX OF TIA (TIA), AND CEREB INFRC W/O RESID DEFICITS Status: Acute (9) HTN (hypertension) Code(s): I10 - ESSENTIAL (PRIMARY) HYPERTENSION Status: Acute Qualifiers: Hypertension type: essential hypertension Qualified Code(s): I10 - Essential (primary) hypertension (10) HLD (hyperlipidemia) Code(s): E78.5 - HYPERLIPIDEMIA, UNSPECIFIED Status: Acute Qualifiers: Hyperlipidemia type: unspecified Qualified Code(s): E78.5 - Hyperlipidemia , unspecified (11) CAD (coronary artery disease) Code(s): I25.10 - ATHSCL HEART DISEASE OF [place] CORONARY ARTERY W/O ANG PCTRS Status: Acute Qualifiers: Coronary Disease-Associated Artery/Lesion type: [place] artery [place] vs. transplanted heart: [place] heart Associated angina: angina presence unspecified Qualified Code(s): I25.10 - Atherosclerotic heart disease of [place] coronary artery without angina pectoris (12) Aortic stenosis, severe Code(s): I35.0 - NONRHEUMATIC AORTIC (VALVE) STENOSIS Status: Acute (13) Heparin induced thrombocytopenia Code(s): D75.82 - HEPARIN INDUCED THROMBOCYTOPENIA (HIT) Status: Suspected - Plan Plan: Shock Likely septic 2/2 CAP. pt febrile and hypotensive on original presentation. CT showed interstitial opacities in R upper lobe and lingula. s/p 30mL/kg fluid bolus on admission and 2L NS boluses on 09/19. Procalcitonin 3.39->4.23->2.43, lactate 2.5->1. Blood Cx no growth at 48 hours. Pneumonia is not a clear source at this time, but there is not an alternative that has been found. Abd US showed distended gallbladder with wall thickening and mild pericholecystic fluid , but no stones or sludge. Per Dr. Mcdaniel, this would be unlikely to cause this degree of illness. Upper extremity arterial doppler normal. - Pt off pressors over the weekend. Discrepancy between UE and LE BP's, so have switched to leg BP's. - s/p vanc and zosyn, no longer on antibiotics - Solumedrol, Thiamine. s/p 5 days of ascorbic acid - Severe aortic stenosis likely contributing Acute hypoxic respiratory failure Etiology likely mixed, pneumonia and/or COPD exacerbation. Pt was initially on BiPAP, but then was able to maintain sats on NC, however, she continued having to work hard to breath and remained tachypneic. On 09/19, Dr. Mcdaniel made the decision to intubate her due to her impending respiratory failure. V/Q scan was considered, however pulm did not think this was necessary at this time. She appears fluid overloaded at this time. - Continue mechanical ventilation - On versed and fentanyl for sedation - Repeat CXR - Pulm has been consulted, appreciate recs NSTEMI trop 0.08->1.[address] depression in lateral leads. s/p 24 hours heparin gtt. - Dr. Dumont with cards was consulted and he recommended to stop heparin and start plavix and aspirin. Restart home beta nahum once pt no longer hypotensive. COPD Exacerbation Pt has hx of COPD, initial presentation consistent with exacerbation - plan per above - continue home tiotroprium - Continue solumedrol Severe Aortic Stenosis Echo showed severe - Cards on board, appreciate recs. - Pt was accepted for transfer to facility where she could have valvuloplasty, but her is now refusing transfer as he thinks the procedure is too high risk. Macrocytic Anemia Pt with chronic anemia, baseline Hb 8-9. She has h/o CKD. Hb decreased to 6.2 over the weekend, was 10 on admission. s/p 1 U PRBC's. She has had some bleeding with deep suctioning. Suspected HIT. -Continue to monitor -Heparin d/c'd Heparin Induced Thrombocytopenia, suspected Pt platelets have dropped from 224->87. She has gotten 8 days of heparin, one for therapeutic tx of NSTEMI and others for VTE ppx. She has had some bleeding with deep suction in her airway. Required 1U PRBC's due to Hb dropping to 6.2 over the weekend. -Heparin d/c'd -Heparin antibodies -Monitor closely HFrEF on chart review pt has systolic dysfunction, however EF 55-60% and diastolic function unable to be evaluated on this echo. - Currently appears fluid overloaded, would benefit from another dose of lasix likely CAD s/p stents - Pt on prasugrel at home, will give plavix while here in hospital - Cont aspirin - Will restart beta nahum once pt no longer hypotensive Hx of CVA - Pt on prasugrel at home, will give plavix while here in hospital - Cont aspirin CKDIV - stable, monitor kidney function - Avoid nephrotoxic agents - Consulted Dr. Rivers with nephrology, appreciate recs - Renal US showed no hydronephrosis DM2 Pt on 80 units insulin daily at home. Currently on tube feeds with lantus 30U daily. Glucose controlled. - Continue 30 U lantus - Continue aggressive sliding scale - Hypoglycemia protocol Hypothyroidism Initial TSH WNL, repeat slightly low, but likely due to pt being acutely ill. - Cont home synthroid Hypokalemia, resolved - Will monitor Diet: Tube feeds Prognosis: very poor Lines/Tubes: R femoral CVC 09/17, Humphreys catheter 09/17, ET tube 09/19, OG tube 09/19 VTE ppx: SCD's GI ppx: Protonix CODE: INTUBATION ONLY dispo: inpt, CCU Addendum - Attending - Attending Attestation Date/Time: 09/28/18 0254 I personally evaluated the patient and discussed the management with Dr. Stanley. I agree with the History, Examination, Assessment and Plan documented above with any addition or exceptions noted below. Patient is being transferred to [facility] for evaluation of aortic valve surgery/replacement.
--- NOTE | 2018-09-28 07:10 | RAD ---
CHEST ONE VIEW: INDICATIONS: History of intubation. COMPARISON: 09/26/2018 FINDINGS: The parenchymal opacities involving both lungs have worsened. Cardiomegaly persists. EG tube and ga stric catheter are unchanged. No pneumothorax is evident. IMPRESSION: Worsening parenchymal opacities of both lungs may reflect worsening edema, hemorrhage, or pneumonia. Continued followup is recommended. POS: BH
[2018-09-28] MEDS: methylPREDNISolone Sod Succ 40 MG VIAL IVP SCH (07:17)
[2018-09-28] MEDS: Levothyroxine Sodium 50 MCG TAB PO SCH (07:17)
[2018-09-28 07:30] LABS: Anion Gap 15 mmol/L (10-20); BUN (Urea Nitrogen) 52 mg/dL (9.8-20.1); Calc. Creatinine Clearance 44 mL/min (70-130); Calcium 6.9 mg/dL (7.8-10.44); Carbon Dioxide 16 mmol/L (23-31); Chloride 113 mmol/L (98-107); Estimated GFR-MDRD 22; Glucose 142 mg/dL (80-115); Potassium 4.1 mmol/L (3.5-5.1); Sodium 140 mmol/L (136-145)
[2018-09-28 07:34] LABS: Actual Bicarbonate (HCO3a) 17.7 mEq/L (22-28); Base Excess (BEa) -8.4 mEq/L (-2.0 to +3.0); CO2 Tension 38.7 mmHg (35.0-45.0); Calcium, Ionized 1.04 mmol/L (1.12-1.30); Carboxyhemoglobin (COHb) 1.2 gm% (0.0-3.0); Hemoglobin (Hb) 7.6 g/dL (12.0-16.0); Potassium - ABG Lab 4.25 mmol/L (3.70-5.30); pH, Arterial 7.28 (7.35-7.45)
[2018-09-28 07:35] LABS: Puncture Site LRA
[2018-09-28 07:36] LABS: ALV-art Gradient 193.125 (0-20)
--- NOTE | 2018-09-28 09:15 | PRG ---
DATE OF SERVICE: 09/28/2018 TIME SPENT: 35 minutes of critical care time. SUBJECTIVE: The patient remains in the hospital, pending transfer to [facility] in [place] for evaluation of her aortic valve. I spoke to her on the phone this morning. He was very hesitant to have her go down, but I have told him that dressing the aortic valve is the only way that she could possibly get better and even that may be a long shot at this point. OBJECTIVE: VITAL SIGNS: On exam at this time, temperature is 98.4, pulse 92, blood pressure 96/50, and O2 sat 98%. She is currently on assist-control ventilation, tidal volume of 400, rate of 15, FiO2 of 50%, and PEEP of 10. A 24-hour intake was 1040 mL, output 1840 mL. HEENT: Unremarkable. NECK: No JVD. LUNGS: Coarse breath sounds. CARDIAC: S1 and S2, muffled by 3/6 holosystolic murmur. ABDOMEN: Soft. EXTREMITIES: Edematous. LABORATORY DATA: Sodium of 140, potassium 4.1, chloride 113, CO2 of 16, BUN 52, creatinine 2.3, and glucose 142. PH of 7.28, pCO2 of 38, pO2 of 115 on assist-control rate of 15, tidal volume 400, PEEP 10, pressure support 10, and FiO2 of 50%. White blood cell count of 9.7, hematocrit 22.6, and platelet count 82. IMAGING DATA: Her chest x-ray shows diffuse pulmonary edema bilaterally. ASSESSMENT: 1. Severe aortic stenosis with development of pulmonary edema/diastolic congestive heart failure. 2. Acute respiratory failure, requiring mechanical ventilation. 3. Non-anion gap metabolic acidosis. 4. Renal insufficiency secondary to the cardiorenal syndrome from the aortic stenosis. 5. Underlying chronic obstructive pulmonary disease. 6. Peripheral vascular disease. PLAN: 1. The was agreeable to transfer her. I told him that I could not guarantee outcome and I could not even guarantee if the team down there would even intervene. They obviously need to review her situation personally and make decisions based on their best judgment. 2. I have increased the patient's ventilatory rate. 3. I doubt that there is anything else that we can do here to help her at this time. Job ID: [id number]
[2018-09-28 09:26] VITALS: TEMP 97.7
[2018-09-28] MEDS: Pantoprazole 40 MG VIAL IVP SCH (09:28)
[2018-09-28] MEDS: Clopidogrel Bisulfate 75 MG TAB PO SCH (09:29)
[2018-09-28] MEDS: Aspirin Chewable 81 MG TAB PER TUBE SCH (09:29)
[2018-09-28] MEDS: Insulin Glargine 30 UNITS in Pre-Filled Syringe 1 EACH SC SCH (09:29)
[2018-09-28] MEDS: Digoxin 0.5 MG/2 ML AMP SLOW IVP SCH (09:29)
[2018-09-28] MEDS: Thiamine 100 MG TAB PER TUBE SCH (09:29)
[2018-09-28 12:34] LABS: Heparin-Induced Ab (HITA) Negative (Negative)
--- NOTE | 2018-09-30 04:24 | DIS ---
DATE OF ADMISSION: 09/17/2018 DATE OF DISCHARGE: 09/28/2018 ADMITTING RESIDENT: Alistair Langston MD DISCHARGE RESIDENT: Pratima Stanley MD CONSULTATIONS: 1. Dr. Dumont with Cardiology. 2. Dr. Singleton with pulmonology. 3. Dr. Rivers with Nephrology. PROCEDURES: 1. Right femoral central venous catheter on 09/17/2018. 2. Endotracheal intubation on 09/19/2018. IMAGING STUDIES: 1. Chest x-ray showed no evidence of acute cardiopulmonary disease. 2. Echocardiogram showed an ejection fraction of 55% to 60%, mild concentric left ventricular hypertrophy, severe aortic stenosis, mild mitral regurgitation, mild tricuspid regurgitation, diastolic function could not be assessed. 3. Chest x-ray on 09/20/2018 showed ET tube at the level of the aortic knob. NG tube in stomach, enlarged heart, mild pulmonary vascular congestion. Possible infiltrate in right infrahilar lung. 4. Chest x-ray on 09/21/2018 showed ET tube in slightly low position, otherwise stable. 5. Renal ultrasound showed a possible small right renal cyst and no kidney obstruction. 6. Abdominal ultrasound showed distended gallbladder with mild gallbladder wall thickening, possible gallbladder wall edema, minimal pericholecystic fluid and trace ascites. No sludge or stone seen within the gallbladder. Fatty change of the liver. 7. Chest x-ray on 09/22/2018 showed ET tube and NG tubes in place, cardiomegaly with vascular congestion, bibasilar infiltrate or atelectasis. 8. Chest x-ray from 09/23/2018 showed stable appearance of the chest. 9. Chest x-ray from 09/24/2018 showed cardiomegaly, mild vascular engorgement, small effusions, and bibasilar atelectasis. 10. Chest x-ray from 09/26/2018 showed right lower lung infiltrates have increased in density compared to previous. 11. Chest x-ray from 09/28/2018 showed worsening parenchymal opacities of both lungs reflecting worsening edema versus hemorrhage versus pneumonia. PRIMARY DIAGNOSES: 1. Septic shock. 2. Cardiorenal syndrome. 3. Suspected cardiogenic shock. 4. Acute hypoxic respiratory failure. 5. Qcd-[id number] myocardial infarction. 6. Chronic obstructive pulmonary disease exacerbation. 7. Severe aortic stenosis. 8. Pulmonary edema. 9. Hypokalemia. 10. Thrombocytopenia. SECONDARY DIAGNOSES: 1. Heart failure with reduced ejection fraction. 2. Coronary artery disease, status post stents. 3. History of cerebrovascular accident. 4. Chronic kidney disease 4. 5. Diabetes type 2, on insulin. 6. Hypothyroidism. DISCHARGE MEDICATIONS: 1. DuoNeb. 2. Aspirin 81 mg daily. 3. Plavix 75 mg daily. 4. Digoxin 0.125 mg slow IV push q.a.m. 5. Fentanyl for sedation. 6. Lantus 30 units subcu q.a.m. 7. Sliding scale insulin. 8. Synthroid 50 mcg p.o. daily. 9. Solu-Medrol 20 mg IV push q.8 hours. 10. Versed p.r.n. sedation. 11. Protonix 40 mg IV push daily. 12. Thiamine 100 mg per tube daily. DISCONTINUED MEDICATIONS: All home medications other than what was mentioned were held at this time. HISTORY OF PRESENT ILLNESS/HOSPITAL COURSE: This is a 63-year-old female with past medical history of hypertension, hypothyroidism, hyperlipidemia, COPD, CKD 4; CAD, status post stents; obstructive sleep apnea, who presented to the ER complaining of cough, shortness of breath, nausea, and vomiting. The patient was found to be febrile, hypotensive. The patient was transferred to our hospital and was started on Levophed drip. The patient was initially put on BiPAP. Her initial ABG showed pH of 7.25, pCO2 of 32, and pO2 53.1. The patient did not tolerate BiPAP very well and so on 09/19/2018, Dr. Mcdaniel decided to intubate the patient. Her pH at that time was 7.24, pCO2 of 30.4, and pO2 216.6. The patient remained intubated the remainder of her hospitalization. Her ABGs improved significantly with mechanical ventilation. At the time of transfer, her pH was 7.28, pCO2 38.7, and pO2 115.0. The patient was sedated with Versed and fentanyl. The patient was treated initially for septic shock with a suspected lung source. She received adequate fluid resuscitation. Initially had elevated procalcitonin 3.39 that down trended, had an elevated lactate of 2.5 that down trended. She had no growth in her blood cultures, urine cultures, and was influenza negative. She was treated with 8 days of vancomycin and Zosyn. She received Solu-Medrol for suspected COPD exacerbation as well as thiamine and vitamin C. The patient was found on echo to have severe aortic stenosis which likely contributed to her continued . The patient per Dr. Dumont would require valvuloplasty. Dr. Singleton, inspector filter tip, suspected that it would be not possible to wean her off the ventilator until her valvuloplasty was performed. The patient developed worsening pulmonary edema throughout her hospitalization and on 09/28/2018, she was transferred to [facility] for potential evaluation for valvuloplasty. The patient on admission had NSTEMI with a troponin that increased to 1.[address] depression in her lateral leads. The patient received 24 hours of the heparin drip and she was placed on aspirin, Plavix per Dr. Dumont recommendations. The patient will need to be restarted on her home beta nahum once she recovers from this. The patient developed thrombocytopenia. During her hospitalization, her platelets dropped from 224 down to 87. It was suspected that this was due to heparin-induced thrombocytopenia; however, the antibodies came back negative. This could have been due to medication side effect like Zosyn. The patient was able to be taken off pressors on 09/24/2018, she continued to have low blood pressures the remainder of her hospitalization with MAPs stayed above 65. There was concern at one point for having stenosis of her upper extremity arteries due to discrepancy between her upper extremity and lower extremity blood pressures. However, the ultrasound of her upper extremity came back normal, but blood pressures continue to be checked from the lower extremities for remainder of her hospitalization. The patient's condition was discussed with her that she had a very poor prognosis; however, her only potential chance of being able to get weaned off the ventilator was if her aortic valve was fixed. The patient's agreed to transfer to [facility] in [place]. DISPOSITION: Critical, transferred to [facility] in [place]. DIET: Tube feeds at 20 mL/h. FOLLOWUP: Follow up with Dr. Schmitt once discharge from [facility]. PROGNOSIS: Very poor. Job ID: [id number]
== END 2018-09-28 11:04 | disposition short-term general hospital (02) | DRG 870 ==
LOC: ERS 02:48 → CCU 06:35
PROVIDERS: ADMIT Family Medicine; ATTEND Family Medicine
PROC: 5A09357 Assistance with Respiratory Ventilation, Less than 24 Consecutive Hours, Continuous Positive Airway Pressure (ICD-10-PCS; principal; 2018-09-17)
PROC: 02HV33Z Insertion of Infusion Device into Superior Vena Cava, Percutaneous Approach (ICD-10-PCS; 2018-09-17)
PROC: 3E043XZ Introduction of Vasopressor into Central Vein, Percutaneous Approach (ICD-10-PCS; 2018-09-17)
PROC: 5A1955Z Respiratory Ventilation, Greater than 96 Consecutive Hours (ICD-10-PCS; 2018-09-19)
PROC: 0BH17EZ Insertion of Endotracheal Airway into Trachea, Via Natural or Artificial Opening (ICD-10-PCS; 2018-09-19)
PROC: 0DH67UZ Insertion of Feeding Device into Stomach, Via Natural or Artificial Opening (ICD-10-PCS; 2018-09-19)
PROC: 3E0G76Z Introduction of Nutritional Substance into Upper GI, Via Natural or Artificial Opening (ICD-10-PCS; 2018-09-19)
PROC: [UNRECOGNIZED PROCEDURE] (2018-09-24)
DX: A41.9 Sepsis, unspecified organism (principal); J96.01 Acute respiratory failure with hypoxia; R65.21 Severe sepsis with septic shock; R57.0 Cardiogenic shock; I21.4 Non-ST elevation (NSTEMI) myocardial infarction; J18.1 Lobar pneumonia, unspecified organism; J44.1 Chronic obstructive pulmonary disease with (acute) exacerbation; I13.0 Hypertensive heart and chronic kidney disease with heart failure and stage 1 through stage 4 chronic kidney disease, or unspecified chronic kidney disease; N18.4 Chronic kidney disease, stage 4 (severe); J98.11 Atelectasis; R18.8 Other ascites; J44.0 Chronic obstructive pulmonary disease with (acute) lower respiratory infection; Z68.41 Body mass index [BMI] 40.0-44.9, adult; N39.0 Urinary tract infection, site not specified; E87.0 Hyperosmolality and hypernatremia; E87.2 Acidosis; N17.9 Acute kidney failure, unspecified; E87.1 Hypo-osmolality and hyponatremia; R04.2 Hemoptysis; I50.42 Chronic combined systolic (congestive) and diastolic (congestive) heart failure; E03.9 Hypothyroidism, unspecified; E78.5 Hyperlipidemia, unspecified; I25.10 Atherosclerotic heart disease of native coronary artery without angina pectoris; G47.33 Obstructive sleep apnea (adult) (pediatric); I35.0 Nonrheumatic aortic (valve) stenosis; D69.59 Other secondary thrombocytopenia; T36.0X5A Adverse effect of penicillins, initial encounter; E87.6 Hypokalemia; E11.22 Type 2 diabetes mellitus with diabetic chronic kidney disease; R58 Hemorrhage, not elsewhere classified; K76.0 Fatty (change of) liver, not elsewhere classified; N28.1 Cyst of kidney, acquired; E66.01 Morbid (severe) obesity due to excess calories; E11.65 Type 2 diabetes mellitus with hyperglycemia; K21.9 Gastro-esophageal reflux disease without esophagitis; Z66 Do not resuscitate; D63.8 Anemia in other chronic diseases classified elsewhere; J98.01 Acute bronchospasm; E87.8 Other disorders of electrolyte and fluid balance, not elsewhere classified; E11.51 Type 2 diabetes mellitus with diabetic peripheral angiopathy without gangrene; I70.209 Unspecified atherosclerosis of native arteries of extremities, unspecified extremity; Z95.5 Presence of coronary angioplasty implant and graft; Z79.82 Long term (current) use of aspirin; Z79.02 Long term (current) use of antithrombotics/antiplatelets; Z79.4 Long term (current) use of insulin; Z79.890 Hormone replacement therapy; Z87.891 Personal history of nicotine dependence; Z88.8 Allergy status to other drugs, medicaments and biological substances; Z86.73 Personal history of transient ischemic attack (TIA), and cerebral infarction without residual deficits
CPT/HCPCS: 36415; 36416; 36430; 36556; 71045; 76705; 76770; 80048; 80076; 80202; 82542; 82553; 82607; 82728; 82747; 82805; 83540; 83550; 83605; 83735; 83880; 84100; 84145; 84439; 84443; 84484; 85007; 85014; 85018; 85025; 85027; 85046; 85049; 85060; 85610; 85730; 86850; 86900; 86901; 93306; 93923; 94002; 94003; 94640; 94660; 96365; 96366; 96368; 96374; 96376; C9113; J1160; J1644; J1720; J1825; J1940; J2060; J2250; J2543; J2704; J2920; J2930; J3010; J3370; J3411; J3475; J3480; J7050; J7070; J7620; P9016; Q0162